=== PATIENT | female | born 1940 | race Caucasian/White ===

== ENCOUNTER → 2024-03-11 | Outpatient (CLI) | payer MEDICARE, BC, SELFPAY ==
[2024-03-11 12:46] LABS: Basophils % (Auto) 0 % (0-2.5); Eosinophils # (Auto) 0.2 Thou/mm3 (0.0-0.5); Eosinophils % (Auto) 3 % (0-10); Hematocrit 47.7 % (36.0-46.0); Hemoglobin 15.8 g/dL (12.0-16.0); Immature Granulocytes % (Auto) 1 % (0-0); Immature Granulocytes Auto 0.04 Thou/mm3 (0.00-0.00); Lymphocytes # (Auto) 1.3 Thou/mm3 (1.0-4.8); Lymphocytes % (Auto) 18 % (10-50); Mean Corpuscular HGB Conc 33.1 g/dl (31.0-37.0); Mean Corpuscular Hemoglobin 30.3 pg (25.0-35.0); Mean Corpuscular Volume 91 fL (80-100); Monocytes # (Auto) 0.7 Thou/mm3 (0.0-0.8); Monocytes % (Auto) 10 % (0-12); Neutrophils # (Auto) 4.7 Thou/mm3 (1.8-7.7); Neutrophils % (Auto) 68 % (37-80); Nucleated Red Blood Cell % 0 /100 WBC (0); Platelet Count 164 Thou/mm3 (140-440); RDW Standard Deviation 44.9 fL (36.4-46.3); Red Blood Count 5.22 Miln/mm3 (4.00-5.20); White Blood Count 6.9 Thou/mm3 (3.6-11.0)
[2024-03-11 13:05] LABS: Collection Type, Urine Clean Catch
[2024-03-11 13:10] LABS: Alanine Aminotransferase 17 U/L (10-49); Albumin, Serum 4.6 gm/dL (3.4-4.8); Alkaline Phosphatase 73 U/L (46-116); Anion Gap 8 (7-16); Aspartate Amino Transferase 19 U/L (0-34); BUN/Creatinine Ratio 23 Ratio (12-20); Bilirubin,Total 0.7 mg/dL (0.3-1.2); Blood Urea Nitrogen 23 mg/dL (9-23); Calcium 9.9 mg/dL (8.3-10.6); Calcium (Corrected) 9.9 mg/dL (8.5-10.1); Carbon Dioxide 29.2 mMol/L (20.0-31.0); Cardiac Risk Estimate 3.4 RATIO (3.7-5.6); Chloride 105 mMol/L (98-107); Cholesterol 224 mg/dL (132-200); Globulin 2.3 gm/dL (2.3-3.5); Glucose 93 mg/dL (74-106); HDL Cholesterol 65 mg/dL (40-60); LDL Cholesterol,Calculated 141 mg/dL (0-130); Osmolality,Calculated 286 (275-295); Potassium 4.7 mMol/L (3.4-5.1); Sodium 142 mMol/L (136-145); Thyroid Stimulating Hormone 4.63 uIU/mL (0.55-4.78); Total Protein 6.9 gm/dL (5.7-8.2); Triglycerides 89 mg/dL (30-150); eGFR 56 See Note
[2024-03-11 13:35] LABS: Bacteria,Urine 2+; Bilirubin,Urine Negative (Negative); Blood,Urine Trace (Negative); Color,Urine Yellow (Lt Yel-Yel); Glucose, Urine Negative (Negative); Ketones,Urine Negative (Negative); Leukocyte Esterase,Urine Positive (Negative); Nitrite,Urine Negative (Negative); Protein,Urine Trace (Neg - Trace); RBC,Urine 9 /hpf (0-3); Specific Gravity,Urine 1.023 (1.001-1.035); Squamous Epithelial Cell,Urine 1 /hpf (0-5); Urobilinogen,Urine Negative mg/dL (0.0-1.0); WBC,Urine 60 /hpf (0-5)
[2024-03-11 13:44] LABS: Clarity,Urine Hazy (Clear/Hazy)
== END | disposition home or self-care (01) ==
LOC: COPL 12:05
PROVIDERS: PCP Internal Medicine; Referring Provider Internal Medicine; Visit Provider Internal Medicine
DX: E03.9 Hypothyroidism, unspecified (principal); I10 Essential (primary) hypertension; E78.5 Hyperlipidemia, unspecified
CPT/HCPCS: 36415; 80053; 80061; 81001; 84443; 85025

== ENCOUNTER 2024-03-22 08:36 | Inpatient (IN) | payer MEDICARE, BC, SELFPAY ==
[2024-03-22] VITALS (24 sets, daily range): BP systolic 83–128; BP diastolic 52–80; PULSE 73–130; RESP 12–84; TEMP 36.5–37.1; O2SAT 87–100; BMI 28.3
--- NOTE | 2024-03-22 | XR_ITS ---
Examination: Right percutaneous nephrostomy drainage catheter placement Right nephrostogram Fluoroscopy AP abdomen 32 views Date and time of procedure: March 22, 2024 1510 hours INDICATIONS: Sepsis today, right flank pain, right hydronephrosis 4 x 8 mm proximal right ureteral calculus on CT stone study today, emergent need for relief of the patient's right hydronephrosis Informed consent provided. A timeout was completed verifying correct patient, procedure, site and positioning. Technique: Sonographic images obtained for localization of the right dilated renal collecting system Appropriate area is marked. The patient's site was prepped and draped in sterile fashion Maximal sterile barrier technique utilized, including hand hygiene Local anesthesia was obtained with 1% lidocaine. Low dose protocols were performed. One or more of the following dose reduction techniques were used; automated exposure control, adjustment of the mA and/or KV according to patient size, use of iterative reconstruction technique. Site right portable apparatus utilized to confirm dilated right renal collecting system Utilizing ultrasonographic guidance successful 21-gauge needle puncture into the dilated renal collecting system Ultrasound images recorded and stored 0.18 wire guide is introduced through the needle into the renal collecting system followed by 5 Malay catheter 0.35 wire guide dilators and finally a 10 Malay nephrostomy tube in proper position with contrast injection cystogram 10 cc. Estimated blood loss 4 cc Patient instable condition at completion procedure Impression: Successful ultrasound and fluoroscopically guided insertion right percutaneous nephrostomy tube Right nephrostogram demonstrates satisfactory position of the nephrostomy drainage catheter Fluoroscopy 0.8 minute radiation dose 21.58 milligray 32 spot fluoroscopic films of the abdomen
--- NOTE | 2024-03-22 08:58 | EDNOTE_ITS ---
ED Fever RME/HPI General Chief Complaint: Fever Stated Complaint: FEVER/ HEADACHE Time Seen by Provider: 03/22/24 08:57 Arrival date/time: 03/22/24 08:36 RME / HPI RME / HPI Narrative: 83 year old female with history of CVA, hypertension, hyperlipidemia, hypothyroidism, PE/DVT on Eliquis presents to the ED BIBA from home for evaluation of feeling lousy today. Reports fevers x 2 days, nausea, vomiting, headache, and abdominal pain. Reports the pain is located most to the right mid abdomen that moves around to right flank/back, rating as moderate. Patient mentioned she was recently diagnosed with a bladder infection and started on Amoxicillin. Today denies any painful urination or hematuria. Related Data Home Medications ?Medication ?Instructions ?Recorded ?Confirmed levothyroxine 50 mcg tablet 50 mcg PO QAM 12/15/18 12/18/21 amlodipine 5 mg tablet 5 mg PO QDAY 12/18/21 12/18/21 atenolol 50 mg tablet 50 mg PO QDAY 12/18/21 12/18/21 atorvastatin 10 mg tablet 10 mg PO QDAY 12/18/21 09/18/23 Previous Rx's ?Medication ?Instructions ?Recorded warfarin 5 mg tablet 5 mg PO QDAY@1200 #30 tabs 09/21/23 Allergies Allergy/AdvReac Type Severity Reaction Status Date / Time acetaminophen [From Vicodin] Allergy Severe Rash Verified 12/18/21 09:41 hydrocodone [From Vicodin] Allergy Severe Rash Verified 12/18/21 09:41 nut - unspecified Allergy Severe Swelling Verified 12/18/21 09:41 of Lip/Tongue/Throat peanut Allergy Severe Swelling Verified 09/18/23 09:31 of Lip/Tongue/Throat latex Allergy Unknown RASH Verified 12/18/21 09:41 Review of Systems Review of Systems Narrative Review of Systems: GEN: +fever, no chills, no weight loss EYES: No discharge, no visual changes, no pain HEENT: No ear pain, no congestion, no sore throat PULM: No shortness of breath, no cough, no congestion CV: No chest pain, no palpitations GI: +nausea, +vomiting, no diarrhea, +pain, no constipation : No frequency, no urgency, no dysuria MUSC/SKEL: No joint pain, +back pain SKIN: No rash NEURO: No weakness, +headache Past Medical History Past Medical History NEUROLOGIC: Positive Neurological Disorders, Cerebrovascular Accident (5 years ago) and Migraine CARDIAC: Positive Heart Murmur, Hypercholesterolemia and Hypertension RESPIRATORY: Positive Pulmonary Embolism (stopped taking xarelto beginning of mar 2023 due to wagner of medicine) Family History FAMILY HISTORY: Positive Family Cancer Surgical History SURGICAL: Positive Hysterectomy Social History SMOKING STATUS: Never smoker SUBSTANCE USE: does not use Physical Exam Narrative Physical exam: GENERAL APPEARANCE: alert and oriented x 4, well-developed, well-nourished, no acute distress HEENT: Normocephalic, atraumatic; pupils equal, round, reactive to light; EOMI; mucous membranes pink, moist; oropharynx clear NECK: Supple LUNGS: CTABL; no wheezes, no rales, no rhonchi HEART: Regular rate, regular rhythm; normal S1, S2; no murmurs ABDOMEN: non distended; normal BS; soft, no tenderness, no guarding, no rebound; no masses, no organomegaly, no hernia BACK: no CVA tenderness EXTREMITIES: atraumatic; no edema NEUROLOGIC: awake; alert and oriented x4; cranial nerves II-XII grossly intact; no focal sensory or motor deficits PSYCHIATRIC: appropriate mood and affect SKIN: warm, dry, normal color; no rashes Course Course Course Narrative: 1211: I spoke with transfer nurse and aware of plan to transfer for urology. 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 Care 03/22/24 09:03 Active EKG (ED ONLY) *Do not use* NOW Care 03/22/24 09:[address] abdomen pelvis wo con Stat Exams 03/22/24 09:08 Completed EKG (ED Only) Stat Exams 03/22/24 09:03 Draft IR nephrostogram RT Stat Exams 03/22/24 Ordered IR nephrostogram RT Stat Exams 03/22/24 Ordered US guide needle placement Stat Exams 03/22/24 15:00 Ordered XR chest 1V portable Stat Exams 03/22/24 09:03 Completed B-Type Natriuretic Peptide Stat Lab 03/22/24 09:27 Completed Blood Culture (Lab) Stat Lab 03/22/24 09:20 Received CBC Stat Lab 03/22/24 09:27 Completed Comprehensive Metabolic Panel Stat Lab 03/22/24 09:27 Completed Lactate (Lactic Acid) Stat Lab 03/22/24 09:27 Completed Lactic Acid, 3 HR Stat Lab 03/22/24 13:08 Completed Lipase Stat Lab 03/22/24 09:27 Completed Magnesium Stat Lab 03/22/24 09:27 Completed Partial Thromboplastin Time Stat Lab 03/22/24 09:27 Completed Procalcitonin Stat Lab 03/22/24 09:27 Completed Prothrombin Time with INR Stat Lab 03/22/24 09:27 Completed Troponin I Stat Lab 03/22/24 09:27 Completed Urinalysis Stat Lab 03/22/24 12:30 Completed Urine Culture Stat Lab 03/22/24 12:30 Received Aspirin Chew Med 03/22/24 12:03 Discontinued 324 mg PO X1 ONE Lidocaine 1% Pf 30 ml [Xylocaine 1% Pf 30 ml] Med 03/22/24 15:10 Discontinued 30 ml .ROUTE .STK-MED ONE NALOXONE INJ (Vial) [Narcan Inj (Vial)] Med 03/22/24 15:09 Discontinued 0.4 mg .ROUTE .STK-MED ONE Ondansetron Inj [Zofran Inj] Med 03/22/24 15:10 Discontinued 4 mg .ROUTE .STK-MED ONE Sodium Chloride 0.9% 1000 ml [Ns] 1,000 ml Med 03/22/24 09:03 Discontinued IV 999 mls/hr Sodium Chloride 0.9% 1000 ml [Ns] 1,000 ml Med 03/22/24 12:03 Discontinued IV 999 mls/hr cefTRIAXone [Rocephin] 1,000 mg Med 03/22/24 09:04 Discontinued Sodium Chloride 0.9% [Ns] 50 ml IV X1 fentaNYL INJ [Sublimaze Inj] Med 03/22/24 15:10 Discontinued 200 mcg .ROUTE .STK-MED ONE Vital Signs Vital signs: Vital Signs Temperature 97.9 F 03/22/24 08:39 Pulse Rate 119 H 03/22/24 08:39 Respiratory Rate 18 03/22/24 08:39 Blood Pressure 91/62 03/22/24 08:39 Pulse Oximetry (%) 93 L 03/22/24 08:39 Oxygen Delivery Method Room Air 03/22/24 08:39 Pulse ox is 93% on room air which is adequate. Fever MDM Narrative MDM Narrative:: IKristen, luis scribing for and in the presence of Dr. Mary. Patient data External records reviewed:: [facility] previous records (I reviewed admission from 09/17/2023 through 09/21/2023 for PE. Patient has no previous urine cultures. ) and EMS form Clinical information provided by:: patient and EMS (Provided prehospital course) Social determinants that could affect healthcare access:: none Patient has the following chronic illnesses:: CVA, hypertension, hyperlipidemia, hypothyroidism, PE/DVT on Eliquis How is presenting disease/condition affected by chronic disease/condition?: exacerbated by Evaluation data The following diagnostics were reviewed and interpreted by me:: lab results, radiology exam(s) and EKG tracing(s) (Sinus tachycardia, rate 101, right bundle branch block. ) Lab and/or radiology exams considered but not ordered:: None Interpretation Summary: Ordering Physician: Jackeline Mary MD Date of Service: 03/22/24 Procedure(s): XR chest 1V portable Accession Number(s): [id number] cc: Ron Min MD; Jcakeline Mary MD; Vitaly Gallagher MD~ Examination: AP chest single view TECHNIQUE: AP portable sitting chest single view Exam date and time: March 22, 2024 at 0919 hours Comparison September 17, 2023 INDICATIONS: Chest pain today. FINDINGS: Normal heart size Ectatic thoracic aorta. Mild vascular congestion. No lobar pneumonia or pulmonary edema Prominent osteopenia IMPRESSION: Mild vascular congestion Dictated By: Ron Min MD Signed By: <Electronically signed by Ron Min MD in OV> 03/22/24 1042 ======= Ordering Physician: Jackeline Mary MD Date of Service: 03/22/24 Procedure(s): CT abdomen pelvis wo con Accession Number(s): [id number] cc: Ron Min MD; Jackeline Mary MD; Vitaly Gallagher MD~ Examination: CT abdomen and pelvis without contrast. Coronal 3-D reconstructions. Sagittal 2-D reconstructions. Date and time of exam:March 22, 2024 0931 hours INDICATIONS: Onset right-sided flank pain with fever today CTDI: vol (mGy): 9.49 DLP: (mGycm): 486 Technique: Axial images of the abdomen have been obtained, 3 mm slice thickness Intravenous contrast material has not been administered. Low dose protocols were performed. One or more of the following dose reduction techniques were used; automated exposure control, adjustment of the mA and/or KV according to patient size, use of iterative reconstruction technique. 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 IMPRESSION: Mild right hydronephrosis secondary to 4 x 8 mm proximal right ureteral calculus Dictated By: Ron Min MD Signed By: <Electronically signed by Ron Min MD in OV> 03/22/24 1056 Medications / Prescriptions Medications or Prescriptions considered but not ordered:: None Medication administrations:: Medication Administration History Discontinued Medications Aspirin (Aspirin 81 Mg Chew) 324 mg PO X1 ONE Stop: 03/22/24 12:04 Last Admin: 03/22/24 12:11 Dose: 324 mg Documented By: JOJO Fentanyl Citrate (Fentanyl Cit Inj 50 Mcg/Ml Amp 2ml) Confirm Administered Dose 200 mcg .ROUTE .STK-MED ONE Stop: 03/22/24 15:11 Sodium Chloride (Ns) 1,000 mls @ 999 mls/hr IV .Q1H1M ONE Stop: 03/22/24 10:03 Last Infusion: 03/22/24 11:04 Dose: Infused Documented By: Admin: 03/22/24 09:22 Dose: 999 mls/hr Documented By: JOJO Ceftriaxone Sodium 1,000 mg/ (Sodium Chloride) 50 mls @ 100 mls/hr IV X1 ONE Stop: 03/22/24 09:33 Last Infusion: 03/22/24 11:03 Dose: Infused Documented By: Admin: 03/22/24 09:22 Dose: 100 mls/hr Documented By: JOJO Sodium Chloride (Ns) 1,000 mls @ 999 mls/hr IV .Q1H1M ONE Stop: 03/22/24 13:03 Last Infusion: 03/22/24 14:44 Dose: Infused Documented By: Admin: 03/22/24 12:06 Dose: 999 mls/hr Documented By: JOJO Lidocaine HCl (Lidocaine Inj Pf 1% 30 Ml Vial) Confirm Administered Dose 30 ml .ROUTE .STK-MED ONE Stop: 03/22/24 15:11 Naloxone HCl (Naloxone Inj 0.4 Mg/Ml Vial) Confirm Administered Dose 0.4 mg .ROUTE .STK-MED ONE Stop: 03/22/24 15:10 Ondansetron HCl (Ondansetron Inj 2 Mg/Ml Inj 2 Ml) Confirm Administered Dose 4 mg .ROUTE .STK-MED ONE Stop: 03/22/24 15:11 See above Consultations Consultation(s) initiated? (list below): Yes Consultation #1 (Physician, Specialty, Details): I spoke with transfer nurse at [facility]. Discussed patients PMHx, HPI, ED course, exam findings, labs, and radiology results. Time: 13:38 Consultation #2 (Physician, Specialty, Details): I spoke with Malena, transfer nurse at [facility]. States she presented the case to [facility] urologist Dr. Amaury Guerra who recommended IR to place a nephrostomy and treat the sepsis here. States she can follow up with patient on an outpatient basis. Time: 14:35 Consultation #3 (Physician, Specialty, Details): 1438: I spoke with radiologist Dr. Min. Discussed patients HPI, ED course, radiology results, and urologist Dr. Guerra's recommendations. States he is able to inset nephrostomy. 1441: I spoke with resident Dr. Quresh working with Dr. Rasheed. Discussed patients PMHx, HPI, ED course, exam findings, labs, and radiology results. The hospitalist agree to accept the patient for admission. 1510: Dr. Rasheed reports patient's PCP is Dr. Gallagher, advised we consult with her for admission. 1520: I spoke with patients PCP Dr. Gallagher. Discussed patients PMHx, HPI, ED course, exam findings, labs, and radiology results. She agrees to accept the patient for admission. Diagnosis Fever Differential Diagnosis: fever of unknown origin, gastroenteritis, comm unity acquired pneumonia, pyelonephritis, viral infection, sepsis and influenza Most likely diagnosis given after review of the tests above:: Elevated troponin Hydronephrosis with urinary obstruction due to reteral calculus Right ureteral stone Thrombocytopenia Hypokalemia Sepsis Acute UTI Admission Indicated Admission indicated?: indicated Admission Request Was there a request for admission?: Yes Admission Attestation Admission request attestation: Discussed case with [] from Hospitalist service regarding admission. Discussed patients ED course, exam findings, labs, and radiology results. The Hospitalist [agrees,declines] to accept the patient for admission. Disposition Plan Disposition Plan: Admit Discharge Plan Plan Patient Disposition: Admit Acute Care w/in Hospital Disposition Comment: Dr. Gallagher admitting Prescriptions/Referrals Prescriptions/Med Rec: No Action levothyroxine 50 mcg tablet 50 mcg PO QAM Patient Comments: TAKE 1 TABLET BY MOUTH EVERY DAY atorvastatin 10 mg tablet 10 mg PO QDAY Patient Comments: TAKE 1 TABLET BY MOUTH EVERY DAY amlodipine 5 mg tablet 5 mg PO QDAY Patient Comments: TAKE 1 TABLET BY MOUTH EVERY DAY atenolol 50 mg tablet 50 mg PO QDAY Patient Comments: TAKE 1 TABLET BY MOUTH EVERY DAY warfarin 5 mg Tablet 5 mg PO QDAY@1200 Qty: 30 0RF Referrals: Vitaly Gallagher MD [Primary Care Provider] - In 1 week Problem List Clinical Impression: Elevated troponin, Hydronephrosis with urinary obstruction due to ureteral calculus, Right ureteral stone, Thrombocytopenia, Hypokalemia, Sepsis, Acute UTI Patient/Caregiver Discharge Instructions Print Language: Malawian Stand Alone Forms: Josi Award Info., Patient Portal Info Letter
--- NOTE | 2024-03-22 09:03 | XR_ITS ---
Examination: AP chest single view TECHNIQUE: AP portable sitting chest single view Exam date and time: March 22, 2024 at 0919 hours Comparison September 17, 2023 INDICATIONS: Chest pain today. FINDINGS: Normal heart size Ectatic thoracic aorta. Mild vascular congestion. No lobar pneumonia or pulmonary edema Prominent osteopenia IMPRESSION: Mild vascular congestion
--- NOTE | 2024-03-22 09:03 | EKG_ITS ---
[facility] Test Date: 2024-03-22 Pat Name: ZENIA DIAZ Department: Room: - Gender: Female Civil Attorney: : 1940 Requested By: Jackeline Grider Order Number: [id number] Reading MD: Jackeline Grider Measurements Intervals [place] Rate: 101 P: -8 [place]: 128 QRS: -57 QRSD: 122 T: -14 QT: 322 QTc: 419 Interpretive Statements SINUS TACHYCARDIA RIGHT BUNDLE BRANCH BLOCK [120+ ms QRS DURATION, UPRIGHT V1, 40+ ms S IN I/aVL/V4/V5/V6] LEFT ANTERIOR FASCICULAR BLOCK [QRS AXIS <= -45, QR IN I, RS IN II] POSSIBLE ANTERIOR MYOCARDIAL INFARCTION , OF INDETERMINATE AGE [30 ms Q WAVE IN V3/V4, OR R < 0.2 mV IN V4] Compared to ECG 12/15/2018 11:22:44 Myocardial infarct finding now present Sinus rhythm no longer present /store/S0/[id number].pdf
--- NOTE | 2024-03-22 09:08 | XR_ITS ---
Examination: CT abdomen and pelvis without contrast. Coronal 3-D reconstructions. Sagittal 2-D reconstructions. Date and time of exam:March 22, 2024 0931 hours INDICATIONS: Onset right-sided flank pain with fever today CTDI: vol (mGy): 9.49 DLP: (mGycm): 486 Technique: Axial images of the abdomen have been obtained, 3 mm slice thickness Intravenous contrast material has not been administered. Low dose protocols were performed. One or more of the following dose reduction techniques were used; automated exposure control, adjustment of the mA and/or KV according to patient size, use of iterative reconstruction technique. 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 IMPRESSION: Mild right hydronephrosis secondary to 4 x 8 mm proximal right ureteral calculus
[2024-03-22] MEDS: SODIUM CHLORIDE 0.9% 1000 ML 1,000 ML 999 ML IV ×2 (09:22→12:06)
[2024-03-22 09:36] LABS: Lactate (Lactic Acid) 3.5 mMol/L (0.4-2.0)
[2024-03-22 09:43] LABS: Basophils % (Auto) 0 % (0-2.5); Eosinophils % (Auto) 0 % (0-10); Hematocrit 45.9 % (36.0-46.0); Hemoglobin 15.1 g/dL (12.0-16.0); Immature Granulocytes % (Auto) 2 % (0-0); Immature Granulocytes Auto 0.16 Thou/mm3 (0.00-0.00); Lymphocytes # (Auto) 0.2 Thou/mm3 (1.0-4.8); Lymphocytes % (Auto) 2 % (10-50); Mean Corpuscular HGB Conc 32.9 g/dl (31.0-37.0); Mean Corpuscular Volume 91 fL (80-100); Monocytes # (Auto) 0.1 Thou/mm3 (0.0-0.8); Monocytes % (Auto) 1 % (0-12); Neutrophils # (Auto) 10.5 Thou/mm3 (1.8-7.7); Neutrophils % (Auto) 95 % (37-80); Nucleated Red Blood Cell % 0 /100 WBC (0); Platelet Count 85 Thou/mm3 (140-440); RDW Standard Deviation 45.7 fL (36.4-46.3); Red Blood Count 5.03 Miln/mm3 (4.00-5.20)
[2024-03-22 09:55] LABS: INR 1.2 (0.9-1.3); Partial Thromboplastin Time 29.6 Seconds (22.0-36.0)
[2024-03-22 10:01] LABS: B-Type Natriuretic Peptide 168 pg/mL (0-100)
[2024-03-22 10:21] LABS: Alanine Aminotransferase 31 U/L (10-49); Albumin, Serum 3.8 gm/dL (3.4-4.8); Albumin/Globulin Ratio 1.7 (1.2-2.2); Alkaline Phosphatase 100 U/L (46-116); Anion Gap 11 (7-16); Aspartate Amino Transferase 45 U/L (0-34); BUN/Creatinine Ratio 17 Ratio (12-20); Bilirubin,Total 1.7 mg/dL (0.3-1.2); Blood Urea Nitrogen 25 mg/dL (9-23); Calcium (Corrected) 9.2 mg/dL (8.5-10.1); Carbon Dioxide 25.6 mMol/L (20.0-31.0); Chloride 104 mMol/L (98-107); Creatinine (Component) 1.5 mg/dL (0.6-1.3); Estimated Creatinine Clearance 23.4 mL/min (>60); Globulin 2.2 gm/dL (2.3-3.5); Glucose 111 mg/dL (74-106); Lipase 38 U/L (12-53); Magnesium 1.6 mg/dL (1.6-2.6); Osmolality,Calculated 286 (275-295); Potassium 3.3 mMol/L (3.4-5.1); Sodium 141 mMol/L (136-145); eGFR 35 See Note
[2024-03-22 10:36] LABS: Procalcitonin 75.43 ng/ml (0.0-0.49)
[2024-03-22 10:50] LABS: Troponin I 0.375 ng/mL (0.0-0.045)
[2024-03-22] MEDS: ASPIRIN 81 MG CHEW 324 MG PO (12:11)
[2024-03-22 12:33] LABS: Reflex Lactate? Y
[2024-03-22 12:38] LABS: Collection Type, Urine Clean Catch
[2024-03-22 12:48] LABS: Bacteria,Urine 1+; Bilirubin,Urine Negative (Negative); Blood,Urine 3+ (Negative); Color,Urine Yellow (Lt Yel-Yel); Glucose, Urine Negative (Negative); Ketones,Urine Negative (Negative); Leukocyte Esterase,Urine Positive (Negative); Nitrite,Urine Negative (Negative); Protein,Urine 2+ (Neg - Trace); RBC,Urine 42 /hpf (0-3); Specific Gravity,Urine 1.022 (1.001-1.035); Squamous Epithelial Cell,Urine 2 /hpf (0-5); WBC,Urine 321 /hpf (0-5)
[2024-03-22 13:12] LABS: Clarity,Urine Hazy (Clear/Hazy)
[2024-03-22 13:13] LABS: Lactic Acid, 3 HR 3.5 mMol/L (0.4-2.0)
--- NOTE | 2024-03-22 13:19 | PC.CM ---
Addendum entered by Jaswinder Cespedes RN 03/22/24 17:02: 1655 faxed the outpatient referral to [facility] at [phone]. I also added the information on the discharge plan. 1649 called [facility] at [phone]. Unable to make appt for the pt. Unable to speak to anyone. Addendum entered by Jaswinder Cespedes RN 03/22/24 16:41: 1620 Received updated referral from for urology Dr. Amaury Guerra. [facility]. [address], [address]. [place]. Office number [phone]. 1619 called [phone]. It is the number for [facility] stat transfers, spoke to Malena. Malena stated she will fax me a new referral form with updated number. 1600 I called the number [phone] to make appt for the pt. It was picked up by [facility]. The employee representative informed me to call [phone] instead. Addendum entered by Jaswinder Cespedes RN 03/22/24 15:19: [address] Mary regarding POC. Dr. Simon stated pt will be admitted. I also updated Dr. Simon that I received blank form from [facility] regarding outpatient referral. Pt to follow up with urologist Dr. Amaury Guerra in 2 weeks at [address] [place], [place] [id number]. , fax [phone]. Pt to call the urology center and make appt. per [facility]. Addendum entered by Jaswinder Cespedes RN 03/22/24 14:42: 1433 received call from Malena at [facility]. Per Malena her urologist Dr. Amaury Davidson stated IR can place nephrostomy tube and treat the pt infection and pt can be followed as a outpatient with her in 2 weeks. Malena also wants to speak to Dr. Simon. Conference call connected. Addendum entered by Jaswinder Cespedes RN 03/22/24 13:40: 1340 images pushed to [facility] via [employer]. Addendum entered by Jaswinder Cespedes RN 03/22/24 13:36: 1332 Called [facility], spoke to Malena and initiated the transfer. Malena wants to speak with Dr. Mary. Conference call connected. Addendum entered by Jaswinder Cespedes RN 03/22/24 13:30: 1330 Called [facility] to initiate the transfer, left VM. Original Note: 1318 clinicals sent to [facility] and [facility]. [address] Mary, pt needs to be transferred for obstructing kidney stone needs urology services.
--- NOTE | 2024-03-22 15:00 | XR_ITS ---
Examination: Limited renal sonogram Exam date and time: March 22, 2024 1321 hours INDICATIONS: Renal localization right kidney for nephrostomy, CT abdomen pelvis study March 22, 2024 mild right hydronephrosis 4 x 8 mm proximal right ureteral calculus TECHNIQUE AND FINDINGS: Sonographic images right kidney for localization, marked area on the right flank IMPRESSION: Limited right renal sonogram
--- NOTE | 2024-03-22 15:11 | PD.ADDHP ---
Addendum History & Physical Addendum Date of report being addended: 03/22/24 Narrative: Attending's attestation: I reviewed labs, imaging, EKG, home medications and prior available records. Face to face evaluation was performed by me. I have personally examined the patient and discussed assessment and plan with the IM team. I reviewed the resident note and agree with the plan with exceptions as below. Obstructive uropathy Acute UTI YOLANDA Nausea and vomiting Non-STEMI Thrombocytopenia Hypothyroidism History of DVT Plan: Transfer was rejected by [facility]. Contacted IR: Plan for nephrostomy tube Start IV Zosyn IV fluids Follow-up UA Monitor kidney function. Avoid nephrotoxins. Renally dosed medications Elevated troponin is likely demand ischemia. Trend troponin. Continue telemetry Resume home anticoagulation
[2024-03-22] MEDS: LIDOCAINE INJ PF 1% 30 ML VIAL INFL (15:21)
[2024-03-22] MEDS: SODIUM CHLORIDE 0.9% 250 ML 250 ML 20 ML IV (15:21)
[2024-03-22] MEDS: fentaNYL CIT INJ 50 mCg/ML AMP 2ML IVP ×2 (15:36→15:38)
--- NOTE | 2024-03-22 15:55 | PD.RESHP ---
Documentation for date of: 03/22/24 HPI History of Present Illness Chief complaint: Abdominal pain History of present illness: HPI:An 83-year-old female patient known case of hypertension, dyslipidemia, hypothyroidism, stroke, DVTs on Eliquis, presented to the ED due to abdominal pain started 3 days before admission. The pain started in the right side and it moved to the right loin and to the back. The pain is associated with fever and chills she also mentioned that she has difficulty urinating. She feels that she is still have full bladder even after she urinated. Patient denied any hematuria denied any cough or shortness of breath. Denied any palpitation or chest pain. Denied any dizziness or fall down. Home medications: Amlodipine, atorvastatin, levothyroxine, Eliquis ED course:-At the ED patient was found to have blood pressure of 91/62, pulse rate of 116, respiratory rate of 18, temperature of 97.9, she was found to have WBC count of 11, hemoglobin stable at 15.1, noticed to have significantly low platelets of 85, had INR was found to be 1.1, potassium 3.3, BUN of 25, creatinine 1.5 her baseline serum creatinine is 9, glucose of 111, lactic acid of 3.5, total bilirubin 1.7, troponin 0.394, BMP 168, procalcitonin found to be 75 chest x-ray showed mild vascular congestion, CT scan of the abdomen and pelvis showed mild right hydronephrosis secondary to 4 x 8 mm proximal right ureteral calculus. Patient was given 2 L bolus of IV fluids by the ED team, she is now on maintenance, and she was given 1 dose of Zosyn. Past medical history of: As above Social hx: Alcohol: Denied Tobacco: Denied Illicit drugs: Denied Allergies: Morphine Review of Systems Review of Systems Systems Reviewed: All systems reviewed, normal except as documented Past Medical History Past Medical History NEUROLOGIC: Positive Neurological Disorders, Cerebrovascular Accident and Migraine; Negative Seizures CARDIAC: Positive Heart Murmur, Hypercholesterolemia and Hypertension; Negative Cardiac Disorders or Congestive Heart Failure RESPIRATORY: Positive Pulmonary Embolism; Negative Chronic Obstructive Pulmonary Disease (COPD), Asthma or Sleep Apnea GASTROINTESTINAL: Negative Gastrointestinal Disorders GENITOURINARY: Negative Genitourinary Disorders or Renal Disease MUSCULOSKELETAL: Negative Musculoskeletal Disorders ENDOCRINE: Negative Endocrine Disorders, Diabetes Mellitus Type 1 or Diabetes Mellitus Type 2 HEMATOLOGIC: Negative Blood Disorders or Sickle Cell Disease OTHER HISTORY: Negative Blood Transfusions, Blood Transfusion Reaction or Anesthesia Reactions Family History FAMILY HISTORY: Positive Family Cancer Surgical History SURGICAL: Positive Hysterectomy Social History SMOKING STATUS: Never smoker SUBSTANCE USE: does not use Exam Vital Signs Temp Pulse Resp BP Pulse Ox O2 Del Method O2 Flow Rate 98.7 F 98 20 113/72 100 Nasal Cannula 2 03/22/24 12:02 03/22/24 15:55 03/22/24 15:55 03/22/24 15:00 03/22/24 15:55 03/22/24 15:00 03/22/24 15:55 Narrative Exam GEN: AOx3, able to speak full sentences HEENT: NC/AC, oral mucosa moist, neck supple CVS: RRR, S1-S2 present, no murmurs appreciated RESP: CTAB GI: soft,non distended, Rt CVA tender, NBS MSK: able to move all 4 limbs, no lower extremity edema SKIN: warm and dry AUTOMOBILE ASSEMBLER: CN II-XII and Sensation grossly intact. Results: Labs 03/22/24 09:27 03/22/24 09:27 Labs: Short CBC 03/22/24 Range/Units 09:27 WBC 11.0 (3.6-11.0) Thou/mm3 Hgb 15.1 (12.0-16.0) g/dL Hct 45.9 (36.0-46.0) % Plt Count 85 L D (140-440) Thou/mm3 BMP 03/22/24 09:27 Sodium 141 Potassium 3.3 L Chloride 104 Carbon Dioxide 25.6 BUN 25 H Creatinine 1.5 H Glucose 111 H Calcium 9.0 Cardiac Enzymes 03/22/24 Range/Units 09:27 Troponin I 0.375 H* (0.0-0.045) ng/mL Liver Function 03/22/24 Range/Units 09:27 Total Bilirubin 1.7 H (0.3-1.2) mg/dL AST 45 H (0-34) U/L ALT 31 (10-49) U/L Alkaline Phosphatase 100 (46-116) U/L Albumin 3.8 (3.4-4.8) gm/dL Urine 03/22/24 Range/Units 12:30 Urine Color Yellow (Lt Yel-Yel) Urine Clarity Hazy (Clear/Hazy) Urine pH 6.0 (5.0-7.0) Ur Specific [place] 1.022 (1.001-1.035) Urine Protein 2+ A (Neg - Trace) Urine Glucose (UA) Negative (Negative) Quality Measures Quality Measures sepsis Current suspected stage: septic shock (LA >4 and/or hypotension) IVF 30 ml/kg given for lactic acid >4 and/or hypotension: yes Vasopressors initiated: No Sepsis reassessment completed at (date): 03/22/24 Sepsis reassessment completed at (time): 16:00 Possible source: genitourinary Blood cultures ordered: completed in ED Antibiotic ordered: Yes Advance care planning discussed with:: patient Medications Home Medications and Allergies Home Medications ?Medication ?Instructions ?Recorded ?Confirmed ?Type levothyroxine 50 mcg tablet 50 mcg PO QAM 12/15/18 12/18/21 History amlodipine 5 mg tablet 5 mg PO QDAY 12/18/21 12/18/21 History atenolol 50 mg tablet 50 mg PO QDAY 12/18/21 12/18/21 History atorvastatin 10 mg tablet 10 mg PO QDAY 12/18/21 09/18/23 History Allergies Allergy/AdvReac Type Severity Reaction Status Date / Time acetaminophen [From Vicodin] Allergy Severe Rash Verified 12/18/21 09:41 hydrocodone [From Vicodin] Allergy Severe Rash Verified 12/18/21 09:41 nut - unspecified Allergy Severe Swelling Verified 12/18/21 09:41 of Lip/Tongue/Throat peanut Allergy Severe Swelling Verified 09/18/23 09:31 of Lip/Tongue/Throat latex Allergy Unknown RASH Verified 12/18/21 09:41 Visit Medications Fentanyl Citrate (Fentanyl Cit Inj 50 Mcg/Ml Amp 2ml) 50 mcg IVP Q2M PRN PRN Reason: PAIN Last Admin: 03/22/24 15:36 Dose: 50 mcg Fentanyl Citrate (Fentanyl Cit Inj 50 Mcg/Ml Amp 2ml) 30 mcg IVP Q2HR CHRIS Stop: 03/27/24 15:59 Sodium Chloride (Ns) 250 mls @ 20 mls/hr IV .[id number] CHRIS Stop: 03/23/24 03:59 Last Admin: 03/22/24 15:21 Dose: 20 mls/hr Piperacillin/Tazobactam/Dextrose (Zosyn) 100 mls @ 200 mls/hr IV Q8HR CHRIS Stop: 03/29/24 15:48 Piperacillin/Tazobactam/Dextrose (Zosyn) 50 mls @ 100 mls/hr IV X1 ONE Stop: 03/22/24 16:29 Ondansetron HCl (Ondansetron Inj 2 Mg/Ml Inj 2 Ml) 4 mg IV Q6H PRN; Protocol PRN Reason: NAUSEA OR VOMITING Stop: 04/21/24 15:42 Discontinued Medications Aspirin (Aspirin 81 Mg Chew) 324 mg PO X1 ONE Stop: 03/22/24 12:04 Last Admin: 03/22/24 12:11 Dose: 324 mg Sodium Chloride (Ns) 1,000 mls @ 999 mls/hr IV .Q1H1M ONE Stop: 03/22/24 10:03 Last Infusion: 03/22/24 11:04 Dose: Infused Ceftriaxone Sodium 1,000 mg/ (Sodium Chloride) 50 mls @ 100 mls/hr IV X1 ONE Stop: 03/22/24 09:33 Last Infusion: 03/22/24 11:03 Dose: Infused Sodium Chloride (Ns) 1,000 mls @ 999 mls/hr IV .Q1H1M ONE Stop: 03/22/24 13:03 Last Infusion: 03/22/24 14:44 Dose: Infused Lidocaine HCl (Lidocaine Inj Pf 1% 30 Ml Vial) 30 ml INFL X1 ONE Stop: 03/22/24 15:20 Last Admin: 03/22/24 15:21 Dose: 30 ml Assessment & Plan Plan Summary:An 83-year-old female patient known case of hypertension, dyslipidemia, hypothyroidism, stroke, DVTs on Eliquis, presented to the ED due to abdominal pain started 3 days before admission. The pain started in the right side and it moved to the right loin and to the back. Patient was admitted for treatment of sepsis secondary to UTI Assessment and plan #Sepsis secondary to UTI #Pyelonephritis of the right side #Right kidney stone obstructive status post nephrostomy Patient presented with right-sided acute abdominal pain associated with fever and chills, WBC increased to 11, pulse rate was 119, she reported fever in which she used Tylenol at home. Urine analysis showed high level of WBCs CT scan showed obstructive hydronephrosis of the right kidney. Plan ? Admit patient to telemetry ? Start the patient on Zosyn IV every 8 hours 03/21? ? Tylenol for fever as needed ? Follow-up on the culture and urine culture results ? Nephrostomy care daily ? Consultation to the to the urologist Dr. Del Rosario was sent, pending recommendations ? Will hold her blood thinners medication today as we noticed blood in the nephrostomy bag ? Lactic acid trending # Elevated troponin-doubt Non-STEMI type II most likely myocardial strain Patient denied any chest pain, denied any shortness of breath, denied any previous episodes of heart attacks. Troponin was noticed to be mildly elevated 0.365. EKG was nonsignificant . Only showed old right bundle branch block with no signs of ischemic changes. Plan ? Trending troponin every 6 hours ? Will consider consulting horticultural services supervisor after significant increase of serum troponin or chest pain. #History of multiple DVTs Plan ? Will hold on her home medication Eliquis at this time after the nephrostomy ?Will consider resuming Eliquis within the next 24 to 48 hours #History of hypothyroidism Plan ? Resume home medication levothyroxine 50 mcg/day #History of hypertension On presentation patient blood pressure was on the soft side 91/56 Plan ? Patient blood pressure at this time is labile for that reason we will continue to monitor closely #History of dyslipidemia Plan ? Will hold home medications at this time Hospital Maintenance: FEN: Regular diet DVT ppx: SCDs GI ppx: Protonix IV lines: PIV Galaviz: None Code status: Full code Dispo: Telemetry - Patient's plan and care discussed with my attending, Dr. Aileen Orona MD Internal Medicine PGY-2 Attending Provider Attestation/Addendum Seen and examined with resident physician Dr. Umana. Note reviewed, agree with findings and recommendations. Patient admitted with sepsis, UTI, renal calculi causing obstructive uropathy and right hydronephrosis needing a right nephrostomy. Spoke with Dr. Saldaña will see her tomorrow.
[2024-03-22] MEDS: ONDANSETRON INJ 2 MG/ML INJ 2 ML 4 MG IV (16:11)
[2024-03-22] MEDS: PIPER/TAZO 3.375 GM 50 ML IV ×2 (17:16→22:07)
[2024-03-22 18:42] LABS: Troponin I 0.394 ng/mL (0.0-0.045)
[2024-03-22] MEDS: SODIUM CHLORIDE 0.9% 1000 ML 1,000 ML 75 ML IV (20:52)
--- NOTE | 2024-03-22 22:27 | PC.NURSE ---
CALLED DR. LOCK AND INFORMED HER ABOUT PT LOW BP, NEW ORDER GIVEN AND CARRIED OUT
[2024-03-22] MEDS: ALBUMIN HUMAN 25% IVPB 25 GM/100 ML BTL IV (22:51)
[2024-03-23] VITALS (8 sets, daily range): BP systolic 92–146; BP diastolic 61–81; PULSE 54–84; RESP 16–28; TEMP 36.1–36.2; O2SAT 92–99; BMI 30.2
[2024-03-23] MEDS: PIPER/TAZO 3.375 GM 50 ML IV ×3 (05:25→21:24)
[2024-03-23] MEDS: LEVOTHYROXINE SODIUM 25 MCG TABLET 50 MCG PO (05:25)
[2024-03-23 06:22] LABS: Basophils # (Auto) 0.1 Thou/mm3 (0.0-0.2); Basophils % (Auto) 0 % (0-2.5); Eosinophils % (Auto) 0 % (0-10); Hematocrit 38.4 % (36.0-46.0); Hemoglobin 12.2 g/dL (12.0-16.0); Immature Granulocytes % (Auto) 3 % (0-0); Immature Granulocytes Auto 0.58 Thou/mm3 (0.00-0.00); Lymphocytes # (Auto) 0.6 Thou/mm3 (1.0-4.8); Lymphocytes % (Auto) 3 % (10-50); Mean Corpuscular HGB Conc 31.8 g/dl (31.0-37.0); Mean Corpuscular Hemoglobin 30.3 pg (25.0-35.0); Mean Corpuscular Volume 96 fL (80-100); Monocytes # (Auto) 1.3 Thou/mm3 (0.0-0.8); Monocytes % (Auto) 6 % (0-12); Neutrophils # (Auto) 17.8 Thou/mm3 (1.8-7.7); Nucleated Red Blood Cell % 0 /100 WBC (0); RDW Standard Deviation 49.2 fL (36.4-46.3); Red Blood Count 4.02 Miln/mm3 (4.00-5.20); White Blood Count 20.4 Thou/mm3 (3.6-11.0)
[2024-03-23 06:30] LABS: Neutrophils % (Auto) 88 % (37-80); Platelet Count 64 Thou/mm3 (140-440)
[2024-03-23 06:36] LABS: Slide Review Platelets confirmed
[2024-03-23 06:52] LABS: Alanine Aminotransferase 19 U/L (10-49); Albumin, Serum 3.7 gm/dL (3.4-4.8); Albumin/Globulin Ratio 1.9 (1.2-2.2); Alkaline Phosphatase 53 U/L (46-116); Anion Gap 10 (7-16); Aspartate Amino Transferase 22 U/L (0-34); BUN/Creatinine Ratio 24 Ratio (12-20); Blood Urea Nitrogen 31 mg/dL (9-23); Calcium 8.4 mg/dL (8.3-10.6); Calcium (Corrected) 8.6 mg/dL (8.5-10.1); Carbon Dioxide 24.6 mMol/L (20.0-31.0); Chloride 106 mMol/L (98-107); Creatinine (Component) 1.3 mg/dL (0.6-1.3); Globulin 1.9 gm/dL (2.3-3.5); Glucose 95 mg/dL (74-106); Magnesium 1.6 mg/dL (1.6-2.6); Osmolality,Calculated 287 (275-295); Phosphorous 4.7 mg/dL (2.4-5.1); Potassium 4.9 mMol/L (3.4-5.1); Sodium 141 mMol/L (136-145); Total Protein 5.6 gm/dL (5.7-8.2); eGFR 41 See Note
[2024-03-23 10:14] LABS: Lactate (Lactic Acid) 1.9 mMol/L (0.4-2.0)
--- NOTE | 2024-03-23 10:25 | EKG_ITS ---
[facility] Test Date: 2024-03-23 Pat Name: ZENIA DIAZ Department: Room: S273A Gender: Female Director Ambulatory: [facility] : 1940 Requested By: Dong Orona Order Number: [id number] Reading MD: Dong Orona Measurements Intervals [place] Rate: 77 P: 33 IA: 118 QRS: 35 QRSD: 124 T: 28 QT: 366 QTc: 417 Interpretive Statements SINUS RHYTHM WITH SHORT IA INTERVAL RIGHT BUNDLE BRANCH BLOCK POSSIBLE ANTERIOR MYOCARDIAL INFARCTION , OF INDETERMINATE AGE MODERATE T-WAVE ABNORMALITY, CONSIDER LATERAL ISCHEMIA Compared to ECG 03/22/2024 09:53:52 Short IA interval now present T-wave abnormality now present Possible ischemia now present Sinus tachycardia no longer present Left anterior fascicular block no longer present Myocardial infarct finding still present /store/S0/[id number]/[id number].pdf
--- NOTE | 2024-03-23 10:40 | PC.NURSE ---
Bladder scan showed 430mL, patient was able to use bedpan and urinate 250. Sanon catheter ordered, but Dr. Del Rosario at bedside and cancelled sanon catheter and to continue to bladder scan.
--- NOTE | 2024-03-23 10:41 | PC.NURSE ---
Patient complaining of acid reflux/ chest pain, Dr. Gallagher notified. EKG and protonix ordered
[2024-03-23] MEDS: ALBUMIN HUMAN 25% IVPB 25 GM/100 ML BTL IV ×2 (10:53→21:24)
[2024-03-23] MEDS: SODIUM CHLORIDE 0.9% 1000 ML 1,000 ML 75 ML IV (10:54)
[2024-03-23] MEDS: PANTOPRAZOLE INJ 40 MG VIAL IVP (10:54)
[2024-03-23] MEDS: SUCRALFATE SUSP 1 GM/10 ML UDC PO (10:54)
--- NOTE | 2024-03-23 11:06 | PD.RESPRO ---
Documentation for date of: 03/23/24 Subjective Subjective Interval history: Summary:An 83-year-old female patient known case of hypertension, dyslipidemia, hypothyroidism, stroke, DVTs on Eliquis, presented to the ED due to abdominal pain started 3 days before admission. The pain started in the right side and it moved to the right loin and to the back. Patient was admitted for treatment of sepsis secondary to UTI 03/23/2024, patient was seen and examined at bedside. Patient denied any new symptoms she reported significant improvement since admission. She mentions that she feels that she wants to urinate. She urinated 450 mL of dark red urine offensive and other. Today patient was complaining of mild epigastric burning sensation. She reported the pain increased when laying flat. I mentioned to the patient that her chest pain at this time most likely is epigastric in nature, however we will repeat her EKG today to see if there is any ischemic changes. Her blood pressure on the soft side we will cautiously evaluate the patient if she needs nitroglycerin sublingual. With started the patient on sucralfate suspension x 1, pantoprazole [address] Del Rosario came and saw the patient talk to the nurse staff mentioned that the patient will need to follow-up in outpatient settings after 1 week. No need for Galaviz's catheter at this time per Dr. Del Rosario. Her blood culture grew out GNR and preliminary report, will wait for the final results. Her blood pressure still a little bit on the soft side 92/63, heart rate is 73. Will give the patient 1 bolus of IV fluids and continue half maintenance 75 mL of fluids in addition to her diet and will reassess. Her lactic acid down trended from 3.5-1.9, troponin peaked at 0.395 and started to downtrend for that reason we will hold on trending troponins at this time. Patient mentions that she has been taking nitroglycerin as needed that was prescribed to her by Dr. Vela for her chest discomfort. Exam Vital Signs Temp Pulse Resp BP Pulse Ox O2 Del Method O2 Flow Rate 97.0 F 54 L 28 H 92/63 97 Room Air 2 03/23/24 08:00 03/23/24 08:38 03/23/24 08:38 03/23/24 08:00 03/23/24 08:38 03/23/24 08:00 03/23/24 08:38 Narrative Exam GEN: AOx3, able to speak full sentences HEENT: NC/AC, oral mucosa dry, neck supple CVS: RRR, S1-S2 present, no murmurs appreciated RESP: CTAB GI: soft,non distended, Rt CVA tender Nephrostomy bag was clogged however it was flushed by Dr. Del Rosario, now it is draining the urine., NBS MSK: able to move all 4 limbs, no lower extremity edema SKIN: warm and dry AQUATICS COORDINATOR: CN II-XII and Sensation grossly intact. Objective Labs 03/24/24 11:18 03/24/24 11:18 Labs: Laboratory Results - last 24 hr 03/22/24 03/22/24 03/22/24 12:30 13:08 18:08 WBC RBC Hgb Hct MCV MCH MCHC RDW Std Deviation Plt Count Neut % (Auto) Lymph % (Auto) [place] % (Auto) Eos % (Auto) Baso % (Auto) Neut # (Auto) Lymph # (Auto) [place] # (Auto) Eos # (Auto) Baso # (Auto) Immature Gran # (Auto) Absolute Nucleated RBC Immature Gran % Nucleated RBC % Sodium Potassium Chloride Carbon Dioxide Anion Gap BUN Creatinine Estim Creat Clear Calc eGFR BUN/Creatinine Ratio Glucose Calculated Osmolality Lactic Acid 3.5 H Calcium Corrected Calcium Phosphorus Magnesium Total Bilirubin AST ALT Alkaline Phosphatase Troponin I 0.394 H* Total Protein Albumin Globulin Albumin/Globulin Ratio Ur Collection Type Clean Catch Urine Color Yellow Urine Clarity Hazy Urine pH 6.0 Ur Specific [place] 1.022 Urine Protein 2+ A Urine Glucose (UA) Negative Urine Ketones Negative Urine Blood 3+ A Urine Nitrite Negative Urine Bilirubin Negative Urine Urobilinogen (Auto) 3.0 Ur Leukocyte Esterase Positive Urine RBC 42 H Urine WBC 321 H Ur Squamous Epith Cells 2 Urine Bacteria 1+ A Misc Test Result 03/23/24 03/23/24 05:53 10:00 WBC 20.4 H D RBC 4.02 Hgb 12.2 D Hct 38.4 MCV 96 MCH 30.3 MCHC 31.8 RDW Std Deviation 49.2 H Plt Count 64 L D Neut % (Auto) 88 H Lymph % (Auto) 3 L [place] % (Auto) 6 Eos % (Auto) 0 Baso % (Auto) 0 Neut # (Auto) 17.8 H Lymph # (Auto) 0.6 L [place] # (Auto) 1.3 H Eos # (Auto) 0.0 Baso # (Auto) 0.1 Immature Gran # (Auto) 0.58 H Absolute Nucleated RBC 0.00 Immature Gran % 3 H Nucleated RBC % 0 Sodium 141 Potassium 4.9 D Chloride 106 Carbon Dioxide 24.6 Anion Gap 10 BUN 31 H Creatinine 1.3 Estim Creat Clear Calc 28.0 L eGFR 41 L BUN/Creatinine Ratio 24 H Glucose 95 Calculated Osmolality 287 Lactic Acid 1.9 Calcium 8.4 Corrected Calcium 8.6 Phosphorus 4.7 Magnesium 1.6 Total Bilirubin 1.0 D AST 22 ALT 19 Alkaline Phosphatase 53 D Troponin I Total Protein 5.6 L Albumin 3.7 Globulin 1.9 L Albumin/Globulin Ratio 1.9 Ur Collection Type Urine Color Urine Clarity Urine pH Ur Specific [place] Urine Protein Urine Glucose (UA) Urine Ketones Urine Blood Urine Nitrite Urine Bilirubin Urine Urobilinogen (Auto) Ur Leukocyte Esterase Urine RBC Urine WBC Ur Squamous Epith Cells Urine Bacteria Misc Test Result Platelets confirmed Quality Measures Quality Measures sepsis Current suspected stage: sepsis Possible source: genitourinary Blood cultures ordered: completed in ED Antibiotic ordered: Yes Advance care planning discussed with:: patient Assessment & Plan Assessment Current Active Medications: Generic Name Dose Route Start Last Admin Trade Name Freq PRN Reason Stop Dose Admin Fentanyl Citrate 30 mcg 03/22/24 16:09 Fentanyl Cit Inj 50 Mcg/Ml Amp 2ml IVP 03/27/24 16:08 Q4H PRN severe 8-10 Piperacillin/Tazobactam/Dextrose 50 mls @ 12.5 mls/hr 03/22/24 22:00 03/23/24 05:25 Zosyn IV 03/29/24 21:59 12.5 mls/hr Q8HR CHRIS Administration Sodium Chloride 1,000 mls @ 75 mls/hr 03/22/24 20:28 03/23/24 10:54 Ns IV 04/21/24 20:27 75 mls/hr .[id number] CHRIS Administration Albumin Human 25 gm in 100 mls @ 100 mls/hr 03/22/24 22:45 03/23/24 10:53 Albuminar-25 Ivpb IV 03/24/24 22:44 100 mls/hr BID CHRIS Administration Levothyroxine Sodium 50 mcg 03/23/24 06:00 03/23/24 05:25 Levothyroxine Sodium 25 Mcg Tablet PO 04/22/24 05:59 50 mcg ACBR CHRIS Administration Ondansetron HCl 4 mg 03/22/24 15:43 03/22/24 16:11 Ondansetron Inj 2 Mg/Ml Inj 2 Ml IV 04/21/24 15:42 4 mg Q6H PRN Administration NAUSEA OR VOMITING Protocol Pantoprazole Sodium 40 mg 03/24/24 09:00 Pantoprazole Inj 40 Mg Vial IVP 04/23/24 08:59 [facility]DAY [facility] Plan Summary:An 83-year-old female patient known case of hypertension, dyslipidemia, hypothyroidism, stroke, DVTs on Eliquis, presented to the ED due to abdominal pain started 3 days before admission. The pain started in the right side and it moved to the right loin and to the back. Patient was admitted for treatment of sepsis secondary to UTI Assessment and plan #Sepsis secondary to UTI #Pyelonephritis of the right side #Right kidney stone obstructive status post nephrostomy Patient presented with right-sided acute abdominal pain associated with fever and chills, WBC increased to 11, pulse rate was 119, she reported fever in which she used Tylenol at home. Urine analysis showed high level of WBCs CT scan showed obstructive hydronephrosis of the right kidney. Plan ? Admit patient to telemetry ? Start the patient on Zosyn IV every 8 hours 03/21? ? Tylenol for fever as needed ? Follow-up on the culture and urine culture results ? Nephrostomy care daily ? Consultation to the to the urologist Dr. Del Rosario was sent, pending recommendations ? Will hold her blood thinners medication today as we noticed blood in the nephrostomy bag ? Lactic acid trending # Elevated troponin-doubt Non-STEMI type II most likely myocardial strain #Questionable history of angina Patient denied any chest pain, denied any shortness of breath, denied any previous episodes of heart attacks. Troponin was noticed to be mildly elevated 0.365. EKG was nonsignificant . Only showed old right bundle branch block with no signs of ischemic changes. Patient reported that she has been taking nitroglycerin as needed that was prescribed by her glass technician Dr. Cerrato for her chest pain Troponin today started to downtrend from 0.395-0.2 Plan ?Repeat EKG today ? Stop trending troponins ? Will consider consulting glass technician after significant increase of serum troponin or chest pain. 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 Nephrostomy was done yesterday and it is draining bloody urine, Galaviz's catheter also draining bloody urine. Plan ? Will continue to hold Eliquis today as the patient nephrostomy and Galaviz's catheter follow-up bloody urine. ?Will consider resuming Eliquis within the next 24 to 48 hours #GERD Plan ? Protonix 40 mg IV daily ? Sucralfate x 1 suspension. #History of hypothyroidism Plan ? Resume home medication levothyroxine 50 mcg/day #History of hypertension On presentation patient blood pressure was on the soft side Plan ? Patient blood pressure at this time is labile for that reason we will continue to monitor closely #History of dyslipidemia Plan ? Will hold home medications at this time Hospital Maintenance: FEN: Regular diet DVT ppx: SCDs GI ppx: Protonix IV lines: PIV Galaviz: None Code status: Full code Dispo: Telemetry - Patient's plan and care discussed with my attending, Dr. Aileen Orona MD Internal Medicine PGY-2 Attending Provider Attestation/Addendum Seen and examined with resident physician Dr. Umana. Note reviewed, agree with findings and recommendations. Patient admitted with urosepsis Spoke to Dr. Saldaña-will plan for lithotripsy and stents 04/07/2024. Awaiting final cultures prior to discharge
[2024-03-23 11:10] LABS: Troponin I 0.242 ng/mL (0.0-0.045)
[2024-03-23] MEDS: Magnesium Sulfate 2 GM Ivpb 2 GM/50 ML BAG IV (12:37)
[2024-03-23] MEDS: RINGERS LACTATED 1000 ML 1,000 ML 999 ML IV (12:38)
--- NOTE | 2024-03-23 13:16 | PC.SS ---
[employer] conducted bedside contact with the patient conduct initial assessment and to discuss discharge planning. Patient confirmed demographic information. Patient resides at home with her spouse, Alexis Lozada . Patient is retired. Patient does not utilize DME to assist with ambulation. Patient does not utilize home oxygen. Patient currently on 2L nasal cannula. Patient describes ability to complete ADL?s independently. Patient identified spouse, Alexis Lozada; as medical surrogate decision maker. Patient?s PCP is Dr. Gallagher. Patient?s adoption manager is Dr. Cerrato. Patient does not participate with dialysis. Patient utilizes [facility] for medication services. If patient requires oxygen at the time of discharge, no preferred vendor identified. Patient confirmed that discharge plan is to return home. Family will provide transportation on behalf of the patient. No discharge needs identified by the patient. No further intervention required at this time, social science professor will be available to address any further concerns. Next of Kin: Alexis Lozada D/C Plan: Home
--- NOTE | 2024-03-23 20:10 | PC.NURSE ---
180 mL drainage from nephrostomy bag
[2024-03-24] VITALS (10 sets, daily range): BP systolic 145–173; BP diastolic 71–95; PULSE 53–85; RESP 17–25; TEMP 36.4–36.8; O2SAT 91–99; BMI 31.6
[2024-03-24] MEDS: PIPER/TAZO 3.375 GM 50 ML IV (05:40)
[2024-03-24] MEDS: LEVOTHYROXINE SODIUM 25 MCG TABLET 50 MCG PO (05:41)
[2024-03-24 06:05] LABS: Basophils # (Auto) 0.1 Thou/mm3 (0.0-0.2); Basophils % (Auto) 0 % (0-2.5); Eosinophils # (Auto) 0.1 Thou/mm3 (0.0-0.5); Eosinophils % (Auto) 1 % (0-10); Hematocrit 38.6 % (36.0-46.0); Hemoglobin 12.7 g/dL (12.0-16.0); Immature Granulocytes % (Auto) 11 % (0-0); Lymphocytes # (Auto) 0.6 Thou/mm3 (1.0-4.8); Lymphocytes % (Auto) 3 % (10-50); Mean Corpuscular HGB Conc 32.9 g/dl (31.0-37.0); Mean Corpuscular Hemoglobin 30.4 pg (25.0-35.0); Mean Corpuscular Volume 92 fL (80-100); Monocytes # (Auto) 0.8 Thou/mm3 (0.0-0.8); Monocytes % (Auto) 4 % (0-12); Neutrophils # (Auto) 14.6 Thou/mm3 (1.8-7.7); Neutrophils % (Auto) 81 % (37-80); Nucleated Red Blood Cell % 0 /100 WBC (0); RDW Standard Deviation 48.1 fL (36.4-46.3); Red Blood Count 4.18 Miln/mm3 (4.00-5.20); White Blood Count 18.1 Thou/mm3 (3.6-11.0)
[2024-03-24 06:10] LABS: Platelet Count 64 Thou/mm3 (140-440)
[2024-03-24 06:41] LABS: Slide Review Platelets confirmed
[2024-03-24 07:07] LABS: Alanine Aminotransferase 17 U/L (10-49); Albumin, Serum 4.3 gm/dL (3.4-4.8); Albumin/Globulin Ratio 2.2 (1.2-2.2); Alkaline Phosphatase 71 U/L (46-116); Anion Gap 12 (7-16); Aspartate Amino Transferase 16 U/L (0-34); BUN/Creatinine Ratio 27 Ratio (12-20); Blood Urea Nitrogen 24 mg/dL (9-23); Calcium 9.5 mg/dL (8.3-10.6); Calcium (Corrected) 9.5 mg/dL (8.5-10.1); Carbon Dioxide 24.2 mMol/L (20.0-31.0); Chloride 107 mMol/L (98-107); Creatinine (Component) 0.9 mg/dL (0.6-1.3); Estimated Creatinine Clearance 41.4 mL/min (>60); Glucose 109 mg/dL (74-106); Magnesium 1.9 mg/dL (1.6-2.6); Osmolality,Calculated 289 (275-295); Phosphorous 2.5 mg/dL (2.4-5.1); Sodium 143 mMol/L (136-145); Total Protein 6.3 gm/dL (5.7-8.2); eGFR > 60 See Note
[2024-03-24] MEDS: PANTOPRAZOLE INJ 40 MG VIAL IVP (08:29)
[2024-03-24] MEDS: ALBUMIN HUMAN 25% IVPB 25 GM/100 ML BTL IV (08:29)
[2024-03-24] MEDS: SODIUM CHLORIDE 0.9% 1000 ML 1,000 ML 75 ML IV (08:33)
[2024-03-24] MEDS: ACETAMINOPHEN 325 MG TABLET PO (09:14)
--- NOTE | 2024-03-24 11:05 | XR_ITS ---
Examination: CT brain head without contrast. 2-D sagittal coronal reconstructions Date and time of exam:March 24, 2024 1128 hours Comparison December 15, 2018 INDICATIONS: Stroke alert, onset focal neurologic deficits including hallucinations this morning CTDI: vol (mGy):44.8 DLP: (mGycm):890 Technique: Multiple CT axial sections of the brain have been obtained, 5 mm slice thickness. Contrast has not been administered. 2-D sagittal, coronal reconstructions have been obtained Low dose protocols were performed. One or more of the following dose reduction techniques were used; automated exposure control, adjustment of the mA and/or KV according to patient size, use of iterative reconstruction technique. Findings: No significant ventricular enlargement. Intra-axial or extra-axial hemorrhage density is not seen. No mass effect or midline shift Basal cisterns are not remarkable. Fourth ventricle is midline. Cranial vault intact. Impression: Negative for acute hemorrhage, mass effect or midline shift
[2024-03-24 11:29] LABS: Basophils # (Auto) 0.1 Thou/mm3 (0.0-0.2); Basophils % (Auto) 0 % (0-2.5); Eosinophils # (Auto) 0.1 Thou/mm3 (0.0-0.5); Eosinophils % (Auto) 1 % (0-10); Hematocrit 37.4 % (36.0-46.0); Hemoglobin 12.5 g/dL (12.0-16.0); Immature Granulocytes % (Auto) 4 % (0-0); Immature Granulocytes Auto 0.77 Thou/mm3 (0.00-0.00); Lymphocytes # (Auto) 0.8 Thou/mm3 (1.0-4.8); Lymphocytes % (Auto) 4 % (10-50); Mean Corpuscular HGB Conc 33.4 g/dl (31.0-37.0); Mean Corpuscular Hemoglobin 30.6 pg (25.0-35.0); Mean Corpuscular Volume 92 fL (80-100); Monocytes # (Auto) 0.7 Thou/mm3 (0.0-0.8); Monocytes % (Auto) 4 % (0-12); Neutrophils # (Auto) 16.5 Thou/mm3 (1.8-7.7); Neutrophils % (Auto) 87 % (37-80); Nucleated Red Blood Cell % 0 /100 WBC (0); RDW Standard Deviation 47.4 fL (36.4-46.3); Red Blood Count 4.08 Miln/mm3 (4.00-5.20)
[2024-03-24 11:52] LABS: Platelet Count 75 Thou/mm3 (140-440)
--- NOTE | 2024-03-24 12:00 | PD.TNEURO ---
Tele Neuro Consultation Consultation Date 03/24/24 Most Recent Vital Signs Last Vital Signs Temp 98.1 F 03/24/24 08:00 Pulse 78 03/24/24 08:00 Resp 25 H 03/24/24 08:00 BP 150/91 H 03/24/24 08:00 Pulse Ox 98 03/24/24 08:00 O2 Del Method Nasal Cannula 03/24/24 08:00 O2 Flow Rate 1 03/24/24 08:00 Laboratory-Coagulation Panel PT 13.0 Seconds (9.0-12.2) H 03/22/24 09:27 INR 1.2 (0.9-1.3) 03/22/24 09:27 APTT 29.6 Seconds (22.0-36.0) 03/22/24 09:27 Consultation Narrative [facility] Tele[facility] Patient Name:???Elis Herrmann Date of :???1940 Identification Number:??? Date of Service:???03/24/2024 11:07:37 Diagnosis:?R44.1 - Visual hallucinations Impression: ?83 y/o F with HTN, HLD, prior DVT/PE on Eliquis, hypothyroidism, prior hemorrhagic stroke, migraines, currently admitted to hospital for UTI, nephrolithiasis and s/p nephrostomy tube placement, who today began to experience visual hallucinations (seeing red and akash splotches, seeing objects in front of her that are not really there). Neurological examination appears normal. NCHCT did not show acute abnormalities. Given history of prior hemorrhagic stroke, and also with low clinical suspicion for stroke, thrombolytic not recommended, and low suspicion for LVO. ? ?Patient's symptoms could be explained by a variety of etiologies, including metabolic/infectious encephalopathy, migraine phenomena, less likely acute ischemic stroke or seizure. Consider antibiotic side effect as well. ? ?Recommend further work-up including MRI brain w/o contrast to exclude stroke, as well as spot EEG to screen for epileptiform abnormalities. Would also check TSH and ammonia levels. If symptoms worsen despite obvious etiology, consider switching antibiotic. Restart Eliquis when safe from medical standpoint. Our recommendations are outlined below. Recommendations: ? Stroke/Telemetry Floor ? Neuro Checks ? Bedside Swallow Eval ? DVT Prophylaxis ? IV Fluids, Normal Saline ? Head of Bed 30 Degrees ? Euglycemia and Avoid Hyperthermia (PRN Acetaminophen) Sign Out: ? Discussed with Emergency Department Provider Advanced Imaging:Advanced Imaging Deferred because: Stroke not suspected with clinical presentation and exam Metrics: Last Known Well: Unknown Dispatch Time: 03/24/2024 11:07:37 Initial Response Time: 03/24/2024 11:16:40Symptoms: hallucinations. Initial patient interaction: 03/24/2024 11:18:46 NIHSS Assessment Completed: 03/24/2024 11:30:00Patient is not a candidate for Thrombolytic. Thrombolytic Medical Decision: 03/24/2024 11:36:00Patient was not deemed candidate for Thrombolytic because of following reasons: History of previous intracranial hemorrhage, intracranial neoplasm . other diagnosis suspected visual hallucinations, possibly from encephalopathy. I personally Reviewed the CT Head and it Showed no acute intracranial abnormalities Primary Provider Notified of Diagnostic Impression and Management Plan on: 03/24/2024 11:45:00 Spoke With: Dr. Esparza over camera Able to Reach 03/24/2024 11:45:00 History of Present Illness:Patient is a 83 year old Female. Inpatient stroke alert was called for symptoms of hallucinations. Patient is able to provide history, also obtained history by Dr. Esparza, on-call resident, as well as chart review. Patient is currently admitted to hospital with UTI, nephrolithiasis and s/p nephrostomy tube placement yesterday. Today, she began to experience hallucinations. Specifically, reports seeing splotches of red and akash colors at times while looking around, and when she closes her eyes. Other times, she will see objects moving around her, and will see objects in front of her that are not really there. Given this neurological change, stroke alert activated. At one point, her HR went down into the 30's apparently. She reports similar symptoms in the past, around 5 years ago, at which time she was diagnosed with hemorrhagic stroke. ? Past Medical History: ?Hypertension ?Hyperlipidemia ?Stroke ?Migraine Headaches Other PMH:? prior hemorrhagic stroke; prior DVT/PE on Eliquis; hypothyroidism Medications: Anticoagulant use:??Yes?Eliquis, has been on hold No Antiplatelet use Reviewed EMR for current medications Allergies:? Reviewed Social History: Smoking: No Alcohol Use: No Drug Use: No Family History: There is no family history of premature cerebrovascular disease pertinent to this consultation ROS : 14 Points Review of Systems was performed and was negative except mentioned in HPI. Past Surgical History: There Is No Surgical History Contributory To Today?s Visit ? Examination: BP(150/91),?Pulse(78), 1A: Level of Consciousness - Alert; keenly responsive?+ 0 1B: Ask Month and Age - Both Questions Right?+ 0 1C: Blink Eyes & Squeeze Hands - Performs Both Tasks?+ 0 2: Test Horizontal Extraocular Movements - Normal?+ 0 3: Test Visual Pardo - No Visual Loss?+ 0 4: Test Facial Palsy (Use Grimace if Obtunded) - Normal symmetry?+ 0 5A: Test Left Arm Motor Drift - No Drift for 10 Seconds?+ 0 5B: Test Right Arm Motor Drift - No Drift for 10 Seconds?+ 0 6A: Test Left Leg Motor Drift - No Drift for 5 Seconds?+ 0 6B: Test Right Leg Motor Drift - No Drift for 5 Seconds?+ 0 7: Test Limb Ataxia (FNF/Heel-Jamison) - No Ataxia?+ 0 8: Test Sensation - Normal; No sensory loss?+ 0 9: Test Language/Aphasia - Normal; No aphasia?+ 0 10: Test Dysarthria - Normal?+ 0 11: Test Extinction/Inattention - No abnormality?+ 0 NIHSS Score:?0 Pre-Morbid Modified Pinson Scale:0 Points = No symptoms at all Spoke with :?Dr. Esparza over camera This consult was conducted in real time using interactive audio and video technology. Patient was informed of the technology being used for this visit and agreed to proceed. Patient located in hospital and provider located at home/office setting. Patient is being evaluated for possible acute neurologic impairment and high probability of imminent or life-threatening deterioration. I spent total of 46 minutes providing care to this patient, including time for face to face visit via telemedicine, review of medical records, imaging studies and discussion of findings with providers, the patient and/or family. Dr Giles Hernández [facility] For Inpatient follow-up with [facility] physician please call [facility] at . As we are not an outpatient service for any post hospital discharge needs please contact the hospital for assistance. If you have any questions for the [facility] physicians or need to reconsult for clinical or diagnostic changes please contact us via [facility] at . ?
--- NOTE | 2024-03-24 12:12 | PD.RESEVENT ---
Documentation for date of: 03/24/24 Event Note Event Note: Rapid response called at approximately 10:45 AM as patient reported to family member that she was hallucinating. Upon arrival, vital signs were BP 185/97, HR 72, RR 24, and O2 96% on 2 L NC. NIHSS 0 and patient was aware that what she was seeing was not there. Given that she has a prior history of hemorrhagic stroke and states that she had similar symptoms from that time, stroke alert was called and teleneurology was consulted. Exam was benign for them as well and noncontrast CT head did not show any acute abnormalities. Thrombolytics contraindicated given history of hemorrhagic stroke and low suspicion of LVO. Teleneurology recommended MRI brain without contrast and spot EEG to screen for epileptiform abnormalities. Also recommends obtainiung TSH and ammonia levels. Further recommendations outlined in note. After coming back from imaging, patient states her hallucinations had subsided and repeat vitals stable other than BP 168/71 and asked if daughter could bring list of home medications as no antihypertensives listed on external history. Stat labs did not show any significant changes from AM labs. Zosyn will be switched to ceftriaxone as zosyn can cause visual hallucinations. patient seen and examined with resident physician Dr. Umana. Note reviewed, agree with findings and recommendations.
[2024-03-24 12:15] LABS: Alanine Aminotransferase 16 U/L (10-49); Albumin, Serum 4.1 gm/dL (3.4-4.8); Alkaline Phosphatase 71 U/L (46-116); Anion Gap 8 (7-16); Aspartate Amino Transferase 21 U/L (0-34); BUN/Creatinine Ratio 20 Ratio (12-20); Bilirubin,Total 1.1 mg/dL (0.3-1.2); Blood Urea Nitrogen 20 mg/dL (9-23); Calcium 9.3 mg/dL (8.3-10.6); Calcium (Corrected) 9.3 mg/dL (8.5-10.1); Carbon Dioxide 26.2 mMol/L (20.0-31.0); Chloride 109 mMol/L (98-107); Estimated Creatinine Clearance 37.2 mL/min (>60); Globulin 2.1 gm/dL (2.3-3.5); Glucose 102 mg/dL (74-106); Magnesium 1.9 mg/dL (1.6-2.6); Osmolality,Calculated 287 (275-295); Phosphorous 2.3 mg/dL (2.4-5.1); Potassium 4.4 mMol/L (3.4-5.1); Sodium 143 mMol/L (136-145); Total Protein 6.2 gm/dL (5.7-8.2); eGFR 56 See Note
[2024-03-24 12:17] LABS: Troponin I 0.191 ng/mL (0.0-0.045)
[2024-03-24 12:28] LABS: Slide Review Platelets confirmed
--- NOTE | 2024-03-24 14:16 | ESPR_ITS ---
Documentation for date of: 03/24/24 Subjective Subjective Interval history: Summary:An 83-year-old female patient known case of hypertension, dyslipidemia, hypothyroidism, stroke, DVTs on Eliquis, presented to the ED due to abdominal pain started 3 days before admission. The pain started in the right side and it moved to the right loin and to the back. Patient was admitted for treatment of sepsis secondary to UTI 03/23/2024, patient was seen and examined at bedside. Patient denied any new symptoms she reported significant improvement since admission. She mentions that she feels that she wants to urinate. She urinated 450 mL of dark red urine offensive and other. Today patient was complaining of mild epigastric burning sensation. She reported the pain increased when laying flat. I mentioned to the patient that her chest pain at this time most likely is epigastric in nature, however we will repeat her EKG today to see if there is any ischemic changes. Her blood pressure on the soft side we will cautiously evaluate the patient if she needs nitroglycerin sublingual. With started the patient on sucralfate suspension x 1, pantoprazole [address] Del Rosario came and saw the patient talk to the nurse staff mentioned that the patient will need to follow- up in outpatient settings after 1 week. No need for Galaviz's catheter at this time per Dr. Del Rosario. Her blood culture grew out GNR and preliminary report, will wait for the final results. Her blood pressure still a little bit on the soft side 92/63, heart rate is 73. Will give the patient 1 bolus of IV fluids and continue half maintenance 75 mL of fluids in addition to her diet and will reassess. Her lactic acid down trended from 3.5-1.9, troponin peaked at 0.395 and started to downtrend for that reason we will hold on trending troponins at this time. Patient mentions that she has been taking nitroglycerin as needed that was prescribed to her by Dr. Vela for her chest discomfort. 03/24/2024, patient was seen examined at bedside. She denied any new symptoms except she has not had bowel movement for the past 2 days. This morning a rapid response was called with the patient developed visual hallucination seeing green spots on wrists she spots and the wall, however she is conscious and oriented x 3. Stroke alert was called CT scan was done and it was negative for any hemorrhage or mass effect,However because there was no focal neurological deficit and the patient mentions that the symptoms happens whenever she does not use her glasses. For that reason, we will not pursue any further workup for stroke. We spoke with the urologist Dr. Del Rosario he recommended the patient to be discharged with a nephrostomy and to follow-up in outpatient settings after 2 weeks to do removal of kidney stones surgically. At this time her nephrostomy bag seems to be clearing from her bloody urine. For that reason we will resume her Eliquis today. Regarding her sepsis and culture urine culture was positive for GNR, preliminary blood culture was only positive in 1 bottle for GNR however still pending final lab results. Objectively her vitals 168/71 blood pressure, saturating well 98% on 4 L of oxygen for that reason DC'd her oxygen. Exam Vital Signs Temp Pulse Resp BP Pulse Ox O2 Del Method O2 Flow Rate 98.2 F 83 17 168/71 H 91 L Nasal Cannula 2 03/24/24 12:00 03/24/24 12:00 03/24/24 12:00 03/24/24 12:00 03/24/24 12:00 03/24/24 12:00 03/24/24 12:00 Objective Labs 03/24/24 11:18 03/24/24 11:18 Labs: Laboratory Results - last 24 hr 03/24/24 03/24/24 03/24/24 05:00 05:22 11:18 WBC 18.1 H 19.0 H RBC 4.18 4.08 Hgb 12.7 12.5 Hct 38.6 37.4 MCV 92 92 MCH 30.4 30.6 MCHC 32.9 33.4 RDW Std Deviation 48.1 H 47.4 H Plt Count 64 L 75 L Neut % (Auto) 81 H 87 H Lymph % (Auto) 3 L 4 L [place] % (Auto) 4 4 Eos % (Auto) 1 1 Baso % (Auto) 0 0 Neut # (Auto) 14.6 H 16.5 H Lymph # (Auto) 0.6 L 0.8 L [place] # (Auto) 0.8 0.7 Eos # (Auto) 0.1 0.1 Baso # (Auto) 0.1 0.1 Immature Gran # (Auto) 1.90 H 0.77 H Absolute Nucleated RBC 0.00 0.00 Immature Gran % 11 H 4 H Nucleated RBC % 0 0 Sodium 143 143 Potassium 4.0 D 4.4 Chloride 107 109 H Carbon Dioxide 24.2 26.2 Anion Gap 12 8 BUN 24 H 20 Creatinine 0.9 1.0 Estim Creat Clear Calc 41.4 L 37.2 L eGFR > 60 56 L BUN/Creatinine Ratio 27 H 20 Glucose 109 H 102 Calculated Osmolality 289 287 Calcium 9.5 9.3 Corrected Calcium 9.5 9.3 Phosphorus 2.5 2.3 L Magnesium 1.9 1.9 Total Bilirubin 1.0 1.1 AST 16 21 ALT 17 16 Alkaline Phosphatase 71 D 71 Troponin I 0.191 H* Total Protein 6.3 6.2 Albumin 4.3 D 4.1 Globulin 2.0 L 2.1 L Albumin/Globulin Ratio 2.2 2.0 Misc Test Result Platelets confirmed Platelets confirmed Quality Measures Quality Measures sepsis Current suspected stage: sepsis Possible source: genitourinary Blood cultures ordered: completed in ED Antibiotic ordered: Yes Advance care planning discussed with:: patient Assessment & Plan Assessment Current Active Medications: Generic Name Dose Route Start Last Admin Trade Name Freq PRN Reason Stop Dose Admin Acetaminophen 325 mg 03/23/24 15:11 03/24/24 09:14 Acetaminophen 325 Mg Tablet PO 04/22/24 15:10 325 mg Q6HR PRN Administration Fever >101 or mild pain 1-3 Apixaban 5 mg 03/24/24 21:00 Apixaban 2.5 Mg Tablet PO 04/14/24 20:59 [facility] Docusate Sodium 100 mg 03/24/24 14:15 Docusate Sod 100 Mg Capsule PO 04/23/24 14:14 [facility]DAY [facility] Protocol Fentanyl Citrate 30 mcg 03/22/24 16:09 Fentanyl Cit Inj 50 Mcg/Ml Amp 2ml IVP 03/27/24 16:08 Q4H PRN severe 8-10 Piperacillin/Tazobactam/Dextrose 50 mls @ 12.5 mls/hr 03/22/24 22:00 03/24/24 05:40 Zosyn IV 03/29/24 21:59 12.5 mls/hr Q8HR CHRIS Administration Albumin Human 25 gm in 100 mls @ 100 mls/hr 03/22/24 22:45 03/24/24 08:29 Albuminar-25 Ivpb IV 03/24/24 22:44 100 mls/hr BID CHRIS Administration Levothyroxine Sodium 50 mcg 03/23/24 06:00 03/24/24 05:41 Levothyroxine Sodium 25 Mcg Tablet PO 04/22/24 05:59 50 mcg ACBR CHRIS Administration Ondansetron HCl 4 mg 03/22/24 15:43 03/22/24 16:11 Ondansetron Inj 2 Mg/Ml Inj 2 Ml IV 04/21/24 15:42 4 mg Q6H PRN Administration NAUSEA OR VOMITING Protocol Pantoprazole Sodium 40 mg 03/24/24 09:00 03/24/24 08:29 Pantoprazole Inj 40 Mg Vial IVP 04/23/24 08:59 40 mg QDAY CHRIS Administration Plan Summary:An 83-year-old female patient known case of hypertension, dyslipidemia, hypothyroidism, stroke, DVTs on Eliquis, presented to the ED due to abdominal pain started 3 days before admission. The pain started in the right side and it moved to the right loin and to the back. Patient was admitted for treatment of sepsis secondary to UTI Assessment and plan #Stroke rule out ( less likely ) #Visual hallucination stroke versus Zosyn side effect #History of hemorrhagic stroke 5 years ago This note patient started to experience visual hallucination red spots. No other focal neurological deficits Consultation to the neurologist was done, does not believe that the patient has stroke. CT scan was done for the brain and was negative for any hemorrhage or mass effect Plan ? Neurochecks every 4 hours, HOB more than 30 degree all-time ? provide the patient with her glasses. ? Neurology consultation was ordered, recommendations appreciated ? Switch Zosyn to ceftriaxone #Sepsis secondary to UTI #Pyelonephritis of the right side #Right kidney stone obstructive status post nephrostomy Patient presented with right-sided acute abdominal pain associated with fever and chills, WBC increased to 11, pulse rate was 119, she reported fever in which she used Tylenol at home. Urine analysis showed high level of WBCs CT scan showed obstructive hydronephrosis of the right kidney. Nephrostomy bag is clearing at this time still pinkish in color. No blockage was noticed Plan ? Admit patient to telemetry ?Switch Zosyn IV ceftriaxone 03/21?03/24- ? Tylenol for fever as needed ? Follow-up on the culture and urine culture results ? Nephrostomy care daily ? Consultation to the to the urologist Dr. Del Rosario was sent, pending recommendations # Elevated troponin-doubt Non-STEMI type II most likely myocardial strain #Questionable history of angina Patient denied any chest pain, denied any shortness of breath, denied any previous episodes of heart attacks. Troponin was noticed to be mildly elevated 0.365. EKG was nonsignificant . Only showed old right bundle branch block with no signs of ischemic changes. Patient reported that she has been taking nitroglycerin as needed that was prescribed by her software security consultant Dr. Cerrato for her chest pain Troponin today started to downtrend from 0.395-0.2 Plan ? Stop trending troponins ? Will consider consulting software security consultant after significant increase of serum troponin or chest pain. 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 Nephrostomy was done yesterday and it is draining bloody urine, Galaviz's catheter also draining bloody urine. Plan ? Resume Eliquis 5 mg twice daily #GERD Plan ? Protonix 40 mg IV daily ? Sucralfate x 1 suspension. #History of hypothyroidism Plan ? Resume home medication levothyroxine 50 mcg/day #History of hypertension On presentation patient blood pressure was on the soft side Plan ? Patient blood pressure at this time is labile for that reason we will continue to monitor closely #History of dyslipidemia Plan ? Will hold home medications at this time Hospital Maintenance: FEN: Regular diet DVT ppx: SCDs, Eliquis GI ppx: Protonix IV lines: PIV Galaviz: None Code status: Full code Dispo: Telemetry - Patient's plan and care discussed with my attending, Dr. Aileen Orona MD Internal Medicine PGY-2 Attending Provider Attestation/Addendum Patient seen and examined with resident physician Dr. Umana. Note reviewed, agree with findings and recommendations. After we saw the patient this morning she had an episode of visual hallucinations. However when I went back and saw her and after patient stated it is because of her glasses which are bifocals and she felt the lines moving. Neurological exam completely normal. CT brain negative. Will resume her Eliquis. Plan for discharge tomorrow on antibiotics and a nephrostomy tube. She is going to be coming back to the hospital for lithotripsy and stent placed April [address] Saldaña.
[2024-03-24] MEDS: cefTRIAXone/D5w 1gm IV premix 50 ML IV (15:25)
[2024-03-24] MEDS: DOCUSATE SOD 100 MG CAPSULE PO (15:25)
--- NOTE | 2024-03-24 15:46 | PC.NURSE ---
1040 DAUGHTER TARA CALLED WANTING TO SPEAK TO THE NURSE. WENT TO ROOM AND TARA WALKED ME OUT TO HALLWAY. STATES HER MOTHER JUST TOLD HER SEE IS HALLUCINATING. SHE ALSO SAID THE LAST TIME SHE FELT THIS WAY SHE WAS DX WITH A HEMORRHAGE. CHECKED PATIENT. ANSWERS QUESTIONS APPROPRIATELY BUT DOES SAY SHE IS HAVING HALUCINATIONS. V/S TAKEN B/P ELEVATED 185/97, HEART MONITOR SHOWED HR WENT DOWN INTO THE 30'S AND THEN SLOWLY WENT UP TO THE 60'S. RAIPID RESPONSE CALLED FOR POSSIBLE STROKE. BANDAR CHARGE NURSE FIRST TO ARRIVED AND INFORMED OF WHY RAPID WAS CALLED. DR BARRIOS ARRIVED WELL DR BRAGG AND DR BUSTILLO. PATIENT WAS ASKED SEVERAL QUESTIONS AND STROKE EVAL INITIATED. B/P WAS TAKEN DURING THE EVENT AND SLOWLY WENT DOWN, 155/92, HR REMAINED STEADY IN THE 70'S.
[2024-03-24 17:41] LABS: Ammonia 18 uMol/L (11-32)
[2024-03-24] MEDS: APIXABAN 2.5 MG TABLET 5 MG PO (20:49)
--- NOTE | 2024-03-24 21:00 | PC.NURSE ---
notified Dr. Gallagher of patients bp on high side and c/o swelling to fingers, ok to hold albumin tonight
[2024-03-25] VITALS (11 sets, daily range): BP systolic 124–187; BP diastolic 71–99; PULSE 66–101; RESP 19–28; TEMP 36.2–36.6; O2SAT 93–98; BMI 31.6
[2024-03-25] MEDS: ACETAMINOPHEN 325 MG TABLET PO (01:54)
[2024-03-25] MEDS: fentaNYL CIT INJ 50 mCg/ML AMP 2ML 30 MCG IVP ×2 (02:02→10:01)
[2024-03-25] MEDS: LEVOTHYROXINE SODIUM 25 MCG TABLET 50 MCG PO (05:35)
[2024-03-25 06:09] LABS: Basophils # (Auto) 0.1 Thou/mm3 (0.0-0.2); Basophils % (Auto) 1 % (0-2.5); Eosinophils # (Auto) 0.2 Thou/mm3 (0.0-0.5); Eosinophils % (Auto) 1 % (0-10); Hematocrit 39.1 % (36.0-46.0); Hemoglobin 13.2 g/dL (12.0-16.0); Immature Granulocytes % (Auto) 0 % (0-0); Immature Granulocytes Auto 0.06 Thou/mm3 (0.00-0.00); Lymphocytes % (Auto) 6 % (10-50); Mean Corpuscular HGB Conc 33.8 g/dl (31.0-37.0); Mean Corpuscular Hemoglobin 30.5 pg (25.0-35.0); Mean Corpuscular Volume 90 fL (80-100); Monocytes # (Auto) 0.6 Thou/mm3 (0.0-0.8); Monocytes % (Auto) 3 % (0-12); Neutrophils # (Auto) 15.1 Thou/mm3 (1.8-7.7); Neutrophils % (Auto) 89 % (37-80); Nucleated Red Blood Cell % 0 /100 WBC (0); RDW Standard Deviation 45.5 fL (36.4-46.3); Red Blood Count 4.33 Miln/mm3 (4.00-5.20)
[2024-03-25 06:10] LABS: Platelet Count 74 Thou/mm3 (140-440)
[2024-03-25 06:11] LABS: Slide Review Platelets confirmed
--- NOTE | 2024-03-25 06:30 | PC.NURSE ---
nephrostomy tube output for my shift was 50ml
[2024-03-25 06:37] LABS: Alanine Aminotransferase 15 U/L (10-49); Albumin, Serum 4.3 gm/dL (3.4-4.8); Albumin/Globulin Ratio 2.2 (1.2-2.2); Alkaline Phosphatase 91 U/L (46-116); Anion Gap 10 (7-16); Aspartate Amino Transferase 18 U/L (0-34); BUN/Creatinine Ratio 26 Ratio (12-20); Bilirubin,Total 1.4 mg/dL (0.3-1.2); Blood Urea Nitrogen 18 mg/dL (9-23); Calcium 9.6 mg/dL (8.3-10.6); Calcium (Corrected) 9.6 mg/dL (8.5-10.1); Carbon Dioxide 25.8 mMol/L (20.0-31.0); Chloride 107 mMol/L (98-107); Creatinine (Component) 0.7 mg/dL (0.6-1.3); Estimated Creatinine Clearance 53.2 mL/min (>60); Glucose 86 mg/dL (74-106); Magnesium 1.8 mg/dL (1.6-2.6); Osmolality,Calculated 285 (275-295); Phosphorous 2.1 mg/dL (2.4-5.1); Potassium 3.8 mMol/L (3.4-5.1); Sodium 143 mMol/L (136-145); Total Protein 6.3 gm/dL (5.7-8.2); eGFR > 60 See Note
[2024-03-25] MEDS: APIXABAN 2.5 MG TABLET 5 MG PO ×2 (08:30→20:56)
[2024-03-25] MEDS: bisacodyL 5 MG TABEC 10 MG PO (08:30)
[2024-03-25] MEDS: cefTRIAXone/D5w 1gm IV premix 50 ML IV (08:30)
[2024-03-25] MEDS: DOCUSATE SOD 100 MG CAPSULE PO (08:30)
[2024-03-25] MEDS: PANTOPRAZOLE INJ 40 MG VIAL IVP (08:30)
--- NOTE | 2024-03-25 09:44 | PD.RESDS ---
Planned Discharge Date 03/25/24 DS: Providers Provider Date of admission: 03/22/24 15:43 Primary care physician: Vitaly Gallagher MD Admitting Provider: Vitaly Gallagher MD Attending Provider on Admission: Vitaly Gallagher MD Consults: 03/22/24 20:23 Consult to Urology Urgent Comment: Right-sided kidney stones, status post nephrostomy Consulting Provider: Puja Del Rosario 03/23/24 01:22 Referral Registered Dietitian Routine Comment: 03/24/24 14:14 Referral Physical Therapy Routine Comment: Physician Instructions: Attending Provider on DC: Dong Orona MD Discharging Provider: Dong Orona MD Hospital Course Hospital Course Hospital course: Summary:An 83-year-old female patient known case of hypertension, dyslipidemia, hypothyroidism, stroke, DVTs on Eliquis, presented to the ED due to abdominal pain started 3 days before admission. The pain started in the right side and it moved to the right loin and to the back. Patient was admitted for treatment of sepsis secondary to UTI 03/23/2024, patient was seen and examined at bedside. Patient denied any new symptoms she reported significant improvement since admission. She mentions that she feels that she wants to urinate. She urinated 450 mL of dark red urine offensive and other. Today patient was complaining of mild epigastric burning sensation. She reported the pain increased when laying flat. I mentioned to the patient that her chest pain at this time most likely is epigastric in nature, however we will repeat her EKG today to see if there is any ischemic changes. Her blood pressure on the soft side we will cautiously evaluate the patient if she needs nitroglycerin sublingual. With started the patient on sucralfate suspension x 1, pantoprazole [address] Del Rosario came and saw the patient talk to the nurse staff mentioned that the patient will need to follow-up in outpatient settings after 1 week. No need for Galaviz's catheter at this time per Dr. Del Rosario. Her blood culture grew out GNR and preliminary report, will wait for the final results. Her blood pressure still a little bit on the soft side 92/63, heart rate is 73. Will give the patient 1 bolus of IV fluids and continue half maintenance 75 mL of fluids in addition to her diet and will reassess. Her lactic acid down trended from 3.5-1.9, troponin peaked at 0.395 and started to downtrend for that reason we will hold on trending troponins at this time. Patient mentions that she has been taking nitroglycerin as needed that was prescribed to her by Dr. Vela for her chest discomfort. 03/24/2024, patient was seen examined at bedside. She denied any new symptoms except she has not had bowel movement for the past 2 days. This morning a rapid response was called with the patient developed visual hallucination seeing green spots on wrists she spots and the wall, however she is conscious and oriented x 3. Stroke alert was called CT scan was done and it was negative for any hemorrhage or mass effect,However because there was no focal neurological deficit and the patient mentions that the symptoms happens whenever she does not use her glasses. For that reason, we will not pursue any further workup for stroke. We spoke with the urologist Dr. Del Rosario he recommended the patient to be discharged with a nephrostomy and to follow-up in outpatient settings after 2 weeks to do removal of kidney stones surgically. At this time her nephrostomy bag seems to be clearing from her bloody urine. For that reason we will resume her Eliquis today. Regarding her sepsis and culture urine culture was positive for GNR, preliminary blood culture was only positive in 1 bottle for GNR however still pending final lab results. Objectively her vitals 168/71 blood pressure, saturating well 98% on 4 L of oxygen for that reason DC'd her oxygen. Time Spent with Patient Time attestation: Total time spent providing and/or coordinating discharge services: Exam Vital Signs Temp Pulse Resp BP Pulse Ox O2 Del Method O2 Flow Rate 97.9 F 77 24 H 176/90 H 93 L Nasal Cannula 1 03/25/24 08:00 03/25/24 08:00 03/25/24 08:00 03/25/24 08:00 03/25/24 08:00 03/25/24 08:00 03/25/24 08:00 Discharge Plan Plan Patient Disposition: HOME (Self Care) Disposition Comment: Dr. Gallagher admitting Patient condition on transfer: Stable and Benefits outweigh risks Prescriptions/Referrals Prescriptions/Med Rec: New amoxicillin-pot clavulanate 875-125 mg tablet 1 tab PO BID 10 Days Qty: 20 0RF apixaban 5 mg tablet 5 mg PO BID 30 Days Qty: 60 0RF Continued levothyroxine 50 mcg tablet 50 mcg PO QAM Patient Comments: TAKE 1 TABLET BY MOUTH EVERY DAY atorvastatin 10 mg tablet 10 mg PO QDAY Patient Comments: TAKE 1 TABLET BY MOUTH EVERY DAY amlodipine 5 mg tablet 5 mg PO QDAY Patient Comments: TAKE 1 TABLET BY MOUTH EVERY DAY atenolol 50 mg tablet 50 mg PO QDAY Patient Comments: TAKE 1 TABLET BY MOUTH EVERY DAY Discontinued warfarin 5 mg Tablet 5 mg PO QDAY@1200 Qty: 30 0RF Referrals: Vitaly Gallagher MD [Primary Care Provider] - Patient/Caregiver Discharge Instructions Discharge Activity: activity as tolerated Education Materials: Low-Salt Choices, Kidney Stones Surg, Sepsis Print Language: Bengali Activity Restrictions/Additional Instructions: Follow-up with Dr. Saldaña in 1 week Follow-up with Dr. Gallagher in 1 week In case of an emergency or worsening of your symptoms please return to the ED as soon as possible If you notice any bleeding signs, or bleeding into the urostomy bag please return to the ED as soon as possible Stand Alone Forms: Josi Award Info., Patient Portal Info Letter
[2024-03-25] MEDS: NIFEdipine XL 30 MG TABCR PO (09:50)
--- NOTE | 2024-03-25 09:58 | XR_ITS ---
Examination: Abdomen AP single view Technique: AP portable supine abdomen, single view Exam date and time: March 25, 2024 1009 hours INDICATIONS: Worsening abdominal pain this week FINDINGS: Mild to moderate air and stool throughout the colon Right percutaneous nephrostomy tube No free air Small bowel mild ileus Severe osteopenia IMPRESSION: Mild small bowel ileus
--- NOTE | 2024-03-25 11:04 | UCCONSULT_ITS ---
RE: ZENIA DIAZ : 1940 DATE OF CONSULTATION: 03/23/[address] Gallagher. CHIEF COMPLAINT: Flank pain of several days duration associated with nausea and vomiting. No fever. Status post placement of percutaneous nephrostomy, right because of 8 mm stone in the proximal ureter, left side. ESTABLISHED DIAGNOSES: 1. Hypertension. 2. Dyslipidemia. 3. Hypothyroidism. 4. Status post CVA, DVT on Eliquis. HISTORY OF PRESENT ILLNESS: This is an 83-year-old female. She is admitted in the hospital of the emergency room. This patient has a history of left flank pain for several days' duration. In the past, the patient has a history of stone disease. She passed nine years ago. She has a history of recurrent urinary tract infection. This time, she came to the emergency room with severe pain 10/10 with nausea, vomiting, and gross hematuria. VARIOUS MEDICATIONS: 1. Amlodipine. 2. Atorvastatin. 3. Levothyroxine. 4. Eliquis. Past medical history, family history, review of the system, personal history, please refer to the patient history form dated 03/22/2024, it is in HPI, in EMR. PHYSICAL EXAMINATION: General: Condition is satisfactory. Orientation x3. HEENT: Normocephalic and atraumatic. Eyes, no anemia or jaundice. Neck: Supple. Trachea is central. Thyroid is not enlarged. Extremities: Reveal no edema, cyanosis or clubbing. Vital Signs: Stable. They are in HPI, in EMR. Chest: Symmetrical. Heart: Regular rate and rhythm. Abdomen: Soft, nontender. No masses. Liver, spleen, kidney not palpable. No CVA tenderness. She is status post placement of right percutaneous nephrostomy. Various labs done in the emergency room. WBC is 11.0. Hemoglobin is 15.1. Hematocrit is 45.9. Serum sodium 141, potassium 3.1, serum creatinine 1.5, and BUN is 25. Urine cultures are not back. She had a CAT scan of the abdomen and pelvis done. It is reviewed by me. This revealed hydronephrosis right side with 8 mm stone proximal ureter. In the emergency room, the patient was found to be septic with blood pressure of 91/62, pulse of 116, respiratory rate of 18, temperature of 97.9 and she had low platelet 85,000 and INR was 1.1. The patient received 2 liters of bolus IV fluids in the emergency room. Right nephrostomy tube is draining. They drained 170 mL of urine last night and there is about 50 to 60 mL right now in the bag. It is bloody as a result of the patient being on Eliquis. She had a bladder scan done. She had 400 mL of urine in the bladder. She voided 225 mL. IMPRESSION: 1. An 8 mm stone right proximal ureter with hydronephrosis status post placement of nephrostomy. 2. Sepsis. RECOMMENDATIONS: 1. Push fluids. Continue with the antibiotics. After the patient is stable, she is going to need a cystoscopic examination, retrograde pyelogram, ureteroscopy, and laser stone fragmentation if possible to do that and stone basketing placement of the stent. Sometime if the stone is impacted, it may require two session, one session to put a stent up to dilate the ureter passively and then go back so that ureter can accommodate the scope. All above issues were discussed with the patient in great detail. Questions answered to the patient's satisfaction. The patient verbalized understanding. Dr. Gallagher thank you very kindly for your consultation and letting me participate in the care of this patient. If you have any questions, feel free to give me a call at your convenience. Past medical history, family history, and review of the system. Personal history: Please refer to patient history form dated 03/22/2024. He is in HPI in EMR. cc: Vitaly Gallagher MD DT: 10:52:57 TT: 16:44:00 Ref: [id number] - TID: [id number]
--- NOTE | 2024-03-25 11:09 | XR_ITS ---
Examination: CT abdomen without intravenous contrast. Coronal 2-D reconstructions. Sagittal 2-D reconstructions. Date and time of exam:March 25, 2024 1335 hrs. Indications: Right flank pain beginning 3 days ago, clinical diagnosis kidney stones, CT study March 22, 2024 right hydronephrosis secondary to 8 mm proximal right ureteral calculus CTDI: vol (mGy): 10.9 DLP: (mGycm): 384 Technique: Axial images of the abdomen have been obtained, 3 mm slice thickness, without intravenous contrast 2-D sagittal coronal reconstructions Low dose protocols were performed. One or more of the following dose reduction techniques were used; automated exposure control, adjustment of the mA and/or KV according to patient size, use of iterative reconstruction technique. Findings: Mild left pleural disease Mild right pleural disease Pneumonia versus atelectasis at the lung bases 6 mm low-density lesion left lobe of the liver No biliary tract dilatation Gallbladder wall on this study appears thickened No pancreatic or adrenal mass Right percutaneous nephrostomy tube satisfactory position with mild right hydronephrosis Mild left hydronephrosis Aorta normal size Mild colonic ileus Impression: Pneumonia versus atelectasis at the lung bases Recommend hepatic sonography to assess small low-density lesion left lobe of the liver Gallbladder wall on this study appears thickened, recommend hepatobiliary sonography follow-up Right percutaneous nephrostomy tube satisfactory position, mild right hydronephrosis
[2024-03-25] MEDS: LABETALOL INJ 5 MG/ML VIAL 20 ML 10 MG IVP (11:21)
--- NOTE | 2024-03-25 14:21 | PD.RESPRO ---
Documentation for date of: 03/25/24 Subjective Subjective Interval history: Summary:An 83-year-old female patient known case of hypertension, dyslipidemia, hypothyroidism, stroke, DVTs on Eliquis, presented to the ED due to abdominal pain started 3 days before admission. The pain started in the right side and it moved to the right loin and to the back. Patient was admitted for treatment of sepsis secondary to UTI 03/23/2024, patient was seen and examined at bedside. Patient denied any new symptoms she reported significant improvement since admission. She mentions that she feels that she wants to urinate. She urinated 450 mL of dark red urine offensive and other. Today patient was complaining of mild epigastric burning sensation. She reported the pain increased when laying flat. I mentioned to the patient that her chest pain at this time most likely is epigastric in nature, however we will repeat her EKG today to see if there is any ischemic changes. Her blood pressure on the soft side we will cautiously evaluate the patient if she needs nitroglycerin sublingual. With started the patient on sucralfate suspension x 1, pantoprazole [address] Del Rosario came and saw the patient talk to the nurse staff mentioned that the patient will need to follow-up in outpatient settings after 1 week. No need for Galaviz's catheter at this time per Dr. Del Rosario. Her blood culture grew out GNR and preliminary report, will wait for the final results. Her blood pressure still a little bit on the soft side 92/63, heart rate is 73. Will give the patient 1 bolus of IV fluids and continue half maintenance 75 mL of fluids in addition to her diet and will reassess. Her lactic acid down trended from 3.5-1.9, troponin peaked at 0.395 and started to downtrend for that reason we will hold on trending troponins at this time. Patient mentions that she has been taking nitroglycerin as needed that was prescribed to her by Dr. Vela for her chest discomfort. 03/24/2024, patient was seen examined at bedside. She denied any new symptoms except she has not had bowel movement for the past 2 days. This morning a rapid response was called with the patient developed visual hallucination seeing green spots on wrists she spots and the wall, however she is conscious and oriented x 3. Stroke alert was called CT scan was done and it was negative for any hemorrhage or mass effect,However because there was no focal neurological deficit and the patient mentions that the symptoms happens whenever she does not use her glasses. For that reason, we will not pursue any further workup for stroke. We spoke with the urologist Dr. Del Rosario he recommended the patient to be discharged with a nephrostomy and to follow-up in outpatient settings after 2 weeks to do removal of kidney stones surgically. At this time her nephrostomy bag seems to be clearing from her bloody urine. For that reason we will resume her Eliquis today. Regarding her sepsis and culture urine culture was positive for GNR, preliminary blood culture was only positive in 1 bottle for GNR however still pending final lab results. Objectively her vitals 168/71 blood pressure, saturating well 98% on 4 L of oxygen for that reason DC'd her oxygen. 03/25/2024, patient was seen and examined at bedside. She was complaining of significant abdominal pain on the left side associated with constipation. Patient has not passed bowel movement since admission. On evaluation of her nephrostomy bag there was minimal output, the nurse reported 50 mL of clear liquid was drained by the night team. Her vital signs showed high blood pressure of 176/90, patient was given Fleet enema, and abdominal CAT scan was done to rule out any dislodgment of the nephrostomy tube. After the enema patient had a bowel movement in which she reported a significant improvement of her pain. Her lab showed downtrending WBCs from 19-17 today, hemoglobin stable at 13, other labs within normal limit except total bilirubin which mildly increased to 1.4 today from 1 yesterday. Liver enzymes within normal limits. Her urine culture came back positive for Klebsiella pneumonia also her blood culture came back positive for Klebsiella pneumonia pansensitive. At this time patient is on ceftriaxone. If CT scan came back normal anticipated discharge the patient tomorrow on antibiotics Augmentin to continue treatment for 14 days with antibiotics and to follow-up with Dr. Del Rosario in outpatient settings. Exam Vital Signs Temp Pulse Resp BP Pulse Ox O2 Del Method O2 Flow Rate 97.9 F 70 24 H 181/81 H 93 L Nasal Cannula 1 03/25/24 08:00 03/25/24 12:00 03/25/24 08:00 03/25/24 11:21 03/25/24 08:00 03/25/24 08:00 03/25/24 08:00 Narrative Exam GEN: AOx3, able to speak full sentences HEENT: NC/AC, oral mucosa dry, neck supple CVS: RRR, S1-S2 present, no murmurs appreciated RESP: CTAB GI: soft,non distended, Rt CVA tender Nephrostomy bag was clear, significant tenderness in the right iliac fossa and costovertebral angle area MSK: able to move all 4 limbs, no lower extremity edema SKIN: warm and dry SOFTWARE DEVELOPMENT ADVISOR: CN II-XII and Sensation grossly intact. Objective Labs 03/26/24 04:30 03/26/24 04:30 Labs: Laboratory Results - last 24 hr 03/22/24 03/24/24 03/25/24 09:27 15:58 05:03 WBC 17.0 H RBC 4.33 Hgb 13.2 Hct 39.1 MCV 90 MCH 30.5 MCHC 33.8 RDW Std Deviation 45.5 Plt Count 74 L Neut % (Auto) 89 H Lymph % (Auto) 6 L [place] % (Auto) 3 Eos % (Auto) 1 Baso % (Auto) 1 Neut # (Auto) 15.1 H Lymph # (Auto) 1.0 [place] # (Auto) 0.6 Eos # (Auto) 0.2 Baso # (Auto) 0.1 Immature Gran # (Auto) 0.06 H Absolute Nucleated RBC 0.00 Immature Gran % 0 Nucleated RBC % 0 Sodium 141 143 Potassium 3.3 L 3.8 D Chloride 104 107 Carbon Dioxide 25.6 25.8 Anion Gap 11 10 BUN 25 H 18 Creatinine 1.5 H 0.7 Estim Creat Clear Calc 23.4 L 53.2 L eGFR 35 L > 60 BUN/Creatinine Ratio 17 26 H Glucose 111 H 86 Calculated Osmolality 286 285 Calcium 9.0 9.6 Corrected Calcium 9.2 9.6 Phosphorus 2.1 L Magnesium 1.6 1.8 Total Bilirubin 1.7 H 1.4 H AST 45 H 18 ALT 31 15 Alkaline Phosphatase 100 91 D Ammonia 18 Troponin I 0.375 H* Total Protein 6.0 6.3 Albumin 3.8 4.3 Globulin 2.2 L 2.0 L Albumin/Globulin Ratio 1.7 2.2 Lipase 38 Procalcitonin 75.43 H Misc Test Result Platelets confirmed Quality Measures Quality Measures sepsis Current suspected stage: sepsis Possible source: genitourinary Blood cultures ordered: completed in ED Antibiotic ordered: Yes Advance care planning discussed with:: patient and spouse Assessment & Plan Assessment Current Active Medications: Generic Name Dose Route Start Last Admin Trade Name Freq PRN Reason Stop Dose Admin Acetaminophen 325 mg 03/23/24 15:11 03/25/24 01:54 Acetaminophen 325 Mg Tablet PO 04/22/24 15:10 325 mg Q6HR PRN Administration Fever >101 or mild pain 1-3 Apixaban 5 mg 03/24/24 21:00 03/25/24 08:30 Apixaban 2.5 Mg Tablet PO 04/14/24 20:59 5 mg BID CHRIS Administration Bisacodyl 10 mg 03/25/24 07:27 03/25/24 08:30 Bisacodyl 5 Mg Tabec PO 04/24/24 07:26 10 mg QDAY PRN Administration CONSTIPATION Protocol Docusate Sodium 100 mg 03/24/24 14:15 03/25/24 08:30 Docusate Sod 100 Mg Capsule PO 04/23/24 14:14 100 mg QDAY CHRIS Administration Protocol Fentanyl Citrate 20 mcg 03/25/24 11:38 Fentanyl Cit Inj 50 Mcg/Ml Amp 2ml IVP 03/27/24 16:08 Q4H PRN severe 8-10 Ceftriaxone Sodium/Dextrose 50 mls @ 100 mls/hr 03/24/24 14:25 03/25/24 08:30 Rocephin/D5w 1gm Iv Premix IV 03/31/24 14:24 100 mls/hr QDAY CHRIS Administration Levothyroxine Sodium 50 mcg 03/23/24 06:00 03/25/24 05:35 Levothyroxine Sodium 25 Mcg Tablet PO 04/22/24 05:59 50 mcg ACBR CHRIS Administration Nifedipine 30 mg 03/25/24 09:45 03/25/24 09:50 Nifedipine Xl 30 Mg Tabcr PO 04/24/24 09:44 30 mg QDAY CHRIS Administration Ondansetron HCl 4 mg 03/22/24 15:43 03/22/24 16:11 Ondansetron Inj 2 Mg/Ml Inj 2 Ml IV 04/21/24 15:42 4 mg Q6H PRN Administration NAUSEA OR VOMITING Protocol Pantoprazole Sodium 40 mg 03/24/24 09:00 03/25/24 08:30 Pantoprazole Inj 40 Mg Vial IVP 04/23/24 08:59 40 mg QDAY CHRIS Administration Plan Summary:An 83-year-old female patient known case of hypertension, dyslipidemia, hypothyroidism, stroke, DVTs on Eliquis, presented to the ED due to abdominal pain started 3 days before admission. The pain started in the right side and it moved to the right loin and to the back. Patient was admitted for treatment of sepsis secondary to UTI Assessment and plan #Stroke rule out ( less likely ) #Visual hallucination stroke versus Zosyn side effect #History of hemorrhagic stroke 5 years ago This note patient started to experience visual hallucination red spots. No other focal neurological deficits Consultation to the neurologist was done, does not believe that the patient has stroke. CT scan was done for the brain and was negative for any hemorrhage or mass effect Plan ? Neurochecks every 4 hours, HOB more than 30 degree all-time ? provide the patient with her glasses. ? Neurology consultation was ordered, recommendations appreciated ? Continue ceftriaxone IV #Sepsis secondary to UTI #Pyelonephritis of the right side #Right kidney stone obstructive status post nephrostomy Patient presented with right-sided acute abdominal pain associated with fever and chills, WBC increased to 11, pulse rate was 119, she reported fever in which she used Tylenol at home. Urine analysis showed high level of WBCs CT scan showed obstructive hydronephrosis of the right kidney. Nephrostomy bag seems to be clearing. Urine culture and blood culture all came back positive for Klebsiella pneumonia pansensitive Plan ? Abdominal CT scan today stat. ?Switch Zosyn IV ceftriaxone 03/21?03/24- ? Tylenol for fever as needed ? Nephrostomy care daily ? Consultation to the to the urologist Dr. Del Rosario was sent, pending recommendations # Elevated troponin-doubt Non-STEMI type II most likely myocardial strain #Questionable history of angina Patient denied any chest pain, denied any shortness of breath, denied any previous episodes of heart attacks. Troponin was noticed to be mildly elevated 0.365. EKG was nonsignificant . Only showed old right bundle branch block with no signs of ischemic changes. Patient reported that she has been taking nitroglycerin as needed that was prescribed by her wood and wood products labourer Dr. Cerrato for her chest pain Troponin today started to downtrend from 0.395-0.2 Plan ? Stop trending troponins ? Will consider consulting wood and wood products labourer after significant increase of serum troponin or chest pain. 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 Nephrostomy was done yesterday and it is draining bloody urine, Galaviz's catheter also draining bloody urine. Plan ? Resume Eliquis 5 mg twice daily #GERD Plan ? Protonix 40 mg IV daily ? Sucralfate x 1 suspension. #History of hypothyroidism Plan ? Resume home medication levothyroxine 50 mcg/day #History of hypertension On presentation patient blood pressure was on the soft side Plan ? Patient blood pressure at this time is labile for that reason we will continue to monitor closely #History of dyslipidemia Plan ? Will hold home medications at this time Hospital Maintenance: FEN: Regular diet DVT ppx:Eliquis GI ppx: Protonix IV lines: PIV Galaviz: None Code status: Full code Dispo: Telemetry - Patient's plan and care discussed with my attending, Dr. Aileen Orona MD Internal Medicine PGY-2 Attending Provider Attestation/Addendum Patient seen and examined with resident physician Dr. Umana. Note reviewed, agree with findings and recommendations. Patient has no further hallucinations. Did have some abdominal discomfort. CT abdomen no acute pathology. Neurological exam completely normal. CT brain negative. Will resume her Eliquis. Plan for discharge tomorrow on antibiotics and a nephrostomy tube. She is going to be coming back to the hospital for lithotripsy and stent placed April [address] Saldaña.
--- NOTE | 2024-03-25 16:06 | PC.SS ---
SS update: anticipated discharge the patient tomorrow, if CT scan comes back normal.
--- NOTE | 2024-03-25 17:00 | PC.NURSE ---
talked to An from CT regarding CT not read yet,stated she text someone to read it.
--- NOTE | 2024-03-25 17:11 | PC.PT ---
PT eval only. Patient is xI with bed mobility, transfers, and ambulation when using O2. Patient is at her PLOF. Patient is safe to ambulate in the halls and to the bathroom with O2. Rn notified.
--- NOTE | 2024-03-25 17:37 | PC.NURSE ---
notified regarding pt.voided lt.red urine, no output from nephrostomy tube.
[2024-03-25] MEDS: lorataDINE 10 MG TABLET PO (20:57)
[2024-03-25] MEDS: MELATONIN 3 MG TABLET PO (20:57)
[2024-03-26] VITALS (7 sets, daily range): BP systolic 129–159; BP diastolic 77–89; PULSE 63–90; RESP 23–32; TEMP 36.2–36.5; O2SAT 92–96; BMI 30.3
[2024-03-26] MEDS: LEVOTHYROXINE SODIUM 25 MCG TABLET 50 MCG PO (05:10)
[2024-03-26 05:31] LABS: Basophils # (Auto) 0.1 Thou/mm3 (0.0-0.2); Basophils % (Auto) 1 % (0-2.5); Eosinophils # (Auto) 0.3 Thou/mm3 (0.0-0.5); Eosinophils % (Auto) 2 % (0-10); Hematocrit 39.5 % (36.0-46.0); Hemoglobin 13.5 g/dL (12.0-16.0); Immature Granulocytes % (Auto) 5 % (0-0); Immature Granulocytes Auto 0.64 Thou/mm3 (0.00-0.00); Lymphocytes % (Auto) 7 % (10-50); Mean Corpuscular HGB Conc 34.2 g/dl (31.0-37.0); Mean Corpuscular Hemoglobin 30.3 pg (25.0-35.0); Mean Corpuscular Volume 89 fL (80-100); Monocytes # (Auto) 0.9 Thou/mm3 (0.0-0.8); Monocytes % (Auto) 6 % (0-12); Neutrophils # (Auto) 11.1 Thou/mm3 (1.8-7.7); Neutrophils % (Auto) 79 % (37-80); Nucleated Red Blood Cell % 0 /100 WBC (0); Platelet Count 80 Thou/mm3 (140-440); RDW Standard Deviation 45.3 fL (36.4-46.3); Red Blood Count 4.45 Miln/mm3 (4.00-5.20)
[2024-03-26 06:19] LABS: Alanine Aminotransferase 20 U/L (10-49); Albumin, Serum 3.9 gm/dL (3.4-4.8); Albumin/Globulin Ratio 1.9 (1.2-2.2); Alkaline Phosphatase 112 U/L (46-116); Anion Gap 11 (7-16); Aspartate Amino Transferase 27 U/L (0-34); BUN/Creatinine Ratio 25 Ratio (12-20); Bilirubin,Total 1.5 mg/dL (0.3-1.2); Blood Urea Nitrogen 20 mg/dL (9-23); Calcium 9.4 mg/dL (8.3-10.6); Calcium (Corrected) 9.5 mg/dL (8.5-10.1); Carbon Dioxide 26.5 mMol/L (20.0-31.0); Chloride 107 mMol/L (98-107); Creatinine (Component) 0.8 mg/dL (0.6-1.3); Estimated Creatinine Clearance 45.5 mL/min (>60); Globulin 2.1 gm/dL (2.3-3.5); Glucose 104 mg/dL (74-106); Magnesium 1.8 mg/dL (1.6-2.6); Osmolality,Calculated 289 (275-295); Phosphorous 2.5 mg/dL (2.4-5.1); Potassium 3.1 mMol/L (3.4-5.1); Sodium 144 mMol/L (136-145); eGFR > 60 See Note
[2024-03-26] MEDS: DOCUSATE SOD 100 MG CAPSULE PO (08:36)
[2024-03-26] MEDS: PANTOPRAZOLE INJ 40 MG VIAL IVP (08:36)
[2024-03-26] MEDS: cefTRIAXone/D5w 1gm IV premix 50 ML IV (08:36)
[2024-03-26] MEDS: APIXABAN 2.5 MG TABLET 5 MG PO (08:37)
[2024-03-26] MEDS: NIFEdipine XL 30 MG TABCR PO (08:37)
--- NOTE | 2024-03-26 10:27 | PC.SS ---
Industrial Economist (MARTÍN) Smiley met with patient [id number] to discuss discharge plan. Patient appeared alert and oriented to self, place and situation. Patient reported that plan was to discharge to her daughter's home, and her daughter will provide transportation. Patient declined home health services.
[2024-03-26] MEDS: POTASSIUM CHLORIDE 20 mEq TABCR 40 MEQ PO (12:37)
--- NOTE | 2024-03-26 19:24 | PD.NEPHDC ---
Planned Discharge Date 03/26/24 DS: Providers Provider Date of admission: 03/22/24 15:43 Primary care physician: Vitaly Gallagher MD Admitting Provider: Vitaly Gallagher MD Attending Provider on Admission: Vitaly Gallagher MD Consults: 03/22/24 20:23 Consult to Urology Urgent Comment: Right-sided kidney stones, status post nephrostomy Consulting Provider: Puja Del Rosario 03/23/24 01:22 Referral Registered Dietitian Routine Comment: 03/24/24 14:14 Referral Physical Therapy Routine Comment: Physician Instructions: Attending Provider on DC: Vitaly Gallagher MD Discharging Provider: Vitaly Gallagher MD Discharge Diagnosis Discharge Diagnosis (1) Sepsis: Status: Acute Assessment & Plan: #Sepsis secondary to UTI #Pyelonephritis of the right side #Right kidney stone obstructive status post nephrostomy Patient presented with right-sided acute abdominal pain associated with fever and chills, WBC increased to 11, pulse rate was 119, she reported fever in which she used Tylenol at home. Urine analysis showed high level of WBCs CT scan showed obstructive hydronephrosis of the right kidney. Nephrostomy bag seems to be clearing. Urine culture and blood culture all came back positive for Klebsiella pneumonia pansensitive Plan ? Abdominal CT scan did not show any acute pathology. Patient will be discharged home on p.o. antibiotics. 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 Resume Eliquis 5 mg twice daily #GERD pepcid at home #History of hypothyroidism Plan ? Resume home medication levothyroxine 50 mcg/day #History of hypertension Resume home blood pressure medications #History of dyslipidemia Patient on Lipitor Problem List Completed Was Problem List Reviewed/Reconciled?: Yes Hospital Course Hospital Course Hospital course: An 83-year-old female patient known case of hypertension, dyslipidemia, hypothyroidism, stroke, DVTs on Eliquis, presented to the ED due to abdominal pain started 3 days before admission. The pain started in the right side and it moved to the right loin and to the back. Patient was admitted for treatment of sepsis secondary to UTI 03/23/2024, patient was seen and examined at bedside. Patient denied any new symptoms she reported significant improvement since admission. She mentions that she feels that she wants to urinate. She urinated 450 mL of dark red urine offensive and other. Today patient was complaining of mild epigastric burning sensation. She reported the pain increased when laying flat. I mentioned to the patient that her chest pain at this time most likely is epigastric in nature, however we will repeat her EKG today to see if there is any ischemic changes. Her blood pressure on the soft side we will cautiously evaluate the patient if she needs nitroglycerin sublingual. With started the patient on sucralfate suspension x 1, pantoprazole [address] Del Rosario came and saw the patient talk to the nurse staff mentioned that the patient will need to follow-up in outpatient settings after 1 week. No need for Galaviz's catheter at this time per Dr. Del Rosario. Her blood culture grew out GNR and preliminary report, will wait for the final results. Her blood pressure still a little bit on the soft side 92/63, heart rate is 73. Will give the patient 1 bolus of IV fluids and continue half maintenance 75 mL of fluids in addition to her diet and will reassess. Her lactic acid down trended from 3.5-1.9, troponin peaked at 0.395 and started to downtrend for that reason we will hold on trending troponins at this time. Patient mentions that she has been taking nitroglycerin as needed that was prescribed to her by Dr. Vela for her chest discomfort. 03/24/2024, patient was seen examined at bedside. She denied any new symptoms except she has not had bowel movement for the past 2 days. This morning a rapid response was called with the patient developed visual hallucination seeing green spots on wrists she spots and the wall, however she is conscious and oriented x 3. Stroke alert was called CT scan was done and it was negative for any hemorrhage or mass effect,However because there was no focal neurological deficit and the patient mentions that the symptoms happens whenever she does not use her glasses. For that reason, we will not pursue any further workup for stroke. We spoke with the urologist Dr. Del Rosario he recommended the patient to be discharged with a nephrostomy and to follow-up in outpatient settings after 2 weeks to do removal of kidney stones surgically. At this time her nephrostomy bag seems to be clearing from her bloody urine. For that reason we will resume her Eliquis today. Regarding her sepsis and culture urine culture was positive for GNR, preliminary blood culture was only positive in 1 bottle for GNR however still pending final lab results. Objectively her vitals 168/71 blood pressure, saturating well 98% on 4 L of oxygen for that reason DC'd her oxygen. 03/25/2024, patient was seen and examined at bedside. She was complaining of significant abdominal pain on the left side associated with constipation. Patient has not passed bowel movement since admission. On evaluation of her nephrostomy bag there was minimal output, the nurse reported 50 mL of clear liquid was drained by the night team. Her vital signs showed high blood pressure of 176/90, patient was given Fleet enema, and abdominal CAT scan was done to rule out any dislodgment of the nephrostomy tube. After the enema patient had a bowel movement in which she reported a significant improvement of her pain. Her lab showed downtrending WBCs from 19-17 today, hemoglobin stable at 13, other labs within normal limit except total bilirubin which mildly increased to 1.4 today from 1 yesterday. Liver enzymes within normal limits. Her urine culture came back positive for Klebsiella pneumonia also her blood culture came back positive for Klebsiella pneumonia pansensitive. At this time patient is on ceftriaxone. If CT scan came back normal anticipated discharge the patient tomorrow on antibiotics Augmentin to continue treatment for 14 days with antibiotics and to follow-up with Dr. Del Rosario in outpatient settings. 03/26/2024 patient currently seen in telemetry. She is resting comfortably. No further abdominal pain. CT abdomen did not show any acute pathology. Patient will be discharged home today on p.o. antibiotics. She will resume her Eliquis. Will hold Eliquis 3 days prior to her stent and lithotripsy on April [address] Saldaña. Suggested to follow-up with me in 1 to [address] Saldaña's office. Status at Discharge Cognitive/behavioral status at discharge: Stable Functional status at discharge: independent ambulation Overall status at discharge: patient is progressing back to baseline Time Spent with Patient Time attestation: Total time spent providing and/or coordinating discharge services: 35 minutes Exam Vital Signs Temp Pulse Resp BP Pulse Ox O2 Del Method O2 Flow Rate 36.2 C 90 32 H 152/82 H 96 Room Air 2 03/26/24 13:55 03/26/24 13:55 03/26/24 12:00 03/26/24 13:55 03/26/24 13:55 03/26/24 13:55 03/26/24 04:00 Narrative Exam GEN: AOx3, able to speak full sentences HEENT: NC/AC, oral mucosa dry, neck supple CVS: RRR, S1-S2 present, no murmurs appreciated RESP: CTAB GI: soft,non distended, Rt Nephrostomy bag was clear, nontender MSK: able to move all 4 limbs, no lower extremity edema SKIN: warm and dry HEALTHCARE ASSOCIATE: CN II-XII and Sensation grossly intact. Discharge Plan Plan Patient Disposition: HOME (Self Care) Disposition Comment: Dr. Gallagher admitting Patient condition on transfer: Stable and Benefits outweigh risks Prescriptions/Referrals Prescriptions/Med Rec: New amoxicillin-pot clavulanate 875-125 mg tablet 1 tab PO BID 10 Days Qty: 20 0RF apixaban 5 mg tablet 5 mg PO BID 30 Days Qty: 60 0RF Continued levothyroxine 50 mcg tablet 50 mcg PO QAM Patient Comments: TAKE 1 TABLET BY MOUTH EVERY DAY atorvastatin 10 mg tablet 10 mg PO QDAY Patient Comments: TAKE 1 TABLET BY MOUTH EVERY DAY amlodipine 5 mg tablet 5 mg PO QDAY Patient Comments: TAKE 1 TABLET BY MOUTH EVERY DAY atenolol 50 mg tablet 50 mg PO QDAY Patient Comments: TAKE 1 TABLET BY MOUTH EVERY DAY Discontinued warfarin 5 mg Tablet 5 mg PO QDAY@1200 Qty: 30 0RF No Action furosemide 20 mg Tablet 20 mg PO QDAY Referrals: Vitaly Gallagher MD [Primary Care Provider] - Patient/Caregiver Discharge Instructions Discharge Activity: activity as tolerated Education Materials: Low-Salt Choices, Urinary Tract Infections in Women, Kidney Stones Surg, Sepsis Print Language: Lithuanian Activity Restrictions/Additional Instructions: Follow-up with Dr. Saldaña in 1 week follow up your regarding your LIVER LESION WITH YOUR PRIMARY CARE PHYSICIAN Dr. Gallagher Follow-up with Dr. Gallagher in 1 week In case of an emergency or worsening of your symptoms please return to the ED as soon as possible If you notice dark red urine,into the urostomy bag please return to the ED as soon as possible Stand Alone Forms: Josi Award Info., Patient Portal Info Letter Discharge Order Discharge Orders: Discharge (Routine); Ordered 03/26/24 Ordered By: Dong Orona
== END 2024-03-26 13:49 | disposition home or self-care (01) | DRG 872 ==
LOC: SERX 15:24 → SERHOLD 16:13 → S2NX 03-23 00:13
PROVIDERS: Student in an Organized Health Care Education/Training Program; Admitting Provider Internal Medicine; Emergency Provider Emergency Medicine; PCP Internal Medicine; Visit Provider Internal Medicine
DX: A41.9 Sepsis, unspecified organism (principal); N13.6 Pyonephrosis; N17.9 Acute kidney failure, unspecified; I24.89 Other forms of acute ischemic heart disease; E78.5 Hyperlipidemia, unspecified; I10 Essential (primary) hypertension; E03.9 Hypothyroidism, unspecified; Z86.718 Personal history of other venous thrombosis and embolism; Z86.73 Personal history of transient ischemic attack (TIA), and cerebral infarction without residual deficits; Z79.01 Long term (current) use of anticoagulants; D69.6 Thrombocytopenia, unspecified; R44.1 Visual hallucinations; K21.9 Gastro-esophageal reflux disease without esophagitis; K59.00 Constipation, unspecified; B96.1 Klebsiella pneumoniae [K. pneumoniae] as the cause of diseases classified elsewhere; Z86.711 Personal history of pulmonary embolism
CPT/HCPCS: 36415; 70450; 71045; 74018; 74150; 74176; 74425; 76998; 80053; 81001; 82140; 83605; 83690; 83735; 83880; 84100; 84145; 84443; 84484; 85025; 85610; 85730; 87040; 87077; 87086; 87186; 87811; 93005; 96365; 97162; 99285; C1729; C1769; J0696; J2405; J2470; J2543; J3010; J3475; J3490; J7030; J7050; J7120; P9047; Q9958; A9270; J1920

== ENCOUNTER 2024-04-06 10:36 | Emergency (ER) | payer MEDICARE, BC, SELFPAY ==
[2024-04-06 10:47] VITALS: BP 132/68; PULSE 78; RESP 22; TEMP 36.4; O2SAT 96
--- NOTE | 2024-04-06 10:53 | XR_ITS ---
Examination: CT abdomen with intravenous contrast CT pelvis with intravenous contrast 2-D coronal reconstructions 2-D sagittal reconstructions Date and time of exam:April 06, 2024 at 1404 hours Comparison March 25, 2024 INDICATIONS: Generalized abdominal pain today, history right percutaneous nephrostomy. CTDI: vol (mGy) 24.1 DLP: (mGycm) 10/15/2025 Technique: Multiple axial sections of the abdomen and pelvis have been obtained. 64 slice high-resolution scanner used. 3 mm axial sections have been obtained, post intravenous injection 100 cc Isovue-370 2-D sagittal, coronal reconstructions obtained. Low dose protocols were performed. One or more of the following dose reduction techniques were used; automated exposure control, adjustment of the mA and/or KV according to patient size, use of iterative reconstruction technique. Findings: 17 mm anterior left splenic lesion 5 mm left lobe liver cyst No pancreatic mass No gallstones Right percutaneous nephrostomy tube noted no significant right hydronephrosis Aorta normal size Normal appendix No bowel obstruction Colonic diverticulosis, no diverticulitis Mild thickening urinary bladder wall Moderate stool in the rectum Grade 1 anterolisthesis L4 on L5 IMPRESSION: Recommend dedicated splenic sonography to assess anterior left splenic lesion Right percutaneous nephrostomy , no significant right hydronephrosis Mild cystitis pattern
--- NOTE | 2024-04-06 10:54 | XR_ITS ---
Examination: Abdomen sonogram, Limited Date and time of exam: April 06, 2024 1114 hours INDICATIONS: Right upper abdominal pain and chest pain today, CT abdomen examination March 25, 2024 6 mm low-density lesion left lobe liver, gallbladder wall thickening on the CT study Technique: Real-time tee scale transabdominal sonographic images of the upper abdomen obtained. Findings: Negative for gallstones Gallbladder wall 0.3 cm no edema Common bile duct 0.7 cm no stones Pancreatic head 2.4 cm Liver 12.3 cm fatty infiltration left lobe liver cyst 11 x 9 x 11 mm Normal hepatopedal portal venous flow Patent IVC IMPRESSION: Borderline thickening gallbladder wall, clinical correlation advised, consider HIDA scan follow-up Fatty liver, left lobe liver cyst 11 x 11 mm
--- NOTE | 2024-04-06 10:54 | XR_ITS ---
Examination: CTA chest with intravenous contrast 2-D reconstructions 3-D reconstructions, vascular Date and time of exam: April 06, 2024 1404 hours INDICATIONS: Onset shortness of breath chest pain today CTDI: vol (mGy) 12.6 DLP: (mGycm) 421 Technique: Multiple axial sections of the thorax have been obtained. 3 mm slice thickness, from below the hemidiaphragms to above the apices of the lungs. Mediastinal and lung density settings have been obtained. 2-D sagittal and coronal reconstructions. 3-D angiographic renderings, 3-D volume renderings, 3D post processing, vascular maximum intensity projections obtained. Contrast administered is 100 cc Isovue-370. Low dose protocols were performed. One or more of the following dose reduction techniques were used; automated exposure control, adjustment of the mA and/or KV according to patient size, use of iterative reconstruction technique. Findings: No thoracic aortic aneurysm dilatation or dissection Pulmonary artery segments are not enlarged There are multiple filling defects in right lower lobe pulmonary artery branches, for instance axial images 83 through 93 There are small filling defects in the left upper lobe pulmonary artery branches for instance axial image 72 No mediastinal lymphadenopathy Mild vascular congestion No lobar pneumonia 5 mm left lobe liver cyst No pancreatic mass No gallstones Partial visualization right percutaneous surf ostomy tube with no right hydronephrosis IMPRESSION: Multiple small right lower lobe and left upper lobe pulmonary artery emboli
--- NOTE | 2024-04-06 10:58 | PD.EDCHEST ---
ED Chest Pain RME/HPI General Chief Complaint: Chest Pain Stated Complaint: TRANSFER Time Seen by Provider: 04/06/24 10:44 Arrival date/time: 04/06/24 10:36 RME / HPI RME / HPI narrative: This section includes all my notes and documentations, including HPI, PE, and ED course.? Scott Mckenzie MD HPI: 83 year old female with history of CVA, hypertension, hyperlipidemia, hypothyroidism, PE on Eliquis presents to the ED brought from the flex care unit within this facility for evaluation of chest pain today. Per RN's, the patient was being prepared for cystoscopy with laser lithotripsy when she began to have chest pain. Located most to the center of chest without any radiation, initially described as a burning indigestion feeling that progressed to heaviness adding it felt like an elephant was standing on my chest. Rating as severe. Accompanied by feeling lightheaded. States she has experienced similar chest pain in the past and during that time diagnosed with PE. Denies any fevers, chills, sweats, cough, shortness of breath, abdominal pain, vomiting, diarrhea or urinary symptoms. Didn't take Eliquis for several days due to the procedure today. No other complaints. ROS: All negative except as documented in HPI. Physical Exam: General:? Alert and oriented.? No acute distress when remaining still.?? Eyes:? Conjunctivae and lids clear.? ENT:? No nasal congestion.? Neck:? Supple.? Heart:? RRR.? Lungs:? No respiratory distress.? Good air movement.? No rhonchi, wheezing, rales.?? Chest: No tenderness. Abdomen:? Soft and nontender.?? Legs:? No clubbing, cyanosis, edema.? Skin:? Warm and dry.?? Neuro:? Alert and oriented X 3.?? I reviewed all diagnostic test results. My interpretation of the EKG is Sinus rhythm with no acute ST-T changes. My review of the abdomen/pelvis CT report is?right percutaneous nephrostomy , no significant right hydronephrosis. My review of the chest CTA report is multiple small right lower lobe and left upper lobe pulmonary artery emboli. My review of the gallbladder ultrasound report shows no gallstones. Blood tests and urine tests?remarkable for D-Dimer 2009. At this point, diagnoses include?pulmonary embolism, worsening due to not taking Eliquis for the past several days due to the planned procedure today. Treatment here included?Eliquis 10 mg and Morphine and Dilaudid. Remaines table. I discussed the case with Dr. Gallagher (patient's PCP) and Dr. Del Rosario (patient's Urologist).? About the presentation and exam and diagnostics and treatments here.? And possible need of further care in the hospital.? Both recommended further outpatient care and followup. Based on my best medical judgment, made decision no further evaluation or treatment indicated at this time.? Patient understands and agrees to the discharge instructions customized and printed, see below. Discharge Instructions from Dr. Mckenzie printed for you: 1. After extensive evaluation (including discussions with your doctors, Dr. Gallagher and Dr. Del Rosario), you are being discharged home with recommended outpatient follow-ups. 2. Your symptoms were most likely due to worsening blood clots in your lungs from not taking Eliquis for a few days. 3. Resume your Eliquis as prescribed. 4. See Dr. Gallagher tomorrow or the day after for recheck and further care. And see Dr. Del Rosario early next week. 5. Tylenol with codeine for severe pain. Zofran for nausea/vomiting. 6. Seek immediate medical care with worsening or with any concerns. Scott Mckenzie MD Related Data Home Medications ?Medication ?Instructions ?Recorded ?Confirmed levothyroxine 50 mcg tablet 50 mcg PO QAM 12/15/18 04/11/24 amlodipine 5 mg tablet 5 mg PO QDAY 12/18/21 04/11/24 atenolol 50 mg tablet 50 mg PO QDAY 12/18/21 04/11/24 atorvastatin 10 mg tablet 10 mg PO QDAY 12/18/21 04/11/24 furosemide 20 mg tablet 20 mg PO QDAY 03/26/24 04/11/24 Previous Rx's ?Medication ?Instructions ?Recorded apixaban 5 mg tablet 5 mg PO BID 30 days #60 tabs 03/25/24 acetaminophen 300 mg-codeine 30 mg 2 tab PO TID PRN pain #20 tabs 04/06/24 tablet Allergies Allergy/AdvReac Type Severity Reaction Status Date / Time acetaminophen (From Vicodin) Allergy Severe Rash Verified 04/13/24 10:05 hydrocodone (From Vicodin) Allergy Severe Rash Verified 04/13/24 10:05 nut - unspecified Allergy Severe Swelling Verified 04/13/24 10:05 of Lip/Tongue/Throat peanut Allergy Severe Swelling Verified 04/13/24 10:05 of Lip/Tongue/Throat latex Allergy Unknown RASH Verified 04/13/24 10:05 adhesive tape Allergy Verified 04/13/24 10:05 Review of Systems Review of Systems Systems Reviewed: All systems reviewed, normal except as documented Past Medical History Past Medical History NEUROLOGIC: Positive Neurological Disorders, Cerebrovascular Accident, Subdural Hematoma (when she had the stroke she fell to floor and develop hematoma, no surgery) and Migraine CARDIAC: Positive Heart Murmur, Hypercholesterolemia, Deep Vein Thrombosis (Bilateral legs, groin) and Hypertension RESPIRATORY: Positive Pneumonia and Pulmonary Embolism GASTROINTESTINAL: Positive Hepatitis GENITOURINARY: Positive Genitourinary Disorders and Kidney Stones REPRODUCTIVE: Positive Previous Pregnancies MUSCULOSKELETAL: Positive Musculoskeletal Disorders, Arthritis and Gout ENDOCRINE: Positive Endocrine Disorders and Hypothyroidism HEMATOLOGIC: Positive Blood Disorders and Anemia PSYCHO/SOCIAL: Positive Depression (no meds) and Anxiety OTHER HISTORY: Positive Hospitalization (CVA), Shingles, Chicken Pox, Measles and Rubella ([place] Measles) Family History FAMILY HISTORY: Positive Family Cardiac Disorders and Family Cancer Surgical History SURGICAL: Positive Tonsillectomy and Hysterectomy Social History SMOKING STATUS: Never smoker SUBSTANCE USE: does not use ED Exam Narrative Physical exam: As noted in HPI Course Quality Measures none Orders Category Date Time Status CT Screening NOW Care 04/06/24 10:53 Completed EKG (ED ONLY) *Do not use* NOW Care 04/06/24 10:54 Completed Saline [Insert IV] NOW Care 04/06/24 10:52 Completed Consult to Urology Stat Cons 04/06/24 13:[address] abdomen pelvis w con Stat Exams 04/06/24 10:[address] angio chest Stat Exams 04/06/24 10:54 Completed EKG (ED Only) Stat Exams 04/06/24 10:54 Ordered US gall bladder Stat Exams 04/06/24 10:54 Completed Amylase Stat Lab 04/06/24 11:36 Completed BNP [B-Type Natriuretic Peptide] Stat Lab 04/06/24 11:36 Completed CBC Stat Lab 04/06/24 11:36 Completed CMP [Comprehensive Metabolic Panel] Stat Lab 04/06/24 11:36 Completed D-Dimer Stat Lab 04/06/24 11:36 Completed Lipase Stat Lab 04/06/24 11:36 Completed Magnesium Stat Lab 04/06/24 11:36 Completed TSH [Thyroid Stimulating Hormone] Stat Lab 04/06/24 11:36 Completed Troponin I Stat Lab 04/06/24 11:36 Completed Troponin I Stat Lab 04/06/24 15:50 Completed UA, C/S IF [Urinalysis, C/S if Indicated] Stat Lab 04/06/24 15:24 Completed Urine Culture Stat Lab 04/06/24 15:24 Completed Apixaban [Eliquis] Med 04/06/24 15:06 Discontinued 10 mg PO X1 ONE HYDROmorphone INJ [Dilaudid Inj] Med 04/06/24 15:36 Discontinued 2 mg IVP X1 ONE Morphine Inj Med 04/06/24 10:52 Discontinued 4 mg IVP X1 ONE Ondansetron Inj [Zofran Inj] Med 04/06/24 10:52 Discontinued 4 mg IV X1 ONE Sodium Chloride 0.9% 1000 ml [Ns] 1,000 ml Med 04/06/24 10:52 Discontinued IV 999 mls/hr Vital Signs Vital signs: Vital Signs Temperature 97.5 F 04/06/24 10:47 Pulse Rate 78 04/06/24 10:47 Respiratory Rate 22 H 04/06/24 10:47 Blood Pressure 132/68 H 04/06/24 10:47 Pulse Oximetry (%) 96 04/06/24 10:47 Oxygen Delivery Method Room Air 04/06/24 10:47 Pulse ox is 96% on room air which is adequate. Chest Pain MDM Narrative MDM Narrative:: Kristen Keen am scribing for and in the presence of Dr. Mckenzie. Patient data External records reviewed:: [facility] (I reviewed admission from 03/22/2024 through 03/26/2024) Clinical information provided by:: patient and other (specify) (RN) Social determinants that could affect healthcare access:: none Patient has the following chronic illnesses:: CVA, hypertension, hyperlipidemia, hypothyroidism, DVTs on Eliquis How is presenting disease/condition affected by chronic disease/condition?: exacerbated by Evaluation data The following diagnostics were reviewed and interpreted by me:: lab results, radiology exam(s) and EKG tracing(s) Lab and/or radiology exams considered but not ordered:: None Interpretation Summary: PE Medications / Prescriptions Medications or Prescriptions considered but not ordered:: None Medication administrations:: Medication Administration History Discontinued Medications Apixaban (Apixaban 2.5 Mg Tablet) 10 mg PO X1 ONE Stop: 04/06/24 15:07 Last Admin: 04/06/24 15:51 Dose: 10 mg Documented By: CHARLES Hydromorphone HCl (Hydromorphone Inj 2 Mg/Ml Vial) 2 mg IVP X1 ONE Stop: 04/06/24 15:37 Last Admin: 04/06/24 15:51 Dose: 2 mg Documented By: CHARLES Sodium Chloride (Ns) 1,000 mls @ 999 mls/hr IV .Q1H1M ONE Stop: 04/06/24 11:52 Last Infusion: 04/06/24 15:00 Dose: Infused Documented By: Admin: 04/06/24 13:37 Dose: 999 mls/hr Documented By: CHARLES Morphine Sulfate (Morphine Sulf Inj 10 Mg/Ml Vial) 4 mg IVP X1 ONE Stop: 04/06/24 10:53 Last Admin: 04/06/24 13:38 Dose: 4 mg Documented By: CHARLES Ondansetron HCl (Ondansetron Inj 2 Mg/Ml Inj 2 Ml) 4 mg IV X1 ONE; Protocol Stop: 04/06/24 10:53 Last Admin: 04/06/24 13:37 Dose: 4 mg Documented By: CHARLES Patient given zofran, morphine, IV fluids, Eliquis, and dilaudid Consultations Consultation(s) initiated? (list below): Yes Consultation #1 (Physician, Specialty, Details): I discussed the case with Dr. Gallagher (patient's PCP) and Dr. Del Rosario (patient's Urologist).? About the presentation and exam and diagnostics and treatments here.? And possible need of further care in the hospital.? Both recommended further outpatient care and followup. Diagnosis Chest Pain Differential Diagnosis: pneumothorax, stable angina, atypical chest pain, st elevation myocardial infarction, costochondritis, chest pain and biliary colic Most likely diagnosis given after review of the tests above:: Pulmonary embolism Admission Indicated Admission indicated?: not indicated Explain why admission is indicated or not indicated:: I discussed the case with Dr. Gallagher (patient's PCP) and Dr. Del Rosario (patient's Urologist).? About the presentation and exam and diagnostics and treatments here.? And possible need of further care in the hospital.? Both recommended further outpatient care and followup. Admission Request Was there a request for admission?: No Disposition Plan Disposition Plan: Discharge Discharge Attestation Discharge Attestation: The patient and all family members were given an opportunity to ask questions and understood the discharge instructions. Discharge instructions specifically effects, indications for sooner follow up or return to the emergency department, and the expected course of current diagnosis. Patient condition: Stable Discharge Plan Plan Patient Disposition: HOME (Self Care) Patient condition on transfer: Stable Prescriptions/Referrals Prescriptions/Med Rec: New acetaminophen-codeine 300-30 mg tablet 2 tab PO TID MDD 6 PRN (Reason: pain) Qty: 20 0RF No Action levothyroxine 50 mcg tablet 50 mcg PO QAM Patient Comments: TAKE 1 TABLET BY MOUTH EVERY DAY atorvastatin 10 mg tablet 10 mg PO QDAY Patient Comments: TAKE 1 TABLET BY MOUTH EVERY DAY amlodipine 5 mg tablet 5 mg PO QDAY Patient Comments: TAKE 1 TABLET BY MOUTH EVERY DAY atenolol 50 mg tablet 50 mg PO QDAY Patient Comments: TAKE 1 TABLET BY MOUTH EVERY DAY apixaban 5 mg tablet 5 mg PO BID 30 Days Qty: 60 0RF furosemide 20 mg Tablet 20 mg PO QDAY Referrals: Vitaly Gallagher MD [Primary Care Provider] - In 1 week Problem List Clinical Impression: Pulmonary embolism Patient/Caregiver Discharge Instructions Discharge Activity: activity as tolerated Education Materials: Pulmonary Embolism Additional Instructions: Discharge Instructions from Dr. Mckenzie printed for you: 1. After extensive evaluation (including discussions with your doctors, Dr. Gallagher and Dr. Del Rosario), you are being discharged home with recommended outpatient follow-ups. 2. Your symptoms were most likely due to worsening blood clots in your lungs from not taking Eliquis for a few days. 3. Resume your Eliquis as prescribed. 4. See Dr. Gallagher tomorrow or the day after for recheck and further care. And see Dr. Del Rosario early next week. 5. Tylenol with codeine for severe pain. Zofran for nausea/vomiting. 6. Seek immediate medical care with worsening or with any concerns. Print Language: Filipino Stand Alone Forms: Josi Award Info., Patient Portal Info Letter
[2024-04-06 12:02] VITALS: BP 127/66; PULSE 76; RESP 20; TEMP 36.4; O2SAT 96
[2024-04-06 12:07] LABS: Basophils # (Auto) 0.1 Thou/mm3 (0.0-0.2); Basophils % (Auto) 1 % (0-2.5); Eosinophils # (Auto) 0.1 Thou/mm3 (0.0-0.5); Eosinophils % (Auto) 1 % (0-10); Hematocrit 43.1 % (36.0-46.0); Hemoglobin 14.2 g/dL (12.0-16.0); Immature Granulocytes % (Auto) 1 % (0-0); Immature Granulocytes Auto 0.07 Thou/mm3 (0.00-0.00); Lymphocytes % (Auto) 11 % (10-50); Mean Corpuscular HGB Conc 32.9 g/dl (31.0-37.0); Mean Corpuscular Hemoglobin 30.3 pg (25.0-35.0); Mean Corpuscular Volume 92 fL (80-100); Monocytes # (Auto) 0.8 Thou/mm3 (0.0-0.8); Monocytes % (Auto) 9 % (0-12); Neutrophils # (Auto) 6.8 Thou/mm3 (1.8-7.7); Neutrophils % (Auto) 77 % (37-80); Nucleated Red Blood Cell % 0 /100 WBC (0); Platelet Count 151 Thou/mm3 (140-440); RDW Standard Deviation 47.2 fL (36.4-46.3); Red Blood Count 4.68 Miln/mm3 (4.00-5.20); White Blood Count 8.8 Thou/mm3 (3.6-11.0)
[2024-04-06 12:12] VITALS: BMI 26.9
[2024-04-06 12:23] LABS: D-Dimer 2010 ng/mL (<600)
[2024-04-06 12:27] LABS: B-Type Natriuretic Peptide 28 pg/mL (0-100)
[2024-04-06 12:50] LABS: Alanine Aminotransferase 10 U/L (10-49); Albumin, Serum 4.5 gm/dL (3.4-4.8); Albumin/Globulin Ratio 1.7 (1.2-2.2); Alkaline Phosphatase 74 U/L (46-116); Amylase 126 U/L (30-118); Anion Gap 10 (7-16); Aspartate Amino Transferase 14 U/L (0-34); BUN/Creatinine Ratio 31 Ratio (12-20); Blood Urea Nitrogen 31 mg/dL (9-23); Calcium 9.6 mg/dL (8.3-10.6); Calcium (Corrected) 9.6 mg/dL (8.5-10.1); Carbon Dioxide 29.1 mMol/L (20.0-31.0); Chloride 99 mMol/L (98-107); Estimated Creatinine Clearance 34.3 mL/min (>60); Globulin 2.6 gm/dL (2.3-3.5); Glucose 102 mg/dL (74-106); Lipase 62 U/L (12-53); Osmolality,Calculated 282 (275-295); Sodium 138 mMol/L (136-145); Thyroid Stimulating Hormone 3.09 uIU/mL (0.55-4.78); Total Protein 7.1 gm/dL (5.7-8.2); Troponin I < 0.020 ng/mL (0.0-0.045); eGFR 56 See Note
[2024-04-06] MEDS: SODIUM CHLORIDE 0.9% 1000 ML 1,000 ML 999 ML IV (13:37)
[2024-04-06] MEDS: ONDANSETRON INJ 2 MG/ML INJ 2 ML 4 MG IV (13:37)
[2024-04-06] MEDS: MORPHINE SULF INJ 10 MG/ML VIAL 4 MG IVP (13:38)
[2024-04-06 15:31] LABS: Collection Type, Urine Clean Catch
--- NOTE | 2024-04-06 15:37 | PC.NURSE ---
Patient states pain 9/10. ER provider informed and verbal order given for 2mg hydromorphone IV.
[2024-04-06] MEDS: HYDROmorphone INJ 2 MG/ML VIAL IVP (15:51)
[2024-04-06] MEDS: APIXABAN 2.5 MG TABLET 10 MG PO (15:51)
[2024-04-06 16:04] LABS: Bacteria,Urine 1+; Bilirubin,Urine Negative (Negative); Blood,Urine Negative (Negative); Clarity,Urine Clear (Clear/Hazy); Color,Urine Lt-Yellow (Lt Yel-Yel); Glucose, Urine Negative (Negative); Ketones,Urine Trace (Negative); Leukocyte Esterase,Urine Negative (Negative); Nitrite,Urine Negative (Negative); Protein,Urine Trace (Neg - Trace); RBC,Urine 308 /hpf (0-3); Squamous Epithelial Cell,Urine 2 /hpf (0-5); Urobilinogen,Urine Negative mg/dL (0.0-1.0); WBC,Urine 2 /hpf (0-5)
[2024-04-06 16:05] LABS: Culture Indicated,Urine Yes
[2024-04-06 17:06] LABS: Troponin I < 0.020 ng/mL (0.0-0.045)
--- NOTE | 2024-04-11 14:04 | ESCONSULT_ITS ---
RE: ZENIA DIAZ : 1940 DATE OF CONSULTATION: 04/06/2024 CHIEF COMPLAINT: Right-sided pain with history of nausea and vomiting, status post placement of percutaneous nephrostomy right side because of 8 mm stone, proximal ureter right side. HISTORY OF PRESENT ILLNESS: This is an 83-year-old female. She has a history of stone disease in the past. She denies any history of gross hematuria. She has a CAT scan of the abdomen and pelvis done. This revealed 8 mm stone proximal ureter right side status post placement of percutaneous nephrostomy. COMORBID CONDITIONS: 1. Hypertension. 2. Dyslipidemia. 3. Hypothyroidism. 4. Status post CVA, DVT on Eliquis. VARIOUS MEDICATIONS: 1. Amlodipine. 2. Atorvastatin. 3. Thyroxine. 4. Eliquis. PHYSICAL EXAMINATION: General: Condition is satisfactory. Orientation x3. HEENT: Normocephalic and atraumatic. Eyes, no anemia or jaundice. Neck: Supple. Trachea is central. Thyroid is not enlarged. Extremities: Reveal no edema, cyanosis or clubbing. Vital Signs: Stable. They are in HPI, in EMR. Chest: Symmetrical. Heart: Regular rate and rhythm. Abdomen: Soft, nontender. No masses. Liver, spleen, kidney not palpable. Status post placement of right percutaneous nephrostomy. My RN was my lead web developer. CAT scan is reviewed by me. This patient had 8 mm right proximal ureter stone with hydronephrosis status post placement of percutaneous nephrostomy. 2. Sepsis. RECOMMENDATION: 1. The patient was scheduled for cysto right retrograde pyelogram, ureteroscope, laser stone fragmentation, stone basketing, and removal of the percutaneous nephrostomy tube. In the Flex Care, the patient had chest pain. The procedure was canceled by the anesthesiologist and the patient was transferred to the emergency room. She is going to have a complete workup and clearance by asbestos remover 2. The patient is scheduled for cystoscopy examination, right retrograde pyelogram, ureteroscopy right, removal of right nephrostomy tube, laser stone fragmentation, stone basketing. This will be after she has a cardiology clearance. DT: 14:04:48 TT: 16:16:00 Ref: - TID: [id number] MTDD
== END 2024-04-06 16:20 | disposition home or self-care (01) ==
PROVIDERS: Emergency Provider Emergency Medicine; PCP Internal Medicine
DX: I26.99 Other pulmonary embolism without acute cor pulmonale (principal); R10.11 Right upper quadrant pain; I10 Essential (primary) hypertension; Z96.0 Presence of urogenital implants
CPT/HCPCS: 36415; 71275; 74177; 76705; 80053; 81001; 82150; 83690; 83735; 83880; 84443; 84484; 85025; 85379; 87086; 93005; 96361; 96374; 96375; 99285; A4649; J2270; J2405; J3490; J7030; Q9967; A9270

== ENCOUNTER → 2024-04-06 | Day surgery (SDC) | payer MEDICARE, BC, SELFPAY ==
--- NOTE | 2024-03-26 19:18 | PD.NEPHDC ---
Planned Discharge Date 03/26/24 DS: Providers Provider Attending Provider on Admission: Puja Del Rosario MD Attending Provider on DC: Vitaly Gallagher MD Discharging Provider: Vitaly Gallagher MD Discharge Diagnosis Discharge Diagnosis (1) Acute UTI: Status: Acute (2) Sepsis: Status: Acute Assessment & Plan: #Sepsis secondary to UTI #Pyelonephritis of the right side #Right kidney stone obstructive status post nephrostomy Patient presented with right-sided acute abdominal pain associated with fever and chills, WBC increased to 11, pulse rate was 119, she reported fever in which she used Tylenol at home. Urine analysis showed high level of WBCs CT scan showed obstructive hydronephrosis of the right kidney. Nephrostomy bag seems to be clearing. Urine culture and blood culture all came back positive for Klebsiella pneumonia pansensitive Plan ? Abdominal CT scan did not show any acute pathology. Patient will be discharged home on p.o. antibiotics. 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 Resume Eliquis 5 mg twice daily #GERD pepcid at home #History of hypothyroidism Plan ? Resume home medication levothyroxine 50 mcg/day #History of hypertension Resume home blood pressure medications #History of dyslipidemia Patient on Lipitor (3) Right ureteral stone: Status: Acute Problem List Completed Was Problem List Reviewed/Reconciled?: Yes Hospital Course Hospital Course Hospital course: An 83-year-old female patient known case of hypertension, dyslipidemia, hypothyroidism, stroke, DVTs on Eliquis, presented to the ED due to abdominal pain started 3 days before admission. The pain started in the right side and it moved to the right loin and to the back. Patient was admitted for treatment of sepsis secondary to UTI 03/23/2024, patient was seen and examined at bedside. Patient denied any new symptoms she reported significant improvement since admission. She mentions that she feels that she wants to urinate. She urinated 450 mL of dark red urine offensive and other. Today patient was complaining of mild epigastric burning sensation. She reported the pain increased when laying flat. I mentioned to the patient that her chest pain at this time most likely is epigastric in nature, however we will repeat her EKG today to see if there is any ischemic changes. Her blood pressure on the soft side we will cautiously evaluate the patient if she needs nitroglycerin sublingual. With started the patient on sucralfate suspension x 1, pantoprazole [address] Del Rosario came and saw the patient talk to the nurse staff mentioned that the patient will need to follow-up in outpatient settings after 1 week. No need for Galaviz's catheter at this time per Dr. Del Rosario. Her blood culture grew out GNR and preliminary report, will wait for the final results. Her blood pressure still a little bit on the soft side 92/63, heart rate is 73. Will give the patient 1 bolus of IV fluids and continue half maintenance 75 mL of fluids in addition to her diet and will reassess. Her lactic acid down trended from 3.5-1.9, troponin peaked at 0.395 and started to downtrend for that reason we will hold on trending troponins at this time. Patient mentions that she has been taking nitroglycerin as needed that was prescribed to her by Dr. Vela for her chest discomfort. 03/24/2024, patient was seen examined at bedside. She denied any new symptoms except she has not had bowel movement for the past 2 days. This morning a rapid response was called with the patient developed visual hallucination seeing green spots on wrists she spots and the wall, however she is conscious and oriented x 3. Stroke alert was called CT scan was done and it was negative for any hemorrhage or mass effect,However because there was no focal neurological deficit and the patient mentions that the symptoms happens whenever she does not use her glasses. For that reason, we will not pursue any further workup for stroke. We spoke with the urologist Dr. Del Rosario he recommended the patient to be discharged with a nephrostomy and to follow-up in outpatient settings after 2 weeks to do removal of kidney stones surgically. At this time her nephrostomy bag seems to be clearing from her bloody urine. For that reason we will resume her Eliquis today. Regarding her sepsis and culture urine culture was positive for GNR, preliminary blood culture was only positive in 1 bottle for GNR however still pending final lab results. Objectively her vitals 168/71 blood pressure, saturating well 98% on 4 L of oxygen for that reason DC'd her oxygen. 03/25/2024, patient was seen and examined at bedside. She was complaining of significant abdominal pain on the left side associated with constipation. Patient has not passed bowel movement since admission. On evaluation of her nephrostomy bag there was minimal output, the nurse reported 50 mL of clear liquid was drained by the night team. Her vital signs showed high blood pressure of 176/90, patient was given Fleet enema, and abdominal CAT scan was done to rule out any dislodgment of the nephrostomy tube. After the enema patient had a bowel movement in which she reported a significant improvement of her pain. Her lab showed downtrending WBCs from 19-17 today, hemoglobin stable at 13, other labs within normal limit except total bilirubin which mildly increased to 1.4 today from 1 yesterday. Liver enzymes within normal limits. Her urine culture came back positive for Klebsiella pneumonia also her blood culture came back positive for Klebsiella pneumonia pansensitive. At this time patient is on ceftriaxone. If CT scan came back normal anticipated discharge the patient tomorrow on antibiotics Augmentin to continue treatment for 14 days with antibiotics and to follow-up with Dr. Del Rosario in outpatient settings. 03/26/2024 patient currently seen in telemetry. She is resting comfortably. No further abdominal pain. CT abdomen did not show any acute pathology. Patient will be discharged home today on p.o. antibiotics. She will resume her Eliquis. Will hold Eliquis 3 days prior to her stent and lithotripsy on April [address] Saldaña. Suggested to follow-up with me in 1 to [address] Saldaña's office. Status at Discharge Cognitive/behavioral status at discharge: Stable Functional status at discharge: independent ambulation Overall status at discharge: patient is progressing back to baseline Time Spent with Patient Time attestation: Total time spent providing and/or coordinating discharge services: 35 minutes Exam Vital Signs Temp Pulse Resp BP Pulse Ox O2 Del Method O2 Flow Rate 97.9 F 70 24 H 181/81 H 93 L Nasal Cannula 1 03/25/24 08:00 03/25/24 12:00 03/25/24 08:00 03/25/24 11:21 03/25/24 08:00 03/25/24 08:00 03/25/24 08:00 Narrative Exam GEN: AOx3, able to speak full sentences HEENT: NC/AC, oral mucosa dry, neck supple CVS: RRR, S1-S2 present, no murmurs appreciated RESP: CTAB GI: soft,non distended, Rt Nephrostomy bag was clear, nontender MSK: able to move all 4 limbs, no lower extremity edema SKIN: warm and dry BOX PACKER: CN II-XII and Sensation grossly intact. Discharge Plan Prescriptions/Referrals Prescriptions/Med Rec: No Action levothyroxine 50 mcg tablet 50 mcg PO QAM Patient Comments: TAKE 1 TABLET BY MOUTH EVERY DAY atorvastatin 10 mg tablet 10 mg PO QDAY Patient Comments: TAKE 1 TABLET BY MOUTH EVERY DAY amlodipine 5 mg tablet 5 mg PO QDAY Patient Comments: TAKE 1 TABLET BY MOUTH EVERY DAY atenolol 50 mg tablet 50 mg PO QDAY Patient Comments: TAKE 1 TABLET BY MOUTH EVERY DAY amoxicillin-pot clavulanate 875-125 mg tablet 1 tab PO BID 10 Days Qty: 20 0RF apixaban 5 mg tablet 5 mg PO BID 30 Days Qty: 60 0RF furosemide 20 mg Tablet 20 mg PO QDAY Patient/Caregiver Discharge Instructions Print Language: Cameroonian
--- NOTE | 2024-03-28 08:53 | CHAP ---
Addendum entered by Jay Combs 03/28/24 08:54: [I inadvertently put today's date. Patient was visited on 03-25-19] Original Note: Patient was visited by the Spiritual Care Volunteer who prayed outside door for them. (Volunteer was in the hospital from c 10:00-11:00)
[2024-04-05 11:00] VITALS: BMI 26.6
[2024-04-05 12:55] LABS: Alanine Aminotransferase 12 U/L (10-49); Albumin, Serum 5.3 gm/dL (3.4-4.8); Albumin/Globulin Ratio 1.8 (1.2-2.2); Alkaline Phosphatase 86 U/L (46-116); Anion Gap 11 (7-16); Aspartate Amino Transferase 14 U/L (0-34); BUN/Creatinine Ratio 25 Ratio (12-20); Bilirubin,Total 1.2 mg/dL (0.3-1.2); Blood Urea Nitrogen 33 mg/dL (9-23); Calcium 10.6 mg/dL (8.3-10.6); Calcium (Corrected) 10.6 mg/dL (8.5-10.1); Carbon Dioxide 30.1 mMol/L (20.0-31.0); Chloride 95 mMol/L (98-107); Creatinine (Component) 1.3 mg/dL (0.6-1.3); Estimated Creatinine Clearance 26.3 mL/min (>60); Glucose 113 mg/dL (74-106); Osmolality,Calculated 280 (275-295); Potassium 4.2 mMol/L (3.4-5.1); Sodium 136 mMol/L (136-145); Total Protein 8.3 gm/dL (5.7-8.2); eGFR 41 See Note
--- NOTE | 2024-04-05 14:30 | SUR.PREOP ---
Pt's platelets on 03/26/24 where 80, Dr Del Rosario and Dr Gallagher, ok for pt to proceed with sugery
[2024-04-06 08:55] VITALS: BP 154/80; PULSE 78; RESP 14; TEMP 36.2; O2SAT 96; BMI 27.6
[2024-04-06] MEDS: VANCOMYCIN/NS 1 GM IVPB 200 ML IV (09:25)
[2024-04-06] MEDS: RINGERS LACTATED 1000 ML 1,000 ML 20 ML IV (09:25)
--- NOTE | 2024-04-06 10:23 | EKG_ITS ---
[facility] Test Date: 2024-04-06 Pat Name: ZENIA DIAZ Department: Room: - Gender: Female Rn Clinical: LATASHA : 1940 Requested By: Manpreet Dudley Order Number: [id number] Reading MD: Manpreet Dudley Measurements Intervals [place] Rate: 70 P: 31 CA: 145 QRS: -54 QRSD: 117 T: 6 QT: 420 QTc: 454 Interpretive Statements SINUS RHYTHM LOW QRS VOLTAGE IN PRECORDIAL LEADS PATTERN CONSISTENT WITH PULMONARY DISEASE INCOMPLETE RIGHT BUNDLE BRANCH BLOCK LEFT ANTERIOR FASCICULAR BLOCK Compared to ECG 04/05/2024 12:09:25 Myocardial infarct finding no longer present /store/S0/[id number].pdf
--- NOTE | 2024-04-06 10:30 | SUR.PREOP ---
pt co chest pain. seen and evaluated. surgery cancelled by anesthesia. taken to ed for further evaluation.
== END | disposition home or self-care (01) ==
PROVIDERS: Anesthesiology; PCP Internal Medicine; Referring Provider Urology; Visit Provider Urology
PROC: 0TJB8ZZ Inspection of Bladder, Via Natural or Artificial Opening Endoscopic (ICD-10-PCS; CPT 52000; principal; 2024-04-06 10:15)
DX: N13.2 Hydronephrosis with renal and ureteral calculous obstruction (principal); Z01.810 Encounter for preprocedural cardiovascular examination
CPT/HCPCS: 52354; 36415; 80053; 93005; J3370; J7120; A9270

== ENCOUNTER 2024-04-11 13:45 | Inpatient (IN) | payer MEDICARE, BC, SELFPAY ==
[2024-04-11 14:58] VITALS: BMI 26.6
--- NOTE | 2024-04-11 15:38 | PD.RESHP ---
Documentation for date of: 04/11/24 HPI History of Present Illness Chief complaint: Rt nephrostomy, right renal calculi History of present illness: Ms. Herrmann is a 83 year old female with Significant past medical history of hypertension, dyslipidemia, hypothyroidism, stroke, DVTs and pulmonary embolism on Eliquis and right nephrolithiasis s/p percutaneous nephrostomy (recently) presented with right-sided flank pain. During the last hospital admission, the patient was supposed to undergo ureteral stent placement with stone fragmentation and basketing, but she developed pressure-like chest pain just before the procedure. Anesthesiologist canceled the procedure stating that the patient will require further cardiology clearance before proceeding with the procedure. The patient admitted occasional nausea, denies any vomiting, fever or chills, headache, lightheadedness, chest pain, SOB, abdominal pain, any changes in bowel or bladder habit or leg swelling. The patient's vitals has been stable, CBC WNL, renal panel significant for YOLANDA with creatinine 1.3 with baseline creatinine of 1.0. BUN 29, GFR 41. CTA done on 04/06/2024 was significant for multiple small right lower lobe and left upper lobe pulmonary artery emboli. Abdomen CT 03/22/2024 significant for right hydronephrosis secondary to 4 x 8 mm proximal right ureteral calculus, and CT abdomen/pelvis on 03/25/2024 significant for right percutaneous nephrostomy tube satisfactory position, mild right hydronephrosis. The patient is admitted for right renal lithotripsy and basketing including cardiac clearance for the procedure. PMH: As mentioned above Family history: Non contributory Social history: Denies smoking, occasional alcohol use Medications: To be reconcilled Review of Systems Review of Systems Systems Reviewed: All systems reviewed, normal except as documented Past Medical History Past Medical History NEUROLOGIC: Positive Neurological Disorders, Cerebrovascular Accident, Subdural Hematoma and Migraine; Negative Seizures CARDIAC: Positive Heart Murmur, Hypercholesterolemia, Deep Vein Thrombosis and Hypertension; Negative Cardiac Disorders or Congestive Heart Failure RESPIRATORY: Positive Pneumonia and Pulmonary Embolism; Negative Chronic Obstructive Pulmonary Disease (COPD), Asthma or Sleep Apnea GASTROINTESTINAL: Positive Hepatitis; Negative Gastrointestinal Disorders GENITOURINARY: Positive Genitourinary Disorders and Kidney Stones; Negative Renal Disease REPRODUCTIVE: Positive Previous Pregnancies MUSCULOSKELETAL: Positive Musculoskeletal Disorders, Arthritis and Gout ENT: Negative History of ENT Problems ENDOCRINE: Positive Endocrine Disorders and Hypothyroidism; Negative Diabetes Mellitus Type 1 or Diabetes Mellitus Type 2 HEMATOLOGIC: Positive Blood Disorders and Anemia; Negative Sickle Cell Disease PSYCHO/SOCIAL: Positive Depression and Anxiety OTHER HISTORY: Positive Hospitalization, Shingles, Chicken Pox, Measles and Rubella ([place] Measles); Negative Autoimmune Disease, Blood Transfusions, Blood Transfusion Reaction, Anesthesia Reactions or Cancer Family History FAMILY HISTORY: Positive Family Cardiac Disorders and Family Cancer; Negative Family Psychiatric Problems, Family Respiratory Disorders, Family Gastrointestinal Problems, Family Surgery or Family Anesthesia Reaction Surgical History SURGICAL: Positive Tonsillectomy and Hysterectomy Social History SMOKING STATUS: Never smoker SECOND HAND EXPOSURE: No SUBSTANCE USE: does not use ALCOHOL LAST INTAKE: Days (ago) Exam Narrative Exam General: No acute distress, Alert and Oriented x 3 HEENT: Moist mucous membranes, oropharynx clear Neck: Supple, No masses, No JVD CVS: S1S2 Regular rate and rhythm, No murmurs, rubs or gallops Lungs: Clear to auscultation with no accessory use, no wheeze no rhonchi Abd: Soft, NT/ND, +BS, no organomegaly. Right nephrostomy tube Ext: No edema, warm and well perfused Skin: No rash Psych: Appropriate mood and affect Results: Labs 04/13/24 05:05 04/12/24 05:48 Quality Measures Quality Measures VTE prophylaxis Advance care planning discussed with:: patient Medications Home Medications and Allergies Home Medications ?Medication ?Instructions ?Recorded ?Confirmed ?Type levothyroxine 50 mcg tablet 50 mcg PO QAM 12/15/18 04/11/24 History amlodipine 5 mg tablet 5 mg PO QDAY 12/18/21 04/11/24 History atenolol 50 mg tablet 50 mg PO QDAY 12/18/21 04/11/24 History atorvastatin 10 mg tablet 10 mg PO QDAY 12/18/21 04/11/24 History furosemide 20 mg tablet 20 mg PO QDAY 03/26/24 04/11/24 History Allergies Allergy/AdvReac Type Severity Reaction Status Date / Time acetaminophen (From Vicodin) Allergy Severe Rash Verified 04/12/24 12:33 hydrocodone (From Vicodin) Allergy Severe Rash Verified 04/12/24 12:33 nut - unspecified Allergy Severe Swelling Verified 04/12/24 12:33 of Lip/Tongue/Throat peanut Allergy Severe Swelling Verified 04/12/24 12:33 of Lip/Tongue/Throat latex Allergy Unknown RASH Verified 04/12/24 12:33 adhesive tape Allergy Verified 04/12/24 12:33 Visit Medications Heparin Sodium/Dextrose (Heparin In D5w Ivpb) 25,000 unit in 250 mls @ 10.777 mls/hr IV .[id number] [facility]; Protocol Stop: 04/25/24 15:14 Assessment & Plan Plan The patient is a 83 year old female with Significant past medical history of hypertension, dyslipidemia, hypothyroidism, stroke, DVTs and pulmonary embolism on Eliquis and right nephrolithiasis s/p percutaneous nephrostomy presented with right-sided flank pain is admitted for right renal lithotripsy and basketing including cardiac clearance for the procedure. #Right hydronephrosis 2/2 #Right ureteral calculus s/p percutaneous nephrostomy CTA done on 04/06/2024 was significant for multiple small right lower lobe and left upper lobe pulmonary artery emboli. Abdomen CT 03/22/2024 significant for right hydronephrosis secondary to 4 x 8 mm proximal right ureteral calculus, and CT abdomen/pelvis on 03/25/2024 significant for right percutaneous nephrostomy tube satisfactory position, mild right hydronephrosis. The patient is admitted for right renal lithotripsy and basketing including cardiac clearance for the procedure. -Urologist Dr. Del Rosario on board, appreciate recommendations -Scheduled for right nephro lithotripsy -Thursday -Pain management #Cardiac clearance On the previous hospital admission patient was found to have chest pain that was pressure-like developing just before the procedure was scheduled for right lithotripsy anesthesiologist wanted to get cardiac clearance before proceeding with surgical procedure. -Supervisor Sewer Maintenance Dr. Shaffer consulted, appreciate recommendations -TTE ordered -EKG ordered #YOLANDA Etiology currently unknown. More likely prerenal likely secondary to poor oral intake eating of recent illness with right hydronephrosis 2/2 right ureteral calculus DDx: Post renal likely due to hydronephrosis in the setting of right ureteral calculus, but would be more appropriate if bilateral hydronephrosis. -Encourage oral intake -Started on LR 80cc/hr -Avoid nephrotoxic drugs or contrast studies -Continue to monitor renal panel #Nonobstructive right lower lobe and left upper lobe pulmonary embolism 2/2 #DVTs Patient was found to have right lower lobe and left upper lobe pulmonary embolism demonstrated on CTA done on 04/06/2024, with multiple DVTs in the past Patient is on Eliquis at home -Started on heparin drip as patient is going to undergo surgical procedure #Hypothyroidism -Started on 50 mcg levothyroxine a severe #Essential hypertension -Started on atenolol 50 Mg daily and amlodipine 5 Mg daily, that are her home medicines #Hyperlipidemia -Started on home dose atorvastatin 10 Mg at bedtime daily Health maintenance: Dispo: Patient admitted to [facility]Sur unit for further management of right ureteral calculus Diet: Cardiac diet DVT prophylaxis: On heparin drip for pulmonary embolism and multiple DVTs CODE STATUS: Full code The patient's management plan was discussed with my attending physician MD Jimbo Haro MD, PGY2 Attending Provider Attestation/Addendum Patient seen and examined with resident physician Dr. Bell. Note reviewed, agree with findings and recommendations. Patient admitted for cardiac clearance and a right lithotripsy. Procedure was aborted last week for chest pain. CTA showed bilateral PE for which she is on Eliquis. Dr. Shaffer was consulted for cardiology clearance.
[2024-04-11 15:50] VITALS: PULSE 90; RESP 18; RESP 96
[2024-04-11 15:52] LABS: Basophils # (Auto) 0.1 Thou/mm3 (0.0-0.2); Basophils % (Auto) 1 % (0-2.5); Eosinophils # (Auto) 0.2 Thou/mm3 (0.0-0.5); Eosinophils % (Auto) 3 % (0-10); Hematocrit 45.6 % (36.0-46.0); Immature Granulocytes % (Auto) 1 % (0-0); Immature Granulocytes Auto 0.09 Thou/mm3 (0.00-0.00); Lymphocytes # (Auto) 1.7 Thou/mm3 (1.0-4.8); Lymphocytes % (Auto) 23 % (10-50); Mean Corpuscular HGB Conc 32.9 g/dl (31.0-37.0); Mean Corpuscular Hemoglobin 30.2 pg (25.0-35.0); Mean Corpuscular Volume 92 fL (80-100); Monocytes # (Auto) 1.1 Thou/mm3 (0.0-0.8); Monocytes % (Auto) 14 % (0-12); Neutrophils # (Auto) 4.3 Thou/mm3 (1.8-7.7); Neutrophils % (Auto) 58 % (37-80); Nucleated Red Blood Cell % 0 /100 WBC (0); Platelet Count 183 Thou/mm3 (140-440); Red Blood Count 4.97 Miln/mm3 (4.00-5.20); White Blood Count 7.3 Thou/mm3 (3.6-11.0)
[2024-04-11 16:00] VITALS: BP 127/78; RESP 17; TEMP 36.9; O2SAT 95
[2024-04-11 16:10] LABS: Partial Thromboplastin Time 28.6 Seconds (22.0-36.0)
[2024-04-11 16:12] LABS: Albumin, Serum 4.5 gm/dL (3.4-4.8); Anion Gap 10 (7-16); BUN/Creatinine Ratio 22 Ratio (12-20); Blood Urea Nitrogen 29 mg/dL (9-23); Calcium 9.9 mg/dL (8.3-10.6); Calcium (Corrected) 9.9 mg/dL (8.5-10.1); Carbon Dioxide 30.9 mMol/L (20.0-31.0); Chloride 100 mMol/L (98-107); Creatinine (Component) 1.3 mg/dL (0.6-1.3); Estimated Creatinine Clearance 26.3 mL/min (>60); Glucose 96 mg/dL (74-106); Osmolality,Calculated 287 (275-295); Phosphorous 3.9 mg/dL (2.4-5.1); Potassium 3.4 mMol/L (3.4-5.1); Sodium 141 mMol/L (136-145); eGFR 41 See Note
[2024-04-11] MEDS: Heparin/D5w 25K 250 ML Ivpb 25,000 UNIT/250 ML BAG 10.777 UNIT IV (16:13)
--- NOTE | 2024-04-11 16:15 | EKG_ITS ---
[facility] Test Date: 2024-04-11 Pat Name: ZENIA DIAZ [facility] 1940 Requested By: Jimob Bell Order Number: [id number] Reading MD: Jimbo Bell Measurements Intervals [place] Rate: 77 P: -11 WA: 147 QRS: -60 QRSD: 117 T: -9 QT: 387 QTc: 439 Interpretive Statements SINUS RHYTHM LOW QRS VOLTAGE IN PRECORDIAL LEADS [QRS DEFLECTION < 1.0 mV IN CHEST LEADS] RIGHT BUNDLE BRANCH BLOCK [120+ ms QRS DURATION, UPRIGHT V1, 40+ ms S IN I/aVL/V4/V5/V6] LEFT ANTERIOR FASCICULAR BLOCK [QRS AXIS <= -45, QR IN I, RS IN II] POSSIBLE ANTERIOR MYOCARDIAL INFARCTION , PROBABLY OLD [30 ms Q WAVE IN V3/V4, OR R < 0.2 mV IN V4] Compared to ECG 04/06/2024 10:26:22 Right bundle-branch block now present Myocardial infarct finding now present Incomplete right bundle-branch block no longer present /store/S0/[id number].pdf
[2024-04-11] MEDS: PANTOPRAZOLE INJ 40 MG VIAL IVP (17:23)
--- NOTE | 2024-04-11 17:27 | PC.NURSE ---
Called DR Perfecto Shaffer and informed about the consult, Per dr Aileen Del Rosario is already aware, she talked to Dr Del Rosario.
--- NOTE | 2024-04-11 19:49 | ESCONSULT_ITS ---
RE: ZENIA DIAZ : 1940 DATE OF CONSULTATION: 04/11/2024 CONSULTING PHYSICIANS: Vitaly Gallagher MD REASON FOR CONSULTATION: Evaluation of severe chest tightness, heaviness, abnormal EKG. Preop cardiac risk assessment for cystoscopy and ureteroscopy and laser lithotripsy. CHIEF COMPLAINT: Chest tightness, heaviness requiring cancellation of surgery last week. HISTORY OF PRESENT ILLNESS: The patient is an 83-year-old female known to me, has a longstanding history of hypertension, hypercholesterolemia, cardiac risk factor of CAD who had a bilateral extensive submassive pulmonary emboli in 09/2023, treated with apixaban 5 mg twice daily for the last 6 months, also developed kidney stones. Nephrostomy was placed. The patient was scheduled for cystoscopy and ureteral laser lithotripsy. Last week, apparently she WAS scheduled and she had severe crushing chest pain like an elephant sitting on her chest for several minutes. Nitroglycerin relieved the pain. EKG showed right bundle branch block, T-wave abnormalities, possible anterolateral ischemia, possible old anteroseptal GA, age undetermined. Surgery was canceled. The patient was sent back home. She was already on Eliquis. She came back to the hospital for elective admission for stopping Eliquis and starting on heparin prior to the procedure and scheduled for surgery for renal calculi on 04/13/2024. The patient had no further chest pain, but EKG was quite abnormal. She had right bundle branch block, T wave changes in precordial leads, poor R wave progression. The CT scan of the chest was repeated, showed what is described as multiple small pulmonary emboli, right lower lobe and left upper lobe. I looked at the CT myself, quite unimpressive. There maybe distal small sub branches having minor thrombi, not unusual for a patient who has had a pulmonary emboli 6 months ago to have some residual abnormal findings; however, main pulmonary arteries and all the major branches are all widely patent. I doubt very much that she has recurrent pulmonary embolism causing her symptoms, quite concerned about severe substantial discomfort requiring cancellation of surgery and abnormal EKG findings. The patient did have remote angiogram more than 15 or 20 years ago negative, but not had a cardiac workup for several years except for a pulmonary embolism. She has been in fairly good health, also had multiple risk factors. MEDICATIONS: At home, she is on amlodipine 5 mg daily for hypertension, furosemide 20 mg daily, levothyroxine 50 mcg daily, atenolol 50 mg daily, apixaban 5 mg twice daily and Tylenol with codeine for pain. PAST MEDICAL HISTORY: Hypertension, hypothyroidism, kidney stones, pulmonary embolism requiring hospitalization in 09/2023. SOCIAL HISTORY: The patient is fairly active. She does not smoke, drink alcoholic beverage. FAMILY HISTORY: Noncontributory. REVIEW OF SYSTEMS: Cardiovascular: Chest tightness at rest, unstable crescendo angina pectoris. GI: No history of nausea or vomiting. : History of kidney stones with pain and hematuria. PHYSICAL EXAMINATION: GENERAL: Shows a thin built, well-nourished female, alert, awake, in no acute distress. VITAL SIGNS: Blood pressure is 127/78, pulse rate is 70, respirations 16, temperature 98.5, saturation 95% on room air. HEENT: Head is atraumatic and normocephalic. Eyes, normal. ENT, normal. NECK: Supple. No JVD. Carotid pulse felt, but no bruising. CHEST: Symmetrical. LUNGS: Clear. HEART: S1 and S2 regular: No gallops. ABDOMEN: Thin and soft. EXTREMITIES: No edema. /RECTAL: Not performed. PRACTICE NURSE: Normal. DIAGNOSTIC DATA: Electrocardiogram shows sinus rhythm, right bundle branch block, poor R-wave progression in precordial leads, nonspecific T-wave inversion in pericardial leads. IMPRESSION/ASSESSMENT: 1. Recurrent episodes of substantial chest tightness at rest, crescendo class IV angina pectoris with abnormal EKG showing anteroseptal myocardial infarction, T-wave inversions and right bundle branch block. 2. Kidney stones, renal calculi with nephrostomy, scheduled for surgery in two days. 3. History of pulmonary embolism in 09/2023 with some residual distal thrombi left over mostly negative in CT. RECOMMENDATIONS: The patient I am concerned about significant CAD especially considering her severe chest tightness at rest a week ago and also abnormal findings on EKG. given her significant CAD, hence the coronary angiogram will be performed in the morning. If the angiogram showed no significant CAD, we will go ahead and clear the patient with significant CAD involving proximal vessels. We will do PCI and then clear the patient for surgery. We would like to thank for referring this patient for cardiovascular evaluation. We will be glad to follow this patient with you. DT: 18:15:38 TT: 19:23:00 Ref: [id number] - TID: [id number]
[2024-04-11 20:00] VITALS: BP 121/77; PULSE 87; RESP 17; TEMP 36.7; O2SAT 93
[2024-04-11] MEDS: ATORVASTATIN CALCIUM 10 MG TABLET PO (20:45)
[2024-04-11] MEDS: RINGERS LACTATED 1000 ML 1,000 ML 80 ML IV (20:45)
[2024-04-11 21:35] VITALS: PULSE 98; RESP 19; RESP 97
[2024-04-11 23:38] LABS: Partial Thromboplastin Time 84.6 Seconds (22.0-36.0)
[2024-04-12] VITALS (17 sets, daily range): BP systolic 107–146; BP diastolic 60–99; PULSE 68–90; RESP 11–94; TEMP 36.1–36.7; O2SAT 93–99
[2024-04-12 06:21] LABS: Basophils # (Auto) 0.1 Thou/mm3 (0.0-0.2); Basophils % (Auto) 1 % (0-2.5); Eosinophils # (Auto) 0.4 Thou/mm3 (0.0-0.5); Eosinophils % (Auto) 6 % (0-10); Hematocrit 40.4 % (36.0-46.0); Hemoglobin 13.3 g/dL (12.0-16.0); Immature Granulocytes % (Auto) 2 % (0-0); Immature Granulocytes Auto 0.13 Thou/mm3 (0.00-0.00); Lymphocytes # (Auto) 1.8 Thou/mm3 (1.0-4.8); Lymphocytes % (Auto) 28 % (10-50); Mean Corpuscular HGB Conc 32.9 g/dl (31.0-37.0); Mean Corpuscular Volume 91 fL (80-100); Monocytes # (Auto) 0.9 Thou/mm3 (0.0-0.8); Monocytes % (Auto) 14 % (0-12); Neutrophils # (Auto) 3.2 Thou/mm3 (1.8-7.7); Neutrophils % (Auto) 50 % (37-80); Nucleated Red Blood Cell % 0 /100 WBC (0); Platelet Count 163 Thou/mm3 (140-440); RDW Standard Deviation 46.2 fL (36.4-46.3); Red Blood Count 4.44 Miln/mm3 (4.00-5.20); White Blood Count 6.4 Thou/mm3 (3.6-11.0)
[2024-04-12 07:05] LABS: Alanine Aminotransferase 9 U/L (10-49); Albumin, Serum 3.8 gm/dL (3.4-4.8); Albumin/Globulin Ratio 1.6 (1.2-2.2); Alkaline Phosphatase 61 U/L (46-116); Anion Gap 8 (7-16); Aspartate Amino Transferase 15 U/L (0-34); BUN/Creatinine Ratio 25 Ratio (12-20); Bilirubin,Total 0.7 mg/dL (0.3-1.2); Blood Urea Nitrogen 25 mg/dL (9-23); Calcium (Corrected) 9.2 mg/dL (8.5-10.1); Carbon Dioxide 29.7 mMol/L (20.0-31.0); Chloride 104 mMol/L (98-107); Estimated Creatinine Clearance 34.1 mL/min (>60); Globulin 2.4 gm/dL (2.3-3.5); Glucose 93 mg/dL (74-106); Magnesium 1.7 mg/dL (1.6-2.6); Osmolality,Calculated 287 (275-295); Phosphorous 2.9 mg/dL (2.4-5.1); Potassium 3.7 mMol/L (3.4-5.1); Sodium 142 mMol/L (136-145); Thyroid Stimulating Hormone 5.65 uIU/mL (0.55-4.78); Total Protein 6.2 gm/dL (5.7-8.2); eGFR 56 See Note
[2024-04-12 07:21] LABS: Cardiac Risk Estimate 2.5 RATIO (3.7-5.6); Cholesterol 116 mg/dL (132-200); HDL Cholesterol 47 mg/dL (40-60); LDL Cholesterol,Calculated 54 mg/dL (0-130); Triglycerides 73 mg/dL (30-150)
[2024-04-12 07:25] LABS: Partial Thromboplastin Time 104.9 Seconds (22.0-36.0)
[2024-04-12] MEDS: PANTOPRAZOLE INJ 40 MG VIAL IVP (08:17)
[2024-04-12 08:41] LABS: INR 1.2 (0.9-1.3); Prothrombin Time 12.6 Seconds (9.0-12.2)
--- NOTE | 2024-04-12 09:42 | ESPR_ITS ---
Documentation for date of: 04/12/24 Subjective Subjective Interval history: The patient is a 83 year old female with Significant past medical history of hypertension, dyslipidemia, hypothyroidism, stroke, DVTs and pulmonary embolism on Eliquis and right nephrolithiasis s/p percutaneous nephrostomy presented with right-sided flank pain. During the last hospital admission, the patient was supposed to undergo ureteral stent placement with stone fragmentation and basketing, but she developed pressure-like chest pain just before the procedure. Anesthesiologist canceled the procedure stating that the patient will require further cardiology clearance before proceeding with the procedure. The patient admitted occasional nausea, denies any vomiting, fever or chills, headache, lightheadedness, chest pain, SOB, abdominal pain, any changes in bowel or bladder habit or leg swelling. The patient's vitals has been stable, CBC WNL, renal panel significant for YOLANDA with creatinine 1.3 with baseline creatinine of 1.0. BUN 29, GFR 41. CTA done on 04/06/2024 was significant for multiple small right lower lobe and left upper lobe pulmonary artery emboli. Abdomen CT 03/22/2024 significant for right hydronephrosis secondary to 4 x 8 mm proximal right ureteral calculus, and CT abdomen/pelvis on 03/25/2024 significant for right percutaneous nephrostomy tube satisfactory position, mild right hydronephrosis. The patient is admitted for right renal lithotripsy and basketing including cardiac clearance for the procedure. 04/12/24: The patient reported doing well. Her vitals are fairly stable, labs revealed BUN 25 and Cr 1.0, GFR 56. Cholesterol 116, HDL 47 and TSH 5.65. She is planned to undergo cardiac cath by Dr. Shaffer this morning and after which she will get cardiac clearane. She will undergo the urological procedure tomorrow if cleared by Dr. Shaffer. Exam Vital Signs Temp Pulse Resp BP Pulse Ox O2 Del Method 97.5 F 71 18 146/81 H 98 Room Air 04/12/24 07:36 04/12/24 07:36 04/12/24 07:36 04/12/24 07:36 04/12/24 07:36 04/12/24 07:36 Narrative Exam General: No acute distress, Alert and Oriented x 3 HEENT: Moist mucous membranes, oropharynx clear Neck: Supple, No masses, No JVD CVS: S1S2 Regular rate and rhythm, No murmurs, rubs or gallops Lungs: Clear to auscultation with no accessory use, no wheeze no rhonchi Abd: Soft, NT/ND, +BS, no organomegaly Ext: No edema, warm and well perfused Skin: No rash Psych: Appropriate mood and affect Objective Labs 04/13/24 05:05 04/12/24 05:48 Labs: Laboratory Results - last 24 hr 04/11/24 04/11/24 04/12/24 15:15 22:15 05:48 WBC 7.3 6.4 RBC 4.97 4.44 Hgb 15.0 13.3 Hct 45.6 40.4 MCV 92 91 MCH 30.2 30.0 MCHC 32.9 32.9 RDW Std Deviation 46.0 46.2 Plt Count 183 D 163 Neut % (Auto) 58 50 Lymph % (Auto) 23 28 [place] % (Auto) 14 H 14 H Eos % (Auto) 3 6 Baso % (Auto) 1 1 Neut # (Auto) 4.3 3.2 Lymph # (Auto) 1.7 1.8 [place] # (Auto) 1.1 H 0.9 H Eos # (Auto) 0.2 0.4 Baso # (Auto) 0.1 0.1 Immature Gran # (Auto) 0.09 H 0.13 H Absolute Nucleated RBC 0.00 0.00 Immature Gran % 1 H 2 H Nucleated RBC % 0 0 PT 12.6 H INR 1.2 APTT 28.6 84.6 H D 104.9 H* D Sodium 141 142 Potassium 3.4 3.7 Chloride 100 104 Carbon Dioxide 30.9 29.7 Anion Gap 10 8 BUN 29 H 25 H Creatinine 1.3 1.0 Estim Creat Clear Calc 26.3 L 34.1 L eGFR 41 L 56 L BUN/Creatinine Ratio 22 H 25 H Glucose 96 93 Calculated Osmolality 287 287 Calcium 9.9 9.0 Corrected Calcium 9.9 9.2 Phosphorus 3.9 2.9 Magnesium 1.7 Total Bilirubin 0.7 AST 15 ALT 9 L Alkaline Phosphatase 61 Total Protein 6.2 Albumin 4.5 3.8 D Globulin 2.4 Albumin/Globulin Ratio 1.6 Triglycerides 73 Cholesterol 116 L LDL Cholesterol, Calc 54 HDL Cholesterol 47 Cholesterol/HDL Ratio 2.5 L TSH 5.65 H D Quality Measures Quality Measures VTE prophylaxis Advance care planning discussed with:: patient Assessment & Plan Assessment Current Active Medications: Generic Name Dose Route Start Last Admin Trade Name Freq PRN Reason Stop Dose Admin Amlodipine Besylate 5 mg 04/12/24 09:00 Amlodipine Besylate 5 Mg Tablet PO 05/12/24 08:59 QDAY CHRIS Atenolol 50 mg 04/12/24 09:00 Atenolol 25 Mg Tablet PO 05/12/24 08:59 QAM CHRIS Atorvastatin Calcium 10 mg 04/11/24 21:00 04/11/24 20:45 Atorvastatin Calcium 10 Mg Tablet PO 05/11/24 20:59 10 mg HS CHRIS Administration Heparin Sodium/Dextrose 25,000 unit in 250 mls @ 10.777 mls/hr 04/11/24 16:15 04/11/24 23:42 Heparin In D5w Ivpb IV 04/25/24 16:14 16 units/kg/hr .[id number] CHRIS 9.58 mls/hr Titration Protocol 18 UNITS/KG/HR Levothyroxine Sodium 50 mcg 04/12/24 06:00 04/12/24 05:17 Levothyroxine Sodium 25 Mcg Tablet PO 05/12/24 05:59 Not Given ACBR CHRIS Melatonin 3 mg 04/11/24 16:51 Melatonin 3 Mg Tablet PO 05/11/24 20:59 HS PRN insomnia Pantoprazole Sodium 40 mg 04/11/24 16:30 04/12/24 08:17 Pantoprazole Inj 40 Mg Vial IVP 05/11/24 16:29 40 mg QDAY CHRIS Administration Plan The patient is a 83 year old female with Significant past medical history of hypertension, dyslipidemia, hypothyroidism, stroke, DVTs and pulmonary embolism on Eliquis and right nephrolithiasis s/p percutaneous nephrostomy presented with right-sided flank pain is admitted for right renal lithotripsy and basketing including cardiac clearance for the procedure. #Right hydronephrosis 2/2 #Right ureteral calculus s/p percutaneous nephrostomy CTA done on 04/06/2024 was significant for multiple small right lower lobe and left upper lobe pulmonary artery emboli. Abdomen CT 03/22/2024 significant for right hydronephrosis secondary to 4 x 8 mm proximal right ureteral calculus, and CT abdomen/pelvis on 03/25/2024 significant for right percutaneous nephrostomy tube satisfactory position, mild right hydronephrosis. The patient is admitted for right renal lithotripsy and basketing including cardiac clearance for the procedure. -Urologist Dr. Del Rosario on board, appreciate recommendations -Scheduled for right nephro lithotripsy morning -Pain management #Cardiac clearance On the previous hospital admission patient was found to have chest pain that was pressure-like developing just before the procedure was scheduled for right lithotripsy anesthesiologist wanted to get cardiac clearance before proceeding with surgical procedure. -Wildlife Technician Dr. Shaffer consulted, and has planned for cardiac cath this morning. -TTE ordered -EKG ordered revealed RBBB with left anterior fascicular block #YOLANDA, Improved Etiology currently unknown. More likely prerenal likely secondary to poor oral intake eating of recent illness with right hydronephrosis 2/2 right ureteral calculus DDx: Post renal likely due to hydronephrosis in the setting of right ureteral calculus, but would be more appropriate if bilateral hydronephrosis. -Encourage oral intake -DC LR 80cc/hr, will add after cardiac cath to prevent contrast induced nephropathy. -Avoid nephrotoxic drugs -Continue to monitor renal panel #Nonobstructive right lower lobe and left upper lobe pulmonary embolism 2/2 #DVTs Patient was found to have right lower lobe and left upper lobe pulmonary embolism demonstrated on CTA done on 04/06/2024, with multiple DVTs in the past Patient is on Eliquis at home -Started on heparin drip as patient is going to undergo surgical procedure #Hypothyroidism TSH 5.65 is WNL as per her age. -Started on 50 mcg levothyroxine which is her home dose. #Essential hypertension -Started on atenolol 50 Mg daily and amlodipine 5 Mg daily, that are her home medicines #Hyperlipidemia -Started on home dose atorvastatin 10 Mg at bedtime daily Health maintenance: Dispo: Patient admitted to MedSur unit for further management of right ureteral calculus, pending cardiac clearance Diet: Cardiac diet DVT prophylaxis: On heparin drip for pulmonary embolism and multiple DVTs CODE STATUS: Full code The patient's management plan was discussed with my attending physician MD Jimbo Haro MD, PGY2 Attending Provider Attestation/Addendum Patient seen and examined with resident physician Dr. Bell. Note reviewed, agree with findings and recommendations. Patient admitted for cardiac clearance and a right lithotripsy. Procedure was aborted last week for chest pain. CTA showed bilateral PE for which she is on Eliquis. Dr. Shaffer was consulted for cardiology clearance. 04/12/2024 patient seen in recovery room. S/p cardiac cath with clean coronaries. Dr. Salazar cleared her for surgery. Patient will be going for lithotripsy and stent placement tomorrow by Dr. Saldaña. I informed him of the findings. Medically cleared for surgery. Will hold off on Eliquis and resume post lithotripsy tomorrow. Continue with gentle fluids
--- NOTE | 2024-04-12 13:27 | PC.NURSE ---
1250 patient is awake, alert, breathing unlabored, s/p LHC by Dr. Shaffer, TR band to right wrist, no bleeding or hematoma noted. right nephrostomy tube present, no drainage at this time. 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 Ok to discontinue Heparin drip.
--- NOTE | 2024-04-12 13:33 | PC.NURSE ---
7823 patient awake, alert, breathing unlabored, able to tolerate sandwich and fruit with no nausea or vomiting, report given to Rhoda SPEAR
--- NOTE | 2024-04-12 19:32 | ESPR_ITS ---
RE: ZENIA DIAZ : 1940 DATE OF SERVICE: 04/12/2024 This is an 83-year-old female. She is admitted in the hospital. She had placement of right nephrostomy tube. I went to see the patient twice. She was not in the room. I talked to Dr. Perfecto Shaffer who is the technical writing lead/mgr. She is cleared for the procedure tomorrow and I am going to see the patient tomorrow morning before the procedure. DT: 16:15:09 TT: 19:31:00 Ref: [id number] - TID: [id number]
[2024-04-12] MEDS: ATORVASTATIN CALCIUM 10 MG TABLET PO (20:30)
[2024-04-12] MEDS: MELATONIN 3 MG TABLET PO (20:31)
[2024-04-13] VITALS (15 sets, daily range): BP systolic 90–132; BP diastolic 57–78; PULSE 57–87; RESP 15–97; TEMP 35.6–37.1; O2SAT 94–100
--- NOTE | 2024-04-13 01:17 | ESOP_ITS ---
RE: ZENIA DIAZ : 1940 DATE OF OPERATION: 04/12/2024 PROCEDURE PERFORMED: 1. Diagnostic left heart cardiac catheterization, selective coronary angiogram, left ventricular angiogram, CPT 69785. 2. Conscious sedation 30 minutes duration. DIAGNOSES: Crescendo angina pectoris, preop cardiac clearance, unstable angina pectoris, recurrent chest pain at rest. HISTORY AND INDICATIONS: The patient is an 83-year-old with history of hypertension, hypercholesterolemia and recurrent episodes of chest tightness. Last week, she was scheduled for the cystoscopy and was found to have severe chest pain and cancelled the procedure, history of pulmonary embolism in the past as well. Because of abnormal EKG and recurrent chest pain at rest, coronary angiography was recommended prior to giving cardiac clearance for cystoscopy and anesthesia. DESCRIPTION OF PROCEDURE: The patient was brought to cardiac catheterization laboratory. She was given 2 mg of Versed and 50 mcg of fentanyl for sedation. Right radial approach was taken. Right radial artery was cannulated by micropuncture technique, 5-Sinhala Glidesheath was introduced. Selective right and left coronary angiogram, left heart catheterization, LV angiogram performed by TIG-4 diagnostic catheter. The patient tolerated the procedure well. No complications. Cardiac catheterization showed following findings. Left ventricular pressure is 110/10, aortic pressure 110/70. No gradient across the aortic valve. Left ventricular angiogram showed normal left ventricular wall motion, ejection fraction 70%. Coronary angiogram showed following findings. Right coronary artery is large and dominant giving off PDA, EL branch appeared normal. Left coronary system: Left main coronary artery is normal. Left anterior descending artery normal. Circumflex artery is normal. SUMMARY OF FINDINGS: 1. Normal nonobstructive epicardial coronary arteries. 2. Normal left ventricular systolic function, EF 70% RECOMMENDATIONS: The patient will be reassured about the absence of significant obstructive coronary artery disease. He is at low risk for surgery given cardiac clearance for surgery scheduled for tomorrow. DT: 00:37:27 TT: 01:16:00 Ref: [id number] - TID: [id number]
[2024-04-13 06:07] LABS: Basophils # (Auto) 0.1 Thou/mm3 (0.0-0.2); Basophils % (Auto) 1 % (0-2.5); Eosinophils # (Auto) 0.4 Thou/mm3 (0.0-0.5); Eosinophils % (Auto) 5 % (0-10); Hemoglobin 13.9 g/dL (12.0-16.0); Immature Granulocytes % (Auto) 1 % (0-0); Immature Granulocytes Auto 0.08 Thou/mm3 (0.00-0.00); Lymphocytes # (Auto) 1.3 Thou/mm3 (1.0-4.8); Lymphocytes % (Auto) 18 % (10-50); Mean Corpuscular HGB Conc 33.1 g/dl (31.0-37.0); Mean Corpuscular Hemoglobin 29.9 pg (25.0-35.0); Mean Corpuscular Volume 90 fL (80-100); Monocytes # (Auto) 0.9 Thou/mm3 (0.0-0.8); Monocytes % (Auto) 12 % (0-12); Neutrophils # (Auto) 4.8 Thou/mm3 (1.8-7.7); Neutrophils % (Auto) 64 % (37-80); Nucleated Red Blood Cell % 0 /100 WBC (0); Platelet Count 180 Thou/mm3 (140-440); RDW Standard Deviation 45.7 fL (36.4-46.3); Red Blood Count 4.65 Miln/mm3 (4.00-5.20); White Blood Count 7.5 Thou/mm3 (3.6-11.0)
[2024-04-13 07:14] LABS: Alanine Aminotransferase 11 U/L (10-49); Albumin, Serum 3.9 gm/dL (3.4-4.8); Albumin/Globulin Ratio 1.6 (1.2-2.2); Alkaline Phosphatase 67 U/L (46-116); Anion Gap 7 (7-16); Aspartate Amino Transferase 13 U/L (0-34); BUN/Creatinine Ratio 23 Ratio (12-20); Bilirubin,Total 0.8 mg/dL (0.3-1.2); Blood Urea Nitrogen 18 mg/dL (9-23); Calcium 9.1 mg/dL (8.3-10.6); Calcium (Corrected) 9.2 mg/dL (8.5-10.1); Carbon Dioxide 28.4 mMol/L (20.0-31.0); Chloride 104 mMol/L (98-107); Creatinine (Component) 0.8 mg/dL (0.6-1.3); Estimated Creatinine Clearance 42.7 mL/min (>60); Globulin 2.5 gm/dL (2.3-3.5); Glucose 91 mg/dL (74-106); Magnesium 1.8 mg/dL (1.6-2.6); Osmolality,Calculated 279 (275-295); Phosphorous 3.1 mg/dL (2.4-5.1); Potassium 4.1 mMol/L (3.4-5.1); Sodium 139 mMol/L (136-145); Total Protein 6.4 gm/dL (5.7-8.2); eGFR > 60 See Note
--- NOTE | 2024-04-13 07:51 | XR_ITS ---
Examination: Retrograde pyelogram right with without KUB Fluoroscopy 2. Spot fluoroscopic abdomen films Exam date and time: April 13, 2024 1039 hours INDICATIONS: History right percutaneous surf ostomy tube, ureteral stent placement today TECHNIQUE AND FINDINGS: 2 spot fluoroscopic abdomen films Subtle opacification in the right renal collecting system Right ureteral stent satisfactory position Fluoroscopy 42 seconds radiation dose 3.89 milligray IMPRESSION: Right retrograde pyelogram as above
[2024-04-13] MEDS: atenoloL 25 MG TABLET 50 MG PO (08:11)
--- NOTE | 2024-04-13 09:00 | PD.RESPRO ---
Documentation for date of: 04/13/24 Subjective Subjective Interval history: Will get lithotripsy today. Exam Vital Signs Temp Pulse Resp BP Pulse Ox O2 Del Method 97.9 F 77 18 111/78 94 L Room Air 04/13/24 07:43 04/13/24 08:11 04/13/24 07:47 04/13/24 08:11 04/13/24 07:43 04/13/24 03:56 Objective Labs 04/13/24 05:05 04/13/24 05:05 Labs: Laboratory Results - last 24 hr 04/13/24 05:05 WBC 7.5 RBC 4.65 Hgb 13.9 Hct 42.0 MCV 90 MCH 29.9 MCHC 33.1 RDW Std Deviation 45.7 Plt Count 180 Neut % (Auto) 64 Lymph % (Auto) 18 Alexander % (Auto) 12 Eos % (Auto) 5 Baso % (Auto) 1 Neut # (Auto) 4.8 Lymph # (Auto) 1.3 Alexander # (Auto) 0.9 H Eos # (Auto) 0.4 Baso # (Auto) 0.1 Immature Gran # (Auto) 0.08 H Absolute Nucleated RBC 0.00 Immature Gran % 1 H Nucleated RBC % 0 Sodium 139 Potassium 4.1 Chloride 104 Carbon Dioxide 28.4 Anion Gap 7 BUN 18 Creatinine 0.8 Estim Creat Clear Calc 42.7 L eGFR > 60 BUN/Creatinine Ratio 23 H Glucose 91 Calculated Osmolality 279 Calcium 9.1 Corrected Calcium 9.2 Phosphorus 3.1 Magnesium 1.8 Total Bilirubin 0.8 AST 13 ALT 11 Alkaline Phosphatase 67 Total Protein 6.4 Albumin 3.9 Globulin 2.5 Albumin/Globulin Ratio 1.6 Quality Measures Quality Measures VTE prophylaxis Assessment & Plan Assessment Current Active Medications: Generic Name Dose Route Start Last Admin Trade Name Freq PRN Reason Stop Dose Admin Amlodipine Besylate 5 mg 04/12/24 09:00 04/12/24 15:39 Amlodipine Besylate 5 Mg Tablet PO 05/12/24 08:59 Not Given QDAY CHRIS Atenolol 50 mg 04/12/24 09:00 04/13/24 08:11 Atenolol 25 Mg Tablet PO 05/12/24 08:59 50 mg QAM CHRIS Administration Atorvastatin Calcium 10 mg 04/11/24 21:00 04/12/24 20:30 Atorvastatin Calcium 10 Mg Tablet PO 05/11/24 20:59 10 mg HS CHRIS Administration Levothyroxine Sodium 50 mcg 04/12/24 06:00 04/13/24 05:05 Levothyroxine Sodium 25 Mcg Tablet PO 05/12/24 05:59 Not Given ACBR CHRIS Melatonin 3 mg 04/11/24 16:51 04/12/24 20:31 Melatonin 3 Mg Tablet PO 05/11/24 20:59 3 mg HS PRN Administration insomnia Pantoprazole Sodium 40 mg 04/11/24 16:30 04/12/24 08:17 Pantoprazole Inj 40 Mg Vial IVP 05/11/24 16:29 40 mg QDAY CHRIS Administration
--- NOTE | 2024-04-13 09:50 | PD.RESDS ---
Planned Discharge Date 04/13/24 DS: Providers Provider Date of admission: 04/11/24 13:45 Primary care physician: Vitaly Gallagher MD Admitting Provider: Vitaly Gallagher MD Attending Provider on Admission: Vitaly Gallagher MD Consults: 04/11/24 14:13 Consult to Nephrology Routine Comment: renal calculi, nephrostomy Consulting Provider: Puja Del Rosario 04/11/24 16:13 Consult to Cardiology Stat Comment: Cardiac clearance for urological procedure. 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 The patient was clinically safe to be discharged home. Her discharge plan was discussed with her and she agreed with the plans. Problems: #Right hydronephrosis 2/2 #Right ureteral calculus s/p percutaneous nephrostomy #YOLANDA, Improved #Nonobstructive right lower lobe and left upper lobe pulmonary embolism 2/2 #DVTs #Hypothyroidism #Essential hypertension #Hyperlipidemia Plans: Please follow-up with Dr. Gallagher within 1 to 2 weeks of discharge. Please follow-up with urologist Dr. Del Rosario in 3 week after discharge to remove stent. Please follow-up with pedodontist Dr. Shaffer within 1 to 2-week of discharge -Continue with all the medicines as prescribed before -Recommended to return back to emergency department if your symptoms persist or worsens The patient's discharge plan was discussed with my attending physician MD Jimbo Haro MD, PGY2 Time Spent with Patient Time attestation: Total time spent providing and/or coordinating discharge services: Greater than 35 minutes Exam Vital Signs Temp Pulse Resp BP Pulse Ox O2 Del Method 97.9 F 77 18 111/78 94 L Room Air 04/13/24 07:43 04/13/24 08:11 04/13/24 07:47 04/13/24 08:11 04/13/24 07:43 04/13/24 03:56 Narrative Exam General: No acute distress, Alert and Oriented x 3 HEENT: Moist mucous membranes, oropharynx clear Neck: Supple, No masses, No JVD CVS: S1S2 Regular rate and rhythm, No murmurs, rubs or gallops Lungs: Clear to auscultation with no accessory use, no wheeze no rhonchi Abd: Soft, NT/ND, +BS, no organomegaly Ext: No edema, warm and well perfused Skin: No rash Psych: Appropriate mood and affect Discharge Plan Plan Patient Disposition: HOME (Self Care) Care Plan Goals: Please follow-up with Dr. Gallagher within 1 to 2 weeks of discharge. Please follow-up with urologist Dr. Del Rosario in 3 week after discharge to remove stent. Please follow-up with pedodontist Dr. Shaffer within 1 to 2-week of discharge -Continue with all the medicines as prescribed before -Recommended to return back to emergency department if your symptoms persist or worsens Prescriptions/Referrals Prescriptions/Med Rec: Continued levothyroxine 50 mcg tablet 50 mcg PO QAM Patient Comments: TAKE 1 TABLET BY MOUTH EVERY DAY atorvastatin 10 mg tablet 10 mg PO QDAY Patient Comments: TAKE 1 TABLET BY MOUTH EVERY DAY amlodipine 5 mg tablet 5 mg PO QDAY Patient Comments: TAKE 1 TABLET BY MOUTH EVERY DAY atenolol 50 mg tablet 50 mg PO QDAY Patient Comments: TAKE 1 TABLET BY MOUTH EVERY DAY apixaban 5 mg tablet 5 mg PO BID 30 Days Qty: 60 0RF furosemide 20 mg Tablet 20 mg PO QDAY acetaminophen-codeine 300-30 mg tablet 2 tab PO TID MDD 6 PRN (Reason: pain) Qty: 20 0RF Referrals: Puja Del Rosario MD [Physician] - Trista Shaffer MD [Physician] - Vitaly Gallagher MD [Primary Care Provider] - Patient/Caregiver Discharge Instructions Discharge Activity: activity as tolerated Education Materials: Preventing Kidney Stones, Cardiac Catheterization Dc, Preventing Surgical Site Infections, Procedural Sedation, Cardiac Cath Transradial Print Language: Korean Activity Restrictions/Additional Instructions: Please call to Schedule a follow up appointment with Dr. Shaffer, (Community Cultural Development Officer), to be seen in his office within one week upon discharge Address: [facility] [place] [id number]. Please call to schedule a follow up appointment with your primary care doctor 1-2 weeks after discharge so he/she can make further recommendations about your overall health condition. DO NOT drive or operate any motor vehicle, heavy equipment, or machinery in the next 24 hours. DO NOT perform any activity that requires you to be fully alert in the next 24 hours. DO NOT sign any documentation in the next 24 hours that requires a full understanding of what you are signing for. Do not perform any strenuous physical activity in the next 5 days. Do not bend or twist your wrist for the next 3 days. Do no lift anything that weights equal or over 5 pounds with your right Arm/Hand within the next 3 days. Perform light activity only with your right Hand/Arm for the next 3 days. Do not strain your bowel. If you experience constipation, drink plenty of fluids, especially water, if not contraindicated by your doctor. In addition, add foods rich in fiber. Should you experience constipation, talk to your doctor about other options that might help you alleviate it. Keep your blood pressure under control. If you take blood pressure medication, continue to take it as prescribed, if not contraindicated by your doctor, doing so; helps to prevent post-complications such as bleeding. Take your new/previous medication as directed by the doctor. If there is no changes, continue to take medication at your usual time. After 3 days, start increasing the level of physical activity with your Hand/Arm gradually in the following 5 days. Look out for signs of infection such as tenderness, redness, or drainage to your right wrist. If any, report them to your primary care doctor immediately. You will go home with your right wrist covered by two different dressings, a clear dressing and a Coban wrap. The Coban wrap (Color Dressing on Top) must be removed in 24 hours after it was placed. The clear dressing (Dressing that is attached to your skin) Must be removed in 48 hours after it was placed. If you decide to shower or to take a bath, NOT RECOMMENDED IN THE FIRST 24 HOURS AFTER THE PROCEDURE; please keep dressing clean and dry by covering it. Or, if you prefer, take a sponge bath instead. After removing your dressing, you can gently clean your surgical site with soap and water and pad dry it. DO NOT rub site to prevent complication such as bleeding. DO NOT apply any lotions, creams, or powders on the surgical site until your skin completely heals (5 days or more). Should you experience any type of complications such as pain, change in color, change in temperature, a bruise that increases in size and color, a lump (Hard or soft) that develops and increases in size, numbness, or loss of sensation in your Right arm/Wrist, Chest pain, or shortness of breath; PLEASE GO TO THE NEAREST EMERGENCY ROOM IMMEDIATELY. Should you have any other questions or concerns on regards today?s procedure; feel free to contact us to [employer] . Please call to schedule a follow up appointment with your primary care doctor 1-2 weeks after discharge so he/she can make further recommendations about your overall health condition. It is important to follow a heart healthy diet. Avoid saturated fat foods and food and drinks with added sugar. Eat a well-balanced diet with plenty of fresh fruits, vegetables and whole grains if not contraindicated by your primary care provider. Choose water to hydrate yourself over any other type of drinks. Talk to your primary doctor for further advice for a diet that fits your nutritional body requirements and for an adequate exercise program to keep and improve your overall health condition. ALWAYS FOLLOW/CONSIDER YOUR PRIMARY CARE DOCTOR'S MEDICAL ADVICE BEFORE MAKING ANY CHANGES TO YOUR DIET OR LEVEL OF ACTIVITY. Should you have any other questions or concerns on regards today?s procedure; feel free to contact us to [employer] . Stand Alone Forms: Josi Award Info., Patient Portal Info Letter Discharge Order Discharge Orders: Discharge (Routine); Ordered 04/13/24 Ordered By: Jimbo Bell Quality Discharge Quality Measures VTE prophylaxis
--- NOTE | 2024-04-13 10:01 | ESOP_ITS ---
Date of Procedure 04/13/24 Pre Op Diagnosis 8 x 4 mm stone right proximal ureter, right hydronephrosis, s/p placement of nephrostomy tube right Post Op Diagnosis Same plus no stone is identified Procedure Cystoscopic examination right retrograde pyelogram placement of safety wire right, right digital flexible ureteroscopy, removal of right nephrostomy tube, placement of right ureteral stent in a retrograde fashion under fluoroscopic exa mination, size of the stent is a 24 cm long 6 Pashto double-J Findings S/p placement of nephrostomy tube right no stone identified Procedure Description Indication for procedure this is a 83-year-old female she was admitted in the hospital with right renal colic stone proximal right ureter 8 mm x 4 mm with hydronephrosis she had placement of nephrostomy tube right and she has been on anticoagulation because of DVT as she was recommended above procedure procedure and complications were discussed with the patient in great detail informed consent is obtained Patient was brought to the operating room in a satisfactory condition after appropriate premedication was put on the operating table in a supine position she was appropriately identified by surgeon and operating room staff site scope and indication of the procedure were reconfirmed with the patient Next general anesthesia was given uneventfully patient was positioned in a dorsal lithotomy position parts were prepped and draped in the usual sterile fashion. 21 cystoscope was used to do the cystourethroscopy at this time patient received perioperative antibiotics 20 mg of IV Lasix was given for prevention of pyelocalyceal infectious complications and diuresis. Cystoscope was introduced into the bladder per urethra examination of bladder in all the quadrant was carried out there was no tumor stone or diverticuli identified. Right ureteral orifice was identified I passed a open-ended Pollick catheter right ureter through the open-ended Pollick catheter under fluoroscopic examination I introduced the safety wire which curled up in the upper pole calyx. Next semirigid ureteroscope was used far dilation of the ureter.. Next I used flexible digital ureteroscope to do the ureteroscopy and examination of calyceal system. Flexible ureter ureteroscope was passed up to the upper pole calyx under fluoroscopic examination retrograde pyelogram was performed. There was no stone identified in the ureter. Examination of all the calyces revealed no stone. At this time I remove the flexible digital ureteroscope and next I remove the nephrostomy tube right side. Over the safety wire I placed 24 cm long 6 Pashto double-J stent proximal and in the upper pole calyx distal in the bladder bladder was emptied instrument was withdrawn gently patient after having tolerated the procedure well was sent to recovery room in a satisfactory condition she will be discharged home and she will see me in urology office in 3 weeks time for removal of the stent Anesthesia GETA Pathology / specimen None Estimated Blood Loss 0.5 Condition Stable Disposition PACU Surgeon Puja Del Rosario MD Surgical Staff Operation Date: 04/13/24 08:45 Case Staff Anesthesiologist: Benito Slade
--- NOTE | 2024-04-13 10:08 | SUR.PHASEI ---
0950: Pt received in Pac[facility] via gurney. Pt groggy, but awake. Resp even, unlabored. VS stable. Denies pain. New dressing applied to site of nephrostomy tube removal. Site without bleeding, hematoma. Vacomycin infusing with no untoward effects observed.
--- NOTE | 2024-04-13 10:18 | PC.SS ---
SS attempted to see pt at pt is in surgery. SS attempted to make over the phone contact with pt Alexis Ivory [phone], no answer. VM left. SS will re-attempt later.
--- NOTE | 2024-04-13 10:44 | SUR.PHASEI ---
1000: Pt stating she needed to void. Purwick external catheter placed. Pt resting with no other complaints voiced. Resp even, unlabored. VS stable. Dressing to right mid back is dry, clean, intact.
--- NOTE | 2024-04-13 11:09 | PC.SS ---
Elis Herrmann is 83-year-old female admitted to [facility] for R Renal Calculi. SS conducted bedside contact with the patient to complete initial assessment and to discuss discharge planning, pt was in a procedure therefore SS reached out via phone to pt Alexis Lozada [phone].? Alexis confirmed demographic information. He identifies himself as the pts surrogate decision maker. Patient resides at home him. Alexis states she is able to complete most ADL?s independently, they have a fww, rollator, wheelchair and 3in1 BSC. Per Alexis they have a private caregiver that sees them every day from [id number] and their dtr goes in the evening. Pharmacy of choice is [facility]. Pts son in law, will provide transportation upon DC. No further intervention required at this time, older adult social work specialist would be available to address any further concerns. DC Plan: Home Contact: Alexis Lozada [phone] PCP: Aileen
--- NOTE | 2024-04-13 11:36 | SUR.PHASEI ---
1050: Pt resting with no complaints voiced. Resp even, unlabored. VS stable. Denies pain. Purwick remains in place. Pt stated she could not relax enough to void laying down. Stated she will try when she gets to her room. Dressing to right mid back remains dry, clean, intact. Vancomycin continues to infuse with no untoward effects observed. 1100: Report to 3rd floor. Pt transferred to Rm 350.
[2024-04-13] MEDS: amLODIPine BESYLATE 5 MG TABLET PO (12:43)
--- NOTE | 2024-04-14 13:21 | PD.ANESPROG ---
Documentation for date of: 04/14/24 POST ANESTHESIA NOTE: Patient had GETA for her urologic procedure yesterday. I just called and spoke with her on the phone and she denied any problems from anesthesia and was thankful. Benito Slade MD Anesthesia Progress Note Progress Note Most recent Vital Signs: Last Vital Signs Temp 96.1 F L 04/13/24 12:00 Pulse 57 L 04/13/24 12:43 Resp 18 04/13/24 12:00 BP 131/73 H 04/13/24 12:43 Pulse Ox 97 04/13/24 12:00 O2 Del Method Room Air 04/13/24 12:00 O2 Flow Rate 2 04/13/24 10:20
== END 2024-04-13 14:09 | disposition home or self-care (01) | DRG 659 ==
PROVIDERS: Internal Medicine Cardiovascular Disease; Student in an Organized Health Care Education/Training Program; Urology; Admitting Provider Internal Medicine; PCP Internal Medicine; Visit Provider Internal Medicine
PROC: 0TJB8ZZ Inspection of Bladder, Via Natural or Artificial Opening Endoscopic (ICD-10-PCS; CPT 52000; principal; 2024-04-13 08:30)
DX: N13.2 Hydronephrosis with renal and ureteral calculous obstruction (principal); I26.99 Other pulmonary embolism without acute cor pulmonale; I25.110 Atherosclerotic heart disease of native coronary artery with unstable angina pectoris; I82.409 Acute embolism and thrombosis of unspecified deep veins of unspecified lower extremity; N17.9 Acute kidney failure, unspecified; I25.10 Atherosclerotic heart disease of native coronary artery without angina pectoris; I10 Essential (primary) hypertension; E78.00 Pure hypercholesterolemia, unspecified; E03.9 Hypothyroidism, unspecified; I45.10 Unspecified right bundle-branch block; I25.2 Old myocardial infarction; Z86.73 Personal history of transient ischemic attack (TIA), and cerebral infarction without residual deficits; Z87.442 Personal history of urinary calculi; Z79.01 Long term (current) use of anticoagulants; Z79.899 Other long term (current) drug therapy
CPT/HCPCS: 36415; 76000; 80053; 80061; 80069; 83735; 84100; 84443; 85025; 85610; 85730; 87081; 93005; 93225; J0171; J0461; J1580; J1643; J1644; J2250; J2310; J2371; J2470; J3010; J3370; J3490; J7120; A9270; J2305

== ENCOUNTER → 2024-05-03 | Outpatient (BNVA) | payer MEDICARE, BC, SELFPAY | END | disposition home or self-care (01) | PROVIDERS: PCP Internal Medicine; Referring Provider Internal Medicine; Visit Provider Urology | DX: N35.92 Unspecified urethral stricture, female (principal); Z96.0 Presence of urogenital implants; I10 Essential (primary) hypertension; E78.00 Pure hypercholesterolemia, unspecified; Z86.718 Personal history of other venous thrombosis and embolism; Z86.711 Personal history of pulmonary embolism; E03.9 Hypothyroidism, unspecified | CPT/HCPCS: 52281; 81003; 96372; A4217; A4649; C1894; J1580; A9270 ==

== ENCOUNTER → 2024-06-01 | Outpatient (CLI) | payer MEDICARE, BC, SELFPAY ==
[2024-06-01 11:04] LABS: Collection Type, Urine Clean Catch
[2024-06-01 11:36] LABS: Basophils % (Auto) 1 % (0-2.5); Eosinophils # (Auto) 0.2 Thou/mm3 (0.0-0.5); Eosinophils % (Auto) 4 % (0-10); Hematocrit 45.3 % (36.0-46.0); Hemoglobin 15.2 g/dL (12.0-16.0); Immature Granulocytes % (Auto) 1 % (0-0); Immature Granulocytes Auto 0.04 Thou/mm3 (0.00-0.00); Lymphocytes # (Auto) 1.2 Thou/mm3 (1.0-4.8); Lymphocytes % (Auto) 22 % (10-50); Mean Corpuscular HGB Conc 33.6 g/dl (31.0-37.0); Mean Corpuscular Hemoglobin 30.5 pg (25.0-35.0); Mean Corpuscular Volume 91 fL (80-100); Monocytes # (Auto) 0.7 Thou/mm3 (0.0-0.8); Monocytes % (Auto) 12 % (0-12); Neutrophils # (Auto) 3.3 Thou/mm3 (1.8-7.7); Neutrophils % (Auto) 61 % (37-80); Nucleated Red Blood Cell % 0 /100 WBC (0); Platelet Count 209 Thou/mm3 (140-440); Red Blood Count 4.98 Miln/mm3 (4.00-5.20); White Blood Count 5.5 Thou/mm3 (3.6-11.0)
[2024-06-01 11:46] LABS: Bacteria,Urine Rare; Bilirubin,Urine Negative (Negative); Blood,Urine Negative (Negative); Color,Urine Yellow (Lt Yel-Yel); Glucose, Urine Negative (Negative); Hyaline Casts,Urine < 1 /hpf (0-1); Ketones,Urine Negative (Negative); Leukocyte Esterase,Urine Positive (Negative); Nitrite,Urine Negative (Negative); Protein,Urine Trace (Neg - Trace); RBC,Urine 7 /hpf (0-3); Specific Gravity,Urine 1.023 (1.001-1.035); Squamous Epithelial Cell,Urine 4 /hpf (0-5); WBC,Urine 30 /hpf (0-5)
[2024-06-01 12:37] LABS: Albumin, Serum 4.4 gm/dL (3.4-4.8); Albumin/Globulin Ratio 1.9 (1.2-2.2); Alkaline Phosphatase 56 U/L (46-116); Anion Gap 9 (7-16); Aspartate Amino Transferase 21 U/L (0-34); BUN/Creatinine Ratio 22 Ratio (12-20); Bilirubin,Total 0.8 mg/dL (0.3-1.2); Blood Urea Nitrogen 26 mg/dL (9-23); Calcium 9.5 mg/dL (8.3-10.6); Calcium (Corrected) 9.5 mg/dL (8.5-10.1); Carbon Dioxide 30.2 mMol/L (20.0-31.0); Cardiac Risk Estimate 2.4 RATIO (3.7-5.6); Chloride 102 mMol/L (98-107); Cholesterol 148 mg/dL (132-200); Creatinine (Component) 1.2 mg/dL (0.6-1.3); Free T4 (Free Thyroxine) 1.46 ng/dL (0.89-1.76); Globulin 2.3 gm/dL (2.3-3.5); Glucose 89 mg/dL (74-106); HDL Cholesterol 61 mg/dL (40-60); LDL Cholesterol,Calculated 68 mg/dL (0-130); Osmolality,Calculated 284 (275-295); Potassium 4.2 mMol/L (3.4-5.1); Sodium 141 mMol/L (136-145); Thyroid Stimulating Hormone 1.29 uIU/mL (0.55-4.78); Total Protein 6.7 gm/dL (5.7-8.2); Triglycerides 93 mg/dL (30-150); eGFR 45 See Note
[2024-06-01 12:52] LABS: Alanine Aminotransferase 17 U/L (10-49); Bilirubin,Direct 0.2 mg/dL (0.0-0.3)
[2024-06-01 12:58] LABS: Clarity,Urine Hazy (Clear/Hazy)
== END | disposition home or self-care (01) ==
LOC: COPL 10:24
PROVIDERS: PCP Internal Medicine; Referring Provider Internal Medicine Cardiovascular Disease; Visit Provider Internal Medicine Cardiovascular Disease
DX: I10 Essential (primary) hypertension (principal); E78.5 Hyperlipidemia, unspecified; I20.9 Angina pectoris, unspecified; I49.9 Cardiac arrhythmia, unspecified
CPT/HCPCS: 36415; 80053; 80061; 81001; 82248; 84439; 84443; 85025

== ENCOUNTER → 2024-06-16 | Outpatient (CLI) | payer MEDICARE, BC, SELFPAY ==
--- NOTE | 2024-06-16 14:20 | XR_ITS ---
Examination: Bone densitometry Date and time of exam:June 16, 2024 1427 hrs. Indications: Postmenopausal, thyroid medication 8 years vitamin D 3 years, family history, mother osteoporosis, personal history of leukemia Technique: Lumbar spine and hip total bone mineralization values of an calculated. Peak reference and age match control results have been displayed. Findings: Lumbar spine total bone mineralization is 1.042 gm/cm2. This is 0.0 standard deviations at peak reference. This is 2.7 standard deviations above age-matched controls. Hip total bone mineralization is 0.882 gm/cm2 This is 0.5 standard deviations below peak reference. This is 1.7 standard deviations above age-matched controls Impression: There is normal mineralization based on lumbar spine measurements. There is osteopenia based on hip measurements Lumbar mineralization is increased 2.1% compared with 12/06/2021 Hip mineralization is decreased 1.6% compared with 12/06/2021
== END | disposition home or self-care (01) ==
PROVIDERS: PCP Internal Medicine; Referring Provider Internal Medicine; Visit Provider Internal Medicine
DX: M85.89 Other specified disorders of bone density and structure, multiple sites (principal)
CPT/HCPCS: 77080

== ENCOUNTER → 2024-07-11 | Outpatient (CLI) | payer MEDICARE, BC, SELFPAY ==
--- NOTE | 2024-07-11 13:00 | XR_ITS ---
Examination: Breast ultrasound complete, bilateral Date and time of exam: July 11, 2024 1319 hours INDICATIONS: Bilateral breast pain beginning several years ago history left breast biopsy negative several years ago Technique: Real-time grayscale ultrasonographic imaging bilateral breasts, including all 4 quadrants as well as nipple retroareolar and axillary regions. Findings: Sonographic images right breast 5:00 cyst 3 x 5 mm No solid nodules Sonographic images left breast 3:00 cyst 4 x 4 millimeter 2:00 irregular nodule lobular margins IMPRESSION: BI-RADS Category 4: Suspicious for malignancy Suspicious nodule left breast 2:00 position, biopsy is needed to exclude breast carcinoma, this mass is amenable to ultrasound-guided breast biopsy for diagnosis
--- NOTE | 2024-07-11 14:15 | XR_ITS ---
Examination: Screening digital mammography, bilateral Computer aided detection 3-D breast Tomosynthesis, bilateral Date and time of exam: July 11, 2024 1346 hours Compared to mammograms dating to February 07, 2015 Indication: Screening Technique: Nonmagnified MLO, CC views of the breasts to been obtained, reconstructed from 3-D Tomosynthesis images. R2 computer aided detection program utilized for evaluation of suspicious masses and/or abnormal calcifications. 3-D Tomosynthesis images obtained. Findings: The breasts are heterogeneously dense, which may obscure small masses 4 mm focal asymmetry inner upper left breast Benign calcifications Impression: BI-RADS Category 0: Incomplete: Need additional imaging evaluation Recommend follow-up spot tomographic views of 14 mm focal asymmetry inner upper left breast as well as left breast sonography to complete the workup.
== END | disposition home or self-care (01) ==
LOC: CDIM 12:52
PROVIDERS: PCP Internal Medicine; Referring Provider Internal Medicine; Visit Provider Internal Medicine
DX: Z12.31 Encounter for screening mammogram for malignant neoplasm of breast (principal); R92.8 Other abnormal and inconclusive findings on diagnostic imaging of breast; N64.89 Other specified disorders of breast; N63.21 Unspecified lump in the left breast, upper outer quadrant
CPT/HCPCS: 76641; 77063; 77067

== ENCOUNTER → 2024-08-24 | Outpatient (CLI) | payer MEDICARE, BC, SELFPAY ==
--- NOTE | 2024-08-24 12:30 | XR_ITS ---
Examination: Abdomen sonogram, complete Date and time of exam: August 24, 2024 1158 hours INDICATIONS: History borderline thickening gallbladder wall on ultrasound April 06, 2024, history right percutaneous nephrostomy on CT abdomen April 06, 2024. Technique: Multiple real-time grayscale transabdominal sonographic images of the abdomen have been obtained. Findings: Normal gallbladder Normal common bile duct 0.4 cm Pancreatic head 1.7 cm Aorta not enlarged Liver 12.3 cm irregular contour Normal hepatopedal portal venous flow Patent IVC Right kidney 8.1 cm cortex 1.7 cm Left kidney 9.3 cm cortex 1.4 cm 6 mm upper pole left renal calculus Mild left hydronephrosis Spleen 7.3 cm IMPRESSION: Normal gallbladder Normal common bile duct Suspect primary hepatocellular disease Mild left hydronephrosis 6 mm upper pole left renal calculus
== END | disposition home or self-care (01) ==
PROVIDERS: PCP Internal Medicine; Referring Provider Urology; Visit Provider Urology
DX: N20.0 Calculus of kidney (principal); N13.30 Unspecified hydronephrosis
CPT/HCPCS: 76700

== ENCOUNTER → 2024-08-30 | Outpatient (BNVA) | payer MEDICARE, BC, SELFPAY | END | disposition home or self-care (01) | PROVIDERS: PCP Internal Medicine; Referring Provider Internal Medicine; Visit Provider Urology | DX: N13.2 Hydronephrosis with renal and ureteral calculous obstruction (principal); I12.9 Hypertensive chronic kidney disease with stage 1 through stage 4 chronic kidney disease, or unspecified chronic kidney disease; N18.30 Chronic kidney disease, stage 3 unspecified; E78.5 Hyperlipidemia, unspecified; E03.9 Hypothyroidism, unspecified; Z86.73 Personal history of transient ischemic attack (TIA), and cerebral infarction without residual deficits; E66.9 Obesity, unspecified; Z68.26 Body mass index [BMI] 26.0-26.9, adult; Z86.711 Personal history of pulmonary embolism; Z86.718 Personal history of other venous thrombosis and embolism | CPT/HCPCS: 81003; 99212; G0463 ==

== ENCOUNTER → 2024-09-29 | Outpatient (CLI) | payer MEDICARE, BC, SELFPAY ==
[2024-09-23 12:00] LABS: Basophils # (Auto) 0.0 Thou/mm3 (0.0-0.2); Basophils % (Auto) 1 % (0-2.5); Eosinophils # (Auto) 0.2 Thou/mm3 (0.0-0.5); Eosinophils % (Auto) 3 % (0-10); Hematocrit 47.4 % (36.0-46.0); Hemoglobin 15.6 g/dL (12.0-16.0); Immature Granulocytes Auto 0.04 Thou/mm3 (0.00-0.00); Lymphocytes # (Auto) 1.1 Thou/mm3 (1.0-4.8); Lymphocytes % (Auto) 19 % (10-50); Mean Corpuscular HGB Conc 32.9 g/dl (31.0-37.0); Mean Corpuscular Hemoglobin 31.2 pg (25.0-35.0); Mean Corpuscular Volume 95 fL (80-100); Monocytes # (Auto) 0.6 Thou/mm3 (0.0-0.8); Monocytes % (Auto) 10 % (0-12); Neutrophils # (Auto) 3.9 Thou/mm3 (1.8-7.7); Neutrophils % (Auto) 67 % (37-80); Nucleated Red Blood Cell # 0.00 Thou/mm3 (0.00-0.00); Nucleated Red Blood Cell % 0 /100 WBC (0); Platelet Count 156 Thou/mm3 (140-440); RDW Standard Deviation 45.5 fL (36.4-46.3); Red Blood Count 5.00 Miln/mm3 (4.00-5.20); White Blood Count 5.9 Thou/mm3 (3.6-11.0)
[2024-09-23 12:38] LABS: INR 1.0 (0.9-1.3); Partial Thromboplastin Time 23.3 Seconds (22.0-36.0); Prothrombin Time 11.0 Seconds (9.0-12.2)
--- NOTE | 2024-09-29 09:20 | XR_ITS ---
Examination: Breast ultrasound limited, left Date and time of exam: September 29, 2024 1033 hours INDICATIONS: Suspicious nodule left breast 2:00 position on ultrasound July 11, 2024 Technique: Real time tee scale ultrasonographic imaging of the breast , retroarelar and axillary region. Findings: Current sonographic images do not demonstrate definite suspicious nodule Impression: Current sonographic images do not demonstrate a definite suspicious nodule in the 2:00 position left breast 6 month left breast sonogram follow-up is needed
== END | disposition home or self-care (01) ==
LOC: SDIM 09:11
PROVIDERS: Radiology Diagnostic Radiology; PCP Internal Medicine; Referring Provider Internal Medicine; Visit Provider Internal Medicine
DX: R92.8 Other abnormal and inconclusive findings on diagnostic imaging of breast (principal)
CPT/HCPCS: 36415; 76642; 85025; 85610; 85730

== ENCOUNTER → 2024-10-25 | Outpatient (CLI) | payer MEDICARE, BC, SELFPAY ==
--- NOTE | 2024-10-25 09:30 | XR_ITS ---
Examination: CT abdomen and pelvis without contrast. Coronal 3-D reconstructions. Sagittal 2-D reconstructions. Date and time of exam:October 25, 2024 0955 hours, comparison April 06, 2024 INDICATIONS: Flank pain 8 months, history kidney stones lithotripsy February 18, 2024 CTDI: vol (mGy): 9.33 DLP: (mGycm): 481 Technique: Axial images of the abdomen have been obtained, 3 mm slice thickness Intravenous contrast material has not been administered. Low dose protocols were performed. One or more of the following dose reduction techniques were used; automated exposure control, adjustment of the mA and/or KV according to patient size, use of iterative reconstruction technique. Findings: No focal liver or splenic lesions No gallstones No pancreatic or adrenal mass. Multiple bilateral 1 mm renal calculi, no hydronephrosis or ureteral calculi Aorta normal size No bowel obstruction No pericecal inflammatory change. Colonic diverticulosis Contracted urinary bladder Advanced diffuse lumbar degenerative disc disease IMPRESSION: Multiple bilateral 1 mm renal calculi, no hydronephrosis or ureteral calculi
== END | disposition home or self-care (01) ==
LOC: CCTX 09:23
PROVIDERS: PCP Internal Medicine; Referring Provider Urology; Visit Provider Urology
DX: N20.0 Calculus of kidney (principal)
CPT/HCPCS: 74176

== ENCOUNTER → 2024-12-05 | Outpatient (BNVA) | payer MEDICARE, BC, SELFPAY | END | disposition home or self-care (01) | PROVIDERS: PCP Internal Medicine; Referring Provider Internal Medicine; Visit Provider Urology | DX: N20.0 Calculus of kidney (principal); I12.9 Hypertensive chronic kidney disease with stage 1 through stage 4 chronic kidney disease, or unspecified chronic kidney disease; N18.30 Chronic kidney disease, stage 3 unspecified; E78.00 Pure hypercholesterolemia, unspecified; Z86.718 Personal history of other venous thrombosis and embolism; Z86.711 Personal history of pulmonary embolism; E03.9 Hypothyroidism, unspecified; Z86.73 Personal history of transient ischemic attack (TIA), and cerebral infarction without residual deficits | CPT/HCPCS: 81003; 99212; G0463 ==

== ENCOUNTER → 2024-12-26 | Outpatient (CLI) | payer MEDICARE, BC, SELFPAY ==
[2024-12-26 10:44] LABS: Basophils # (Auto) 0.0 Thou/mm3 (0.0-0.2); Basophils % (Auto) 1 % (0-2.5); Eosinophils # (Auto) 0.2 Thou/mm3 (0.0-0.5); Eosinophils % (Auto) 3 % (0-10); Hematocrit 47.3 % (36.0-46.0); Hemoglobin 15.5 g/dL (12.0-16.0); Immature Granulocytes Auto 0.05 Thou/mm3 (0.00-0.00); Lymphocytes # (Auto) 1.2 Thou/mm3 (1.0-4.8); Lymphocytes % (Auto) 18 % (10-50); Mean Corpuscular HGB Conc 32.8 g/dl (31.0-37.0); Mean Corpuscular Hemoglobin 30.8 pg (25.0-35.0); Mean Corpuscular Volume 94 fL (80-100); Monocytes # (Auto) 0.7 Thou/mm3 (0.0-0.8); Monocytes % (Auto) 10 % (0-12); Neutrophils # (Auto) 4.4 Thou/mm3 (1.8-7.7); Neutrophils % (Auto) 68 % (37-80); Nucleated Red Blood Cell # 0.00 Thou/mm3 (0.00-0.00); Nucleated Red Blood Cell % 0 /100 WBC (0); Platelet Count 177 Thou/mm3 (140-440); RDW Standard Deviation 44.0 fL (36.4-46.3); Red Blood Count 5.03 Miln/mm3 (4.00-5.20); White Blood Count 6.4 Thou/mm3 (3.6-11.0)
[2024-12-26 10:58] LABS: Alanine Aminotransferase 15 U/L (10-49); Albumin, Serum 4.3 gm/dL (3.4-4.8); Albumin/Globulin Ratio 1.7 (1.2-2.2); Alkaline Phosphatase 49 U/L (46-116); Anion Gap 9 (7-16); Aspartate Amino Transferase 25 U/L (0-34); BUN/Creatinine Ratio 15 Ratio (12-20); Bilirubin,Direct 0.3 mg/dL (0.0-0.3); Bilirubin,Total 0.9 mg/dL (0.3-1.2); Blood Urea Nitrogen 17 mg/dL (9-23); Calcium 9.4 mg/dL (8.3-10.6); Calcium (Corrected) 9.4 mg/dL (8.5-10.1); Carbon Dioxide 30.5 mMol/L (20.0-31.0); Cardiac Risk Estimate 3.3 RATIO (3.7-5.6); Chloride 99 mMol/L (98-107); Cholesterol 197 mg/dL (132-200); Creatinine (Component) 1.1 mg/dL (0.6-1.3); Free T4 (Free Thyroxine) 1.48 ng/dL (0.89-1.76); Globulin 2.5 gm/dL (2.3-3.5); Glucose 90 mg/dL (74-106); HDL Cholesterol 60 mg/dL (40-60); LDL Cholesterol,Calculated 119 mg/dL (0-130); Osmolality,Calculated 277 (275-295); Potassium 4.4 mMol/L (3.4-5.1); Sodium 138 mMol/L (136-145); Thyroid Stimulating Hormone 2.86 uIU/mL (0.55-4.78); Total Protein 6.8 gm/dL (5.7-8.2); Triglycerides 92 mg/dL (30-150); eGFR 50 See Note
[2024-12-26 11:07] LABS: Collection Type, Urine Clean Catch
[2024-12-26 11:49] LABS: Bilirubin,Urine Negative (Negative); Blood,Urine Negative (Negative); Clarity,Urine Clear (Clear/Hazy); Color,Urine Lt-Yellow (Lt Yel-Yel); Glucose, Urine Negative (Negative); Ketones,Urine Negative (Negative); Leukocyte Esterase,Urine Positive (Negative); Nitrite,Urine Negative (Negative); PH,Urine 6.5 (5.0-7.0); Protein,Urine Negative (Neg - Trace); RBC,Urine 3 /hpf (0-3); Specific Gravity,Urine 1.020 (1.001-1.035); Squamous Epithelial Cell,Urine 2 /hpf (0-5); Urobilinogen,Urine Negative mg/dL (0.0-1.0); WBC,Urine 14 /hpf (0-5)
== END | disposition home or self-care (01) ==
LOC: COPL 09:40
PROVIDERS: PCP Internal Medicine; Referring Provider Internal Medicine; Visit Provider Internal Medicine Cardiovascular Disease
DX: I10 Essential (primary) hypertension (principal); E78.5 Hyperlipidemia, unspecified; I20.9 Angina pectoris, unspecified; E03.9 Hypothyroidism, unspecified
CPT/HCPCS: 36415; 80053; 80061; 81001; 82248; 84439; 84443; 85025